=== PATIENT | male | born 1955 | race Caucasian/White ===

== ENCOUNTER → 2018-01-12 12:16 | Outpatient (CLI) | payer BC, SELFPAY ==
[2018-01-12 13:26] LABS: AST(SGOT) 15 U/L (15-37); Alanine Aminotransfer ALT/SGPT 24 U/L (16-61); Albumin, Serum 3.6 g/dL (3.2-5.0); Alkaline Phosphatase 118 U/L (45-117); Bilirubin, Direct 0.13 mg/dL (0.00-0.30); Cholesterol 186 mg/dL (200); Globulin 3.9 g/dL (2.2-4.2); High Density Lipoprotein 39 mg/dL; Protein, Total 7.5 g/dL (6.4-8.2); Triglycerides 126 mg/dL; Very Low Density Lipoprotein 25 mg/dL (5-40)
== END ==
PROVIDERS: Family Provider Preventive Medicine Occupational Medicine; PCP Preventive Medicine Occupational Medicine; Visit Provider Physician Assistant Medical
DX: E78.5 Hyperlipidemia, unspecified (principal); Z79.899 Other long term (current) drug therapy
CPT/HCPCS: 36415; 80061; 80076; 84153

== ENCOUNTER → 2018-07-08 09:53 | Outpatient (CLI) | payer BC, SELFPAY ==
[2018-07-08 11:32] LABS: AST(SGOT) 12 U/L (15-37); Alanine Aminotransfer ALT/SGPT 24 U/L (16-61); Albumin, Serum 3.6 g/dL (3.2-5.0); Alkaline Phosphatase 101 U/L (45-117); Bilirubin, Direct 0.16 mg/dL (0.00-0.30); Cholesterol 152 mg/dL (200); Globulin 3.6 g/dL (2.2-4.2); High Density Lipoprotein 42 mg/dL; PSA,Total- Diagnostic 5.88 ng/mL (0.0-4.0); Protein, Total 7.2 g/dL (6.4-8.2); Triglycerides 93 mg/dL; Very Low Density Lipoprotein 19 mg/dL (5-40)
== END ==
PROVIDERS: Family Provider Preventive Medicine Occupational Medicine; PCP Preventive Medicine Occupational Medicine; Referring Provider Urology; Visit Provider Urology
DX: R97.20 Elevated prostate specific antigen [PSA] (principal); E78.5 Hyperlipidemia, unspecified
CPT/HCPCS: 36415; 80061; 80076; 84153

== ENCOUNTER → 2019-01-11 14:45 | Outpatient (CLI) | payer BC, SELFPAY ==
[2018-08-18 16:29] VITALS: BMI 29.7
[2019-01-11 16:02] LABS: PSA,Total- Diagnostic 5.61 ng/mL (0.0-4.0)
== END ==
PROVIDERS: Family Provider Preventive Medicine Occupational Medicine; PCP Preventive Medicine Occupational Medicine; Referring Provider Urology; Visit Provider Urology
DX: R97.20 Elevated prostate specific antigen [PSA] (principal)
CPT/HCPCS: 36415; 84153

== ENCOUNTER 2019-08-09 12:02 | Emergency (ER) | payer MEDICARE, BC, SELFPAY ==
[2018-08-18 16:29] VITALS: BMI 29.7
[2019-08-09 12:03] VITALS: BP 137/77; PULSE 81; RESP 16; TEMP 37.1; O2SAT 98
--- NOTE | 2019-08-09 12:45 | CT_ITS ---
STUDY: CT ABDOMEN AND PELVIS WITHOUT CONTRAST REASON FOR EXAM: Male, 63 years old. Left lower quadrant pain. History of diverticulitis. RADIATION DOSAGE (If Supplied By Facility): CTDIvol = ( 12.09 ) mGy, DLP = ( 811.29 ) mGycm TECHNIQUE: Transaxial images were obtained from the dome of the diaphragm to the symphysis pubis without oral contrast, and without intravenous contrast. Sagittal and coronal images were reconstructed. Individualized dose optimization techniques were used for this CT. COMPARISON: None. FINDINGS: The visualized lung bases are unremarkable. The visualized portions of the heart are within normal limits. Normal liver. Normal gallbladder and extrahepatic biliary system. Normal spleen. Normal pancreas. Normal bilateral adrenal glands. 1 cm cyst in the lower pole of the right kidney. Normal left kidney. There is a small hiatal hernia. Normal small intestine. There is diverticulosis, with thickening of the colon wall, and pericolonic inflammation changes consistent with acute diverticulitis. The appendix is visualized and appears normal. There is diffuse atherosclerotic calcification of the abdominal aorta, without a demonstrated aneurysm. Normal inferior vena cava. There is borderline retroperitoneal lymphadenopathy with enlarged nodes no greater than 10mm in the short axis diameter. Thickened gallbladder wall. There is enlargement of the prostate gland. The prostate measures 4.5 sinus by 5.2 cm. Prostatic calcifications. Small rounded calcifications are seen in the right and left scrotal sacs. Small bilateral inguinal hernias containing fat. Grade 1 anterolisthesis of L5 on S1 with spondylolysis of the pars interarticularis of the L5 vertebrae. Mild degree of disc space narrowing in the lower lumbar spine. Old compression fracture of the T8 vertebrae. CT/Abdomen/Pelvis W IV Cont ONLY IMPRESSION: No uncomplicated acute sigmoid diverticulitis. Thickened gallbladder wall. Enlargement of the prostate with calcifications. Electronically Signed: Beau العلي, at 14:13 EST , Service support ,
[2019-08-09] MEDS: 0.9% Normal Saline 1,000 ML 1000 ML IV (13:05)
--- NOTE | 2019-08-09 13:10 | ED.VIS.GI ---
History of Present Illness <Johny Membreno - Last Filed: 08/09/19 14:54> Informant: Patient, Family - Abdominal Pain/Flank Pain Onset: Days - 3 days Context: Gradual Onset Timing: Continuous Quality: Dull Location: LLQ Current Severity: Moderate Maximum Severity: Severe Worsened by: Car ride, Movement Relieved by: Remaining Still - Nausea/Vomiting/Emesis GI Symptom: Negative for: Nausea, Vomiting - Diarrhea/Melena/Hematochezia GI Symptom: Diarrhea. Negative for: Melena, Hematochezia Onset: Yesterday Stool Quality: Loose, Watery Severity: Moderate Episodes: 3 Associated Symptoms: Negative for: Dysuria, Frequency, Hematuria, Urgency Narrative: 63-year-old male with a past medical history of hypertension and hypercholesterolemia presents to the emergency department with 3 days of worsening left lower quadrant abdominal pain. Prior similar symptoms: No Recent Illness/Hospitalization: No <Jordin Meza - Last Filed: 08/09/19 15:01> Chief Complaint: Abd Pain Past Medical History <Johny Membreno - Last Filed: 08/09/19 14:54> Prior records reviewed: Yes Past Medical History: - - HTN, hypercholesterolemia Surgical History: herniorrhaphy Lives: With Family Smoking Status: Never smoker <Jordin Meza - Last Filed: 08/09/19 15:01> - Allergies and Home Meds Allergies/Adverse Reactions: Allergies No Known Allergies Allergy (Verified 08/09/19 12:07) Primary Care Physician: Bora Gould DO [Primary Care Provider] - 5-7 Days Review of Systems All systems negative except as indicated General: Denies: Chills, Fever Cardiovascular: Denies: Chest pain Respiratory: Denies: Dyspnea Gastrointestinal: Reports: Abdominal pain, Diarrhea. Denies: Nausea, Vomiting, Constipation, Melena, Hematochezia Genitourinary: Denies: Dysuria, Hematuria, Frequency Musculoskeletal: Denies: Neck pain, Back pain Skin: Denies: Rash Neurological: Denies: Headache, Weakness <Jordin Meza - Last Filed: 08/09/19 15:01> Physical Exam Vital Signs/Narrative: Vital Signs Temp Pulse Resp BP Pulse Ox 08/09/19 12:03 98.8 F 81 16 137/77 H 98 <Johny Membreno - Last Filed: 08/09/19 14:54> Vital Signs/Narrative: Vital Signs Temp Pulse Resp BP Pulse Ox 08/09/19 12:03 98.8 F 81 16 137/77 H 98 Inital Vital Signs reviewed: Yes General: Well nourished, Well developed, No Acute Distress Head: Normocephalic, Atraumatic Eyes: Perrl, EOMI ENT: Moist mucous membranes Neck: Supple, Nontender, No lymphadenopathy Cardiovascular: Regular rate, Regular rhythm, No murmurs Respiratory: No distress, CTA bilaterally, Chest nontender Abdomen: Soft, Nondistended, Normal bowel sounds, No masses, Tender - LLQ TTP Back: Nontender, Normal Inspection. Negative for: CVA tenderness Extremities: Nontender, No edema Skin: Normal color, No rash Neurological: Alert, Oriented x3 <Jordin Meza - Last Filed: 08/09/19 15:01> Diagnostic/Tx/Re-eval - Medical Decision Making Patient evaluated with our physician community program assistant. 3-year-old male with left lower quadrant abdominal pain for several days. No trauma. HEENT exam unremarkable. Neck nontender. Lungs clear to auscultation. Heart regular rhythm no murmur. Abdomen is soft. Nondistended. Normal bowel sounds. No peritoneal signs. No pulsatile mass. He is mildly tender left lower quadrant. Right upper right lower quadrant unremarkable. No signs of obstruction. Patient moving all 4 extremities. Neurologically is awake and alert. CAT scan with IV contrast shows left lower quadrant sigmoid diverticulitis. No abscess no perforation. Unremarkable. CBC shows slightly elevated white count. Otherwise labs are unremarkable. Patient's repeat exam is doing well at 1450 p.m. Discussed all test results and treatment with him. He will be started on both Cipro twice daily and Flagyl 3 times daily for 10 days and follow-up with his doctor. He will use Tylenol and/or Motrin at home for pain. He did not want anything stronger. Impression 1. Acute left lower quadrant abdominal pain secondary to sigmoid diverticulitis <Johny Membreno - Last Filed: 08/09/19 14:54> CT: Abdomen and Pelvis - Acute uncomplicated sigmoid diverticulitis <Jordin Meza - Last Filed: 08/09/19 15:01> ED Disposition <Johny Membreno - Last Filed: 08/09/19 14:54> <Jordin Meza - Last Filed: 08/09/19 15:01> - Plan for ED Patient: Disposition: Home or Assisted Living Instructions: Diverticulitis Prescriptions: Ciprofloxacin [Cipro] 500 mg PO BID #20 tab Prescription Printed metroNIDAZOLE [Flagyl] 500 mg PO Q8H #30 tab Prescription Printed Referrals: Bora Gould DO [Primary Care Provider] - 5-7 Days Additional Instructions: You have diverticulitis or inflammation or infection of your left lower colon. Cipro 1 pill twice a day for 10 days. Flagyl 1 pill 3 times a day for 10 days. Complete both antibiotics. Up with your doctor to ensure your improving return to ER if you are feeling a lot worse.
[2019-08-09 13:12] LABS: Red Blood Cells-Urine 0 SEEN /hpf (0-5)
[2019-08-09 13:14] LABS: Color, Urine Yellow (Yellow); Glucose, Dipstick Normal (Normal); Ketone-Dipstick Negative (Negative); Leukocyte Esterase-Dipstick Negative /ul (Negative); Nitrite-Dipstick Negative (Negative); Occult Blood-Urine Negative /ul (Negative); Protein-Dipstick Negative (Negative); Urine Bilirubin Dipstick Negative (Negative); Urine Clarity Sl. Cloudy (Clear); Urine Urobilinogen Normal (Normal); Urine pH 6.5 (5.0 - 8.0)
[2019-08-09 13:16] LABS: Absolute Lymphocyte Count 1.48 X10^3/uL (0.83-4.51); Absolute Neutrophil Count 11.5 X10^3/uL (2.0-7.7); Basophil# 0.04 X10^3/uL; Basophil% 0.3 % (0-1); Eosinophil# 0.07 X10^3/uL; Eosinophils% 0.5 % (0-5); Hematocrit 41.9 % (40-54); Hemoglobin 13.9 g/dL (13.0-16.5); Lymphocyte # 1.48 X10^3/ul (4.0); Lymphocyte % 10.5 % (19-41); Mean Corp Hgb Conc 33.2 g/dL (32-36); Mean Corpuscular Hgb 31.2 pg (27.0-32.0); Mean Corpuscular Volume 93.9 fL (80-94); Mean Platelet Vol. 9.5 fl (6.2-12.0); Monocyte# 0.98 X10^3/uL; Monocyte% 6.9 % (0-10); NRBC Flagged by Analyzer 0 % (0-5); Neutrophil # 11.47 X10^3/uL (2.7-7.7); Neutrophil % 81.2 % (47-70); Platelet Count 231 K/mm3 (150-450); RBC Distribution Width CV 12.9 % (11.6-14.6); RBC Distribution Width SD 44.3 fl (35.1-43.9); Red Blood Count 4.46 M/mm3 (4.6-6.2); White Blood Count 14.1 K/mm3 (4.4-11.0)
[2019-08-09 13:24] LABS: Bacteria 1+ /hpf (None Seen); Mucous, Urine 1+ /hpf (<or=2+); Squamous Epithelial Cells - UA 0-5 SEEN /hpf (0-5); White Blood Cells 0-5 SEEN /hpf (0-5)
[2019-08-09 13:32] LABS: ALB/GLOB Ratio 0.9 RATIO (0.9-2.4); AST(SGOT) 8 U/L (15-37); Alanine Aminotransfer ALT/SGPT 19 U/L (16-61); Albumin, Serum 3.6 g/dL (3.2-5.0); Alkaline Phosphatase 113 U/L (45-117); Anion Gap 3 (5-15); BUN 10 mg/dL (7-18); BUN/Creat Ratio 11.9 RATIO (10-20); Calcium,Total 9.1 mg/dL (8.5-10.1); Chloride 108 mmol/L (98-107); Creatinine, Serum 0.84 mg/dL (0.70-1.30); EST Glomerular Filtration Rate 97 mL/min (>60); Est Glom Filt Rate - Afr Amer 118 mL/min (>60); Estimated Creatinine Clearance 88.84 ml/min; Globulin 3.8 g/dL (2.2-4.2); Glucose 95 mg/dL (74-106); Potassium 3.9 mmol/L (3.5-5.1); Protein, Total 7.4 g/dL (6.4-8.2); Sodium Level 139 mmol/L (136-145)
[2019-08-09] MEDS: Ketorolac 15 MG/ML Vial IV (13:37)
--- NOTE | 2019-08-09 14:56 | ED.DEP ---
ED Disposition - Plan for ED Patient: Disposition: Home or Assisted Living Instructions: Diverticulitis Prescriptions: Ciprofloxacin [Cipro] 500 mg PO BID #20 tab Prescription Printed metroNIDAZOLE [Flagyl] 500 mg PO Q8H #30 tab Prescription Printed Referrals: Bora Gould DO [Primary Care Provider] - 5-7 Days Additional Instructions: You have diverticulitis or inflammation or infection of your left lower colon. Cipro 1 pill twice a day for 10 days. Flagyl 1 pill 3 times a day for 10 days. Complete both antibiotics. Up with your doctor to ensure your improving return to ER if you are feeling a lot worse.
[2019-08-09 15:01] VITALS: BP 116/70; PULSE 60; RESP 17; O2SAT 98
[2019-08-09] MEDS: metroNIDAZOLE 500 MG Tablet PO (15:06)
[2019-08-09] MEDS: Ciprofloxacin 500 MG Tablet PO (15:06)
== END 2019-08-09 15:09 | disposition home or self-care (01) ==
PROVIDERS: Emergency Provider Physician Assistant Medical; Family Provider Preventive Medicine Occupational Medicine; PCP Preventive Medicine Occupational Medicine
DX: K57.32 Diverticulitis of large intestine without perforation or abscess without bleeding (principal); I10 Essential (primary) hypertension; E78.00 Pure hypercholesterolemia, unspecified
CPT/HCPCS: 74177; 80053; 81001; 85025; 96361; 96374; 99284; J7030; Q9967

== ENCOUNTER → 2019-09-11 09:52 | Outpatient (CLI) | payer MEDICARE, BC, SELFPAY ==
[2019-09-11 12:41] LABS: AST(SGOT) 13 U/L (15-37); Alanine Aminotransfer ALT/SGPT 27 U/L (16-61); Albumin, Serum 3.7 g/dL (3.2-5.0); Alkaline Phosphatase 93 U/L (45-117); Bilirubin, Direct 0.11 mg/dL (0.00-0.30); Cholesterol 161 mg/dL (200); Globulin 3.3 g/dL (2.2-4.2); High Density Lipoprotein 41 mg/dL; Triglycerides 77 mg/dL; Very Low Density Lipoprotein 15 mg/dL (5-40)
== END ==
PROVIDERS: Family Provider Preventive Medicine Occupational Medicine; PCP Preventive Medicine Occupational Medicine; Referring Provider Internal Medicine Cardiovascular Disease; Visit Provider Internal Medicine Cardiovascular Disease
DX: E78.00 Pure hypercholesterolemia, unspecified (principal); E78.5 Hyperlipidemia, unspecified; I25.10 Atherosclerotic heart disease of native coronary artery without angina pectoris
CPT/HCPCS: 36415; 80061; 80076

== ENCOUNTER → 2020-01-27 | Outpatient (CLI) | payer MEDICARE, BC, SELFPAY ==
[2019-09-22 10:47] VITALS: BMI 30.2
== END | disposition home or self-care (01) ==
PROVIDERS: PCP Preventive Medicine Occupational Medicine; Referring Provider Urology; Visit Provider Urology
DX: R97.20 Elevated prostate specific antigen [PSA] (principal)
CPT/HCPCS: 36415; 84153

== ENCOUNTER → 2020-02-02 | Outpatient (CLI) | payer MEDICARE, BC, SELFPAY ==
[2019-09-22 10:47] VITALS: BMI 30.2
--- NOTE | 2020-02-02 14:21 | CT_ITS ---
STUDY: CT ABDOMEN AND PELVIS WITH CONTRAST REASON FOR EXAM: Male, 64 years old. LLQ PAIN W/ DIVERTICULITIS SINCE 08/2019 -- SURG-UMBILICAL and amp; INGUINAL HERNIA REPAIR RADIATION DOSAGE (If Supplied By Facility): CTDIvol = ( 13.48 ) mGy, DLP = ( 997.80 ) mGycm TECHNIQUE: Transaxial images were obtained from the dome of the diaphragm to the symphysis pubis with oral contrast. Oral and amp; IV Readi-CAT and amp; 100mL Isovue-300 was administered. Sagittal and coronal images were reconstructed. Individualized dose optimization techniques were used for this CT. COMPARISON: Comparison is made with prior study August 09, 2019. FINDINGS: The visualized lung bases are unremarkable. The visualized portions of the heart are within normal limits. Normal liver. Normal gallbladder and extrahepatic biliary system. Normal spleen. Normal pancreas. Normal bilateral adrenal glands. Normal right kidney. Normal left kidney. There is a small hiatal hernia. Normal small intestine. Normal colon. The appendix is visualized and appears normal. There is scattered atherosclerotic calcification of the abdominal aorta, without a demonstrated aneurysm. Normal inferior vena cava. There is borderline retroperitoneal lymphadenopathy with enlarged nodes no greater than 10mm in the short axis diameter. Normal urinary bladder. There are prostatic calcifications. Prostatic enlargement. The prostate measures 5.2 cm by 4.6 cm. There is a left-sided inguinal hernia containing adipose tissue. Normal osseous structures. CT/Abdomen/Pelvis WITH Contrast IMPRESSION: Prostatic enlargement with indentation of the bladder base. Small left inguinal hernia containing fat. Electronically Signed: Beau العلي, at 16:05 EDT , Service support ,
[2020-02-02 14:51] LABS: CREATININE FINGERSTICK 0.9 mg/dL (0.70-1.30)
== END | disposition home or self-care (01) ==
LOC: CT 14:17
PROVIDERS: PCP Preventive Medicine Occupational Medicine; Referring Provider Preventive Medicine Occupational Medicine; Visit Provider Preventive Medicine Occupational Medicine
DX: R10.32 Left lower quadrant pain (principal)
CPT/HCPCS: 74177; Q9967

== ENCOUNTER 2020-04-02 18:55 | Emergency (ER) | payer MEDICARE, BC, SELFPAY ==
[2019-09-22 10:47] VITALS: BMI 30.2
[2020-04-02 18:55] VITALS: BP 123/78; PULSE 83; RESP 16; TEMP 37.4; O2SAT 98; BMI 29.6
[2020-04-02] MEDS: Ondansetron 4 MG/2 ML Vial IV (19:24)
[2020-04-02] MEDS: morphine 8 MG/ML Syringe IV (19:24)
--- NOTE | 2020-04-02 19:28 | ED.VISSUMM ---
- ER Visit Summary Date of Service: 04/02/20 Chief Complaint: Left ankle and foot pain after falling from a ladder about 10 to 11 feet. History of Present Illness: The patient is a [address] of hypertension high cholesterol. Patient was working on his camper. Ladder slipped out from under him he fell 10 to 11 feet to the ground. He landed standing up injuring his left ankle and foot. No prior history. Denies any LOC or significant head injury. Denies any back or chest pain. No other complaints. He is on no blood thinners other than baby aspirin. Physical Examination: Older male no acute distress other than pain. Vital signs are stable afebrile. HEENT exam unremarkable atraumatic. Dry reactive light. No signs of trauma to his face or scalp nontender no swelling. C-spine nontender. Trachea midline. Lungs clear to auscultation bilaterally. Heart regular rhythm no murmur. Chest wall nontender. Abdomen soft nontender. Pelvic girdle intact. Both upper extremities are full range of motion are nontender neurovascular intact with 5-5 shop hand strength. Right lower extremity is nontender. Left lower extremity tender and swollen at the ankle and primarily the calcaneus. Foot is neurovascular intact. Normal DP pulse. Able to wiggle his toes. Normal touch sensation. Hip, thigh, knee and proximal tib-fib are nontender no deformity. Test Results: Left ankle x-ray 3 views comminuted calcaneus fracture. Left foot x-ray 3 views again show the comminuted calcaneus fracture. Also what appears to be an old fracture of the base of the fifth metatarsal. Patient has no pain at that site. I discussed all x-rays with him and family. Emergency Department Course and Treatment: Patient treated with morphine Zofran for his ankle injury. X-rays are being obtained. Treatment Plan: Patient be placed in a short leg posterior splint. Walker to ambulate. No weightbearing. Call and follow-up with Dr. Enrike Weber of [facility] tomorrow. Disposition: Discharge Impression: Fall from a ladder from approximately 11 feet. Acute left calcaneus fracture Short leg posterior splint by ER This note was generated with [employer] dictation software. It may contain incorrect words, spelling, and punctuation that were not noted in review of the chart prior to signing ED Disposition - Plan for ED Patient: Referrals: Bora Gould DO [Primary Care Provider] -
--- NOTE | 2020-04-02 20:00 | RAD_ITS ---
STUDY: X-RAY - LEFT SHOULDER REASON FOR EXAM: Male, 64 years old. Fall today. Lt shoulder pain. TECHNIQUE: 3 view(s) of the shoulder. COMPARISON: None. FINDINGS: Narrowed glenohumeral articulation. Narrowed subacromial space consistent with rotator cuff tendon tear. Normal acromioclavicular joint. Normal acromion. Normal humeral head and visualized proximal humerus. The soft tissue structures are unremarkable. Normal visualized pulmonary apex. RAD/Shoulder min 2 Views IMPRESSION: Degenerative changes. No evidence for acute fracture. Electronically Signed: Kevin Ralph MD at 20:35 EDT , Service support ,
--- NOTE | 2020-04-02 20:00 | RAD_ITS ---
STUDY: X-RAY - LEFT FOOT CLINICAL: Male, 64 years old. pt fell off a ladder approx 11 ft onto feet. Generalized left foot pain TECHNIQUE: 3 view(s) of the foot. COMPARISON: None. FINDINGS: Normal talus,, and tarsal bones. Normal visualized subtalar, talonavicular, calcaneocuboid, tarsal and tarsometatarsal articulations. Transverse fracture of the base of the fifth metatarsal with mild separation of fracture fragments Mildly impacted comminuted fracture of the calcaneus with mild separation of fracture fragments. Normal metatarsophalangeal joint of the great toe. Normal tibial and fibular sesamoid bones. Normal interphalangeal joint of the great toe. Normal phalanges of the great toe. Normal second through fifth metatarsophalangeal joints. Normal interphalangeal joints and phalanges of the lesser toes. Diffuse soft tissue swelling of the hindfoot.. RAD/Foot min 3 Views IMPRESSION: Mildly impacted comminuted fracture of the calcaneus and transversely oriented fracture through base of the fifth metatarsal. CT would be useful for further evaluation of calcaneal fracture Electronically Signed: Kevin Ralph MD at 20:35 EDT , Service support ,
--- NOTE | 2020-04-02 20:00 | RAD_ITS ---
STUDY: X-RAY - LEFT ANKLE REASON FOR EXAM: Male, 64 years old. pt fell off a ladder approx 11 ft onto feet. Generalized left ankle pain. TECHNIQUE: 3 view(s) of the ankle. COMPARISON: None. FINDINGS: Normal visualized distal tibia and fibula. Normal medial and lateral malleoli. Normal tibiotalar articulation and ankle mortise. Normal visualized talus. Acute mildly impacted comminuted fracture of the calcaneus with mild separation of fracture fragments. Deformity of the base of fifth metatarsal possibly due to chronic posttraumatic deformity The visualized subtalar, talonavicular, calcaneocuboid and tarsal articulations are normal. Diffuse soft tissue swelling of the hindfoot. RAD/Ankle min 3 Views IMPRESSION: Acute mildly impacted comminuted calcaneal fracture. Deformity of the base of fifth metatarsal possibly due to old trauma Electronically Signed: Kevin Ralph MD at 20:42 EDT , Service support ,
[2020-04-02 20:53] VITALS: BP 115/82; PULSE 78; RESP 15; O2SAT 98
--- NOTE | 2020-04-02 21:19 | DCINST.ED_ITS ---
ED Disposition - Plan for ED Patient: Disposition: Home or Assisted Living Prescriptions: Hydrocodone/Acetaminophen [[place] 5-325 Tablet] 1 ea PO Q4H PRN PRN #30 tab PRN Reason: Pain Or Fever Prescription Printed Hydrocodone/Acetaminophen [[place] 7.5-325 Tablet] 1 ea PO Q4H PRN PRN 5 Days #30 tab PRN Reason: Pain Or Fever Prescription Printed Referrals: Elver Weber MD [STAFF PHYSICIAN] - As soon as possible Additional Instructions: You have a calcaneus fracture or heel bone fracture. No weightbearing. Ice and elevate. [place] which is generic Vicodin for pain. Follow-up with Dr. Enrike Weber's office tomorrow to be seen this week.
[2020-04-02] MEDS: morphine 8 MG/ML Syringe 6 MG IV (21:40)
[2020-04-02 22:10] VITALS: BP 127/64; PULSE 78; RESP 17; O2SAT 99
[2020-04-02 22:30] VITALS: BP 118/73; PULSE 79; RESP 17; O2SAT 99
== END 2020-04-02 22:31 | disposition home or self-care (01) ==
PROVIDERS: Emergency Provider Emergency Medicine; PCP Preventive Medicine Occupational Medicine
DX: S92.002A Unspecified fracture of left calcaneus, initial encounter for closed fracture (principal); W11.XXXA Fall on and from ladder, initial encounter; Y93.89 Activity, other specified; Y92.89 Other specified places as the place of occurrence of the external cause; Y99.8 Other external cause status
CPT/HCPCS: 29515; 73030; 73610; 73630; 96374; 96375; 96376; 99285; A4216; J2405

== ENCOUNTER → 2020-04-03 | Outpatient (CLI) | payer MEDICARE, BC, SELFPAY ==
[2020-04-02 18:55] VITALS: BMI 29.6
--- NOTE | 2020-04-03 16:12 | EKG12_ITS ---
Test Reason : PRE-OP Blood Pressure : / mmHG Vent. Rate : 091 BPM Atrial Rate : 091 BPM P-R Int : 156 ms QRS Dur : 092 ms QT Int : 366 ms P-R-T Axes : 051 028 040 degrees QTc Int : 450 ms Normal sinus rhythm Normal ECG Confirmed by HELEN MA ([id number]), editor producer RADHA MILLARD ([id number]) on 04/08/2020 2:16:03 PM Referred By: Heather Groves Confirmed By:HELEN MA
--- NOTE | 2020-04-03 16:14 | CT_ITS ---
CT of the left foot and ankle INDICATION: Trauma TECHNIQUE: CT of the left foot and ankle was performed in the axial plane without contrast followed by sagittal and coronal reconstructions. Radiographic technique was optimized to limit patient radiation dose. DLP was 476.57 FINDINGS: There is an acute impacted comminuted intra-articular fracture of the calcaneus with very mild separation of fracture fragments. The subtalar joints appear to be well-maintained.. There is also a tiny comminuted chip fracture of the posterior talus with minor separation of fracture fragments. The ankle joint space is well-maintained. No other fractures are identified CT/Extremity Lower without Contra IMPRESSION: Acute impacted comminuted intra-articular fractures of the calcaneus with mild separation of fracture fragments in association with tiny comminuted fracture of the posterior talus. Subtalar joints appear to be well maintained. No other fractures are identified Electronically Signed: Kevin Ralph MD at 16:46 EDT , Service support ,
--- NOTE | 2020-04-03 16:18 | RAD_ITS ---
STUDY: X-RAY CHEST REASON FOR EXAM: Male, 64 years old. pre-op TECHNIQUE: PA and lateral COMPARISON: May 26, 2017 FINDINGS: The lungs are clear and expanded. There is no demonstrated pleural abnormality. Normal size heart. Normal mediastinum. Tiny right perihilar granulomatous calcifications. Normal visualized pulmonary arteries. Normal visualized aortic arch and descending thoracic aorta. Dorsal spine demonstrates degenerative change and multilevel chronic compression deformities Normal visualized ribs, clavicles, and shoulders. There is no demonstrated abnormality of the visualized soft tissue structures of the upper abdomen. No significant change since prior exam RAD/Chest PA and Lateral IMPRESSION: No acute cardiopulmonary pathology Electronically Signed: Kevin Ralph MD at 17:00 EDT , Service support ,
[2020-04-03 17:14] LABS: Absolute Lymphocyte Count 2.15 X10^3/uL (0.83-4.51); Absolute Neutrophil Count 8.3 X10^3/uL (2.0-7.7); Basophil# 0.03 X10^3/uL; Basophil% 0.3 % (0-1); Eosinophil# 0.07 X10^3/uL; Eosinophils% 0.6 % (0-5); Hematocrit 42.6 % (40-54); Hemoglobin 14.1 g/dL (13.0-16.5); Lymphocyte # 2.15 X10^3/ul (4.0); Mean Corp Hgb Conc 33.1 g/dL (32-36); Mean Corpuscular Hgb 31.3 pg (27.0-32.0); Mean Corpuscular Volume 94.7 fL (80-94); Mean Platelet Vol. 9.6 fl (6.2-12.0); Monocyte# 0.74 X10^3/uL; Monocyte% 6.5 % (0-10); NRBC Flagged by Analyzer 0 % (0-5); Neutrophil # 8.28 X10^3/uL (2.7-7.7); Neutrophil % 73.1 % (47-70); Platelet Count 252 K/mm3 (150-450); RBC Distribution Width CV 13.2 % (11.6-14.6); RBC Distribution Width SD 44.7 fl (35.1-43.9); White Blood Count 11.3 K/mm3 (4.4-11.0)
[2020-04-03 17:29] LABS: International Normalized Ratio 1.1; Prothrombin Time (Protime)PT. 13.4 SECONDS (11.7-14.9)
[2020-04-03 17:30] LABS: Partial Thromboplast Time 26.7 Seconds (24.1-36.2)
[2020-04-03 17:39] LABS: Hemoglobin A1c 5.2 % (3.8-5.6)
[2020-04-03 17:56] LABS: Anion Gap 6 (5-15); BUN 13 mg/dL (7-18); BUN/Creat Ratio 12.5 RATIO (10-20); Calcium,Total 8.8 mg/dL (8.5-10.1); Chloride 109 mmol/L (98-107); Creatinine, Serum 1.04 mg/dL (0.70-1.30); EST Glomerular Filtration Rate 76 mL/min (>60); Est Glom Filt Rate - Afr Amer 92 mL/min (>60); Glucose 124 mg/dL (74-106); Potassium 3.5 mmol/L (3.5-5.1); Sodium Level 139 mmol/L (136-145)
== END | disposition home or self-care (01) ==
PROVIDERS: PCP Preventive Medicine Occupational Medicine; Referring Provider Registered Nurse; Visit Provider Registered Nurse
DX: Z01.818 Encounter for other preprocedural examination (principal); I10 Essential (primary) hypertension; S92.012A Displaced fracture of body of left calcaneus, initial encounter for closed fracture; M25.572 Pain in left ankle and joints of left foot
CPT/HCPCS: 36415; 71046; 73700; 80048; 83036; 85025; 85610; 85730; 93005

== ENCOUNTER 2020-04-18 13:45 | Observation (INO) | payer MEDICARE, BC, SELFPAY ==
[2020-04-18] VITALS (11 sets, daily range): BP systolic 99–127; BP diastolic 46–90; PULSE 76–108; RESP 14–18; TEMP 36.2–36.9; O2SAT 93–98; BMI 29.5
[2020-04-18] MEDS: Lactated Ringers 1,000 ML 100 ML IV ×2 (09:01→18:40)
[2020-04-18] MEDS: Cefazolin 2 GM in 0.9% Normal Saline 100 ML IV ×2 (09:40→17:26)
--- NOTE | 2020-04-18 10:00 | RAD_ITS ---
STUDY: X-RAY - LEFT CALCANEUS REASON FOR EXAM: Male, 64 years old. ORIF calcaneous TECHNIQUE: 26 intraoperative view(s) of the calcaneus were obtained. COMPARISON: Previous study of 04/02/2020 FINDINGS: Multiple intraoperative views demonstrate internal fixation with 4 screws of previously reported calcaneal fracture. Fracture fragments appear in good alignment. RAD/Calcaneus min 2 Views IMPRESSION: Internal fixation with 4 screws are previously reported calcaneal fracture. Fracture appears in good alignment. Exposure time and estimated radiation dose were not reported. Electronically Signed: Thierno Wong MD at 16:51 EDT , Service support ,
--- NOTE | 2020-04-18 13:52 | RAD_ITS ---
STUDY: X-RAY - LEFT FOOT CLINICAL: Male, 64 years old. post op left calcaneus orif TECHNIQUE: 4 view(s) of the foot. COMPARISON: None. FINDINGS: Status post internal fixation with 4 screws previously noted calcaneal fracture is noted. Fracture appears in good alignment. Normal visualized subtalar, talonavicular, calcaneocuboid, tarsal and tarsometatarsal articulations. A nondisplaced Youngblood fracture of the fifth metatarsal base is noted. This is of indeterminate age. Normal metatarsophalangeal joint of the great toe. Normal tibial and fibular sesamoid bones. Normal interphalangeal joint of the great toe. Normal phalanges of the great toe. Normal second through fifth metatarsophalangeal joints. Normal interphalangeal joints and phalanges of the lesser toes. The soft tissue structures are unremarkable. RAD/Foot min 3 Views IMPRESSION: Internal fixation with 4 screws of a previously noted calcaneal fracture. Fracture appears in good alignment. Nondisplaced Youngblood fracture of indeterminate age of the fifth metatarsal base is again seen. Electronically Signed: Thierno Wong MD at 16:55 EDT , Service support ,
--- NOTE | 2020-04-18 13:58 | RAD_ITS ---
STUDY: X-RAY - LEFT ANKLE REASON FOR EXAM: Male, 64 years old. post op left calcaneus orif TECHNIQUE: 3 view(s) of the ankle. COMPARISON: Prior study of 04/02/2020 FINDINGS: Normal visualized distal tibia and fibula. Normal medial and lateral malleoli. Normal tibiotalar articulation and ankle mortise. There is internal fixation with 4 screws of previously reported calcaneal fracture. Fracture fragments appear in good alignment. The visualized subtalar, talonavicular, calcaneocuboid and tarsal articulations are normal. There is also demonstrated a nondisplaced Youngblood fracture of the base of the fifth metatarsal. The soft tissue structures are unremarkable. RAD/Ankle min 3 Views IMPRESSION: Internal fixation with 4 screws are previously noted comminuted calcaneal fracture, which appears in good position. Nondisplaced fifth metatarsal Youngblood fracture again noted. Electronically Signed: Thierno Wong MD at 16:53 EDT , Service support ,
--- NOTE | 2020-04-18 13:59 | OP.PCM_ITS ---
Problem List (1) Left calcaneal fracture Status: Acute Qualifiers: Encounter type: initial encounter Calcaneus location: body Fracture type: closed Fracture alignment: displaced Qualified Code(s): S92.012A - Displaced fracture of body of left calcaneus, initial encounter for closed fracture Report of Operation Date of Procedure: 04/18/20 Pre-Operative Diagnosis: 1. Left calcaneus fracture, displaced, closed Post-Operative Diagnosis: Same as preoperative Surgery/Procedure Performed:: 1. Open reduction with internal fixation of left calcaneus fracture Description of Surgical Findings:: Consistent with diagnosis. Reduction of deformity achieved and held with internal fixation. Reduction of posterior facet achieved and held with internal fixation. cushion assembler: Heather Groves Type of Anesthesia:: General/Regional - A popliteal and saphenous block was given to the left lower extremity Anesthesiologist: Fred Rajan Special Medications: 2 g of Ancef given preoperatively Specimen's removed: None Drains: None Estimated Blood Loss (mL): 150 Description of Procedure: Pathology: None Anesthesia: General with a popliteal saphenous block to left lower extremity Hemostasis: Pneumatic thigh tourniquet placed at the level of the left thigh at 300 mmHg for 129 minutes Materials: #1. [place] Hydrocet. 2. [place] 4.0 x 36 mm cannulated screw. 3. [place] 4.0 x 34 mm cannulated screw. 4. Gato 5.0 x 44 mm cannulated screw. 5. Gato 5.0 x 48 mm cannulated screw. 6. Size 2-0 Vicryl. 7. Size 3-0 Vicryl. 8. Size 3-0 nylon Injectables: None Complications: None Condition: Stable Indications: Patient is a 64-year-old male with multiple medical problems who suffered a slip and fall off of the roof of his camper on April 02, 2020. Patient states that he fell directly onto his left heel bone. Patient felt immediate pain after the injury, and was unable to bear weight. Patient presented to the [facility] emergency department for further evaluation. At that time, x-rays were taken, revealing calcaneus fracture. Patient followed up with Heather Groves, nurse practitioner, on April 03, 2020. At that time, she ordered a CT scan of his left ankle to do assess and plan for surgical intervention. Patient initially saw me on April 12. At that time, the x-rays and the CT scan were gone over with the patient. I discussed with the patient that he does have a fracture of his heel bone, and discussed th e disease process and nature of the injury. I did discuss that it was in multiple pieces, and that it was shifted out of alignment. Furthermore, the fracture did go into his subtalar joint. I did discuss with the patient that these fractures are difficult to treat, and likely lead to continued arthritis and revisional subtalar joint fusion in the future. I discussed conservative therapy for this, including nonweightbearing and a below the knee cast for period of up to 3 months. I discussed surgical intervention for the patient, including open reduction with internal fixation of the left calcaneus. Risks and benefits of both treatment options were discussed with the patient. Risks of surgical intervention would include but not limited to delayed or nonhealing wounds, delayed or nonhealing bone, DVT, infection, decreased function of limb, continued pain, early onset arthritis, loss of limb, loss of life. All the patient's questions were answered to satisfaction and all of his concerns were addressed. No guarantees were made as to the outcome of the procedure. Due to the fracture that was present, I recommended surgical intervention. Patient displayed verbal understanding, and was agreeable to surgical intervention. Due to the significant swelling that was present, I recommended a least waiting 1 more week to decrease the chance of wound complications. Operative report: Before the patient brought to the operating room, the risks of the surgical intervention were discussed once again with the patient. Risks of surgical intervention would include but not limited to delayed or nonhealing wounds, delayed or nonhealing bone, DVT, infection, decreased function of limb, continued pain, early onset arthritis, loss of limb, loss of life. All the patient's questions were answered to satisfaction and all of his concerns were addressed. No guarantees were made as to the outcome of the procedure. Patient understood all aspects of the procedure, and consent was then signed by the patient. Before the patient was brought to the operating room, the anesthesiologist administered a popliteal and saphenous block to the left lower extremity. Patient was then brought to the operating room and placed on the operating table in supine position. At that time, general anesthesia was obtained and anesthesia took control the airway. Patient was then placed in a lateral decubitus position with care being taken to make sure that all pressure points were well-padded. The left lower extremity was elevated above the right lower extremity via blankets. Next, a well-padded pneumatic thigh tourniquet was placed on the level of the left thigh. The left foot, ankle, leg were then scrubbed, prepped, draped in the usual sterile manner. At this time, attention was then directed to the lateral aspect of the left foot and ankle. Radiographic evaluation was performed to determine the superior, posterior, and inferior aspect of the tuberosity, tip of the fibula, and fourth metatarsal base. These were then marked on the patient. Next, the left lower extremity was elevated and exsanguinated via Esmarch and inflation of the pneumatic tourniquet was performed to 300 mmHg. Attention was then directed back to the lateral aspect of the left foot and ankle. At this time, a #15 blade was used to perform a linear longitudinal incision starting in the distal tip of the lateral malleolus extending distally to the base of the fourth metatarsal. This incision was deepened utilizing sharp and blunt dissection. Care was taken retract all vital neural and vascular structures. All bleeders were cauterized and ligated as necessary. Next, the peroneal tendons were identified. The peroneal tendon sheath was incised along the longitudinal axis of the tendons. The peroneal tendons were then inspected. No damage to the peroneal tendons was identified. These were then retracted inferiorly. Next, an incision was made through the capsule of the posterior, anterior, middle facets of the subtalar joint. The periosteal and capsular structures were then reflected superiorly and inferiorly, thus exposing the subtalar joint at the operative site. At this time, the posterior facet was inspected. The main fracture line was noted to go through the posterior facet out the posterior inferior aspect of the calcaneus body. At this time, the 5.0 external fixator pin was inserted under live radiographic evaluation for the posterior aspect of the calcaneus tuberosity extending superiorly and anteriorly towards the posterior facet. Care was taken make sure that this external fixator pin did not penetrate the fracture and did not penetrate the posterior facet. Once was inserted, the Angelita-Shola maneuver was performed to reduce the calcaneus fracture. Furrichard chun, this reduced the posterior facet back into anatomical alignment. After reduction, this fracture was held via temporary fixation. Radiograph evaluations then performed. The calcaneus fracture was noted to be out of varus alignment. Furthermore, the height of the calcaneus was noted to be restored and the posterior facet of the calcaneus was noted to articulate with the posterior facet of the talus. Next, 2 K wires for the 4.0 cannulated screws were inserted from lateral to medial in the subchondral portion of the calcaneal posterior facet aimed plantarly. Care was taken to make sure these K wires did not penetrate the posterior facet. Radiograph evaluation was performed. The K wires were noted to be in adequate position and were noted to be aimed towards the sustentaculum ajay. These K wire was then measured and at this time to the [place] 4.0 cannulated screws were inserted over the K wires in standard AO fixation. Of note during insertion of the screws was the adequate compression of the posterior facet of the subtalar joint. Furthermore, no shifting any of the fragments occurred during insertion of the screws. Once the screws were fully inserted, the K wires were then removed. Radiograph evaluation was then performed. The screws were noted to neither be too long or too short and were to hold the posterior facet in the correct the reduced position. Next, attention was then directed the posterior superior lateral aspect of the calcaneus. At this time, a K wire was driven percutaneously from posterior superior to inferior distal as perpendicular to the posterior aspect of the fracture site through the calcaneus body. Once this K wire was fully inserted, radiograph evaluation was performed. The K wire was noted to be well contained within the body and noted to be as perpendicular to the fracture site as possible. Next, a second K wire was driven in a percutaneous fashion through the midportion of the midsection of the Achilles tendon extending anteriorly and inferiorly through the superior portion of the calcaneus body. This was inserted as perpendicular to the fracture site as possible. This was and at the inferior portion of the calcaneus. Once this K wire was inserted, radiograph evaluation was then performed. The K wire was noted to be well contained within the body of the calcaneus. At this time, both of these K wires were measured, and at this time, 2 of the Gato 5.0 cannulated screws were inserted, 1 over each K wire, in standard AO fixation. Of note during insertion of the screws was the adequate compression of the fracture. Furthermore, no shifting any of the fragments occurred during insertion of the screws. Once the screws were fully inserted, all temporary fixation was then removed, including the external fixator pin. Radiograph evaluation was then performed. The screws are noted to hold the calcaneus in the correct the reduced position. Furthermore, the screws noted either be too long or too short. Next, all the surgical sites were irrigated with copious amounts normal sterile saline. At this time, [employer] Hydroset was used to backfill the external fixator pin site and to help fill in the lateral aspect of the calcaneal fracture site. Care was taken make sure that this did not harden or dry into the subcutaneous tissue. Final radiographs were then performed. These include Broden's view, calcaneal axial view, AP of the foot, and lateral view of the ankle. All these revealed that the hardware was well contained within the calcaneus. The screws noted in either be too long or too short. The calcaneus was noted to be reduced from preoperative assessment. It was out of a varus and shortened position. The posterior facet was noted to be realigned back in anatomical position. At this time, the pneumatic thigh tourniquet was then released and a prompt hyperemic response noted to the entirety of the left lower extremity. All bleeders were cauterized and ligated as necessary. Attention was then directed to the posterior aspect of the Achilles tendon near the percutaneous site. The Achilles tendon transection sitea was then reapproximated and coapted utilizing 2-0 Vicryl. Next, the subcutaneous tissues of the external fixator pin site, and both of the 5.0 percutaneous fixation sites were reapproximated and coapted utilizing size 3-0 Vicryl. The skin of each of these surgical sites was reapproximated coapted utilizing 3-0 nylon in a simple interrupted and horizontal mattress fashion. Attention was then directed back to the lateral aspect of the foot and ankle in the area of the main surgical site. The subcutaneous tissue of the surgical site was reapproximated coapted utilizing size 2-0 Vicryl and 3-0 Vicryl. The skin was reapproximated coapted utilizing size 3-0 nylon in a simple interrupted and horizontal mattress fashion. Each surgical site was then dressed with Betadine soaked gauze, and a dry sterile dressing consisting of 4 x 4 gauze, ABD pads, wrapped with Kerlix. The left foot and ankle were then wrapped with an Josep bandage. Next, a stockinette was placed over the left lower extremity. Cast padding was wrapped from the metatarsal heads extending proximally to level just distal to the tibial tuberosity. A posterior splint was fashioned to the left lower extremity and was adhered to the left lower extremity utilizing Josep bandages. Care was taken to make sure that the foot was held in a slightly everted position to decrease the tension on the lateral skin surgical site as the posterior splint dried. The patient tolerated the anesthesia and the procedure well and was transported to the PACU with vital signs stable and neurovascular status intact to the left lower extremity. After period of postoperative monitoring, patient will be admitted for observation to for continued pain control. The ophthalmology surgical technician, the nurse practitioner, was utilized throughout the entire procedure. She helped with patient positioning, holding of limb, holding of retractors. She helped with exposure throughout. She helped with bandage application and splint application. Without the ophthalmology surgical technician, surgical time would have been increased and surgical outcome could have been less optimal. - Complications None - Admit VTE Documentation VTE Present on Admission: No VTE Mechan Device Prophylaxis: SCD's VTE Pharm Prophylaxis ordered?: Yes
--- NOTE | 2020-04-18 14:25 | PCM.HP.STD ---
Problem List (1) Left calcaneal fracture Status: Acute Qualifiers: Encounter type: initial encounter Calcaneus location: body Fracture type: closed Fracture alignment: displaced Qualified Code(s): S92.012A - Displaced fracture of body of left calcaneus, initial encounter for closed fracture History of Present Illness Date of Admission: 04/18/20 Chief Complaint: left heel pain The patient is a 64 year old M with multiple medical problems who suffered a slip and fall off of the roof of his camper on April 02, 2020. Patient states that he fell directly onto his left heel bone. Patient felt immediate pain after the injury, and was unable to bear weight. Patient presented to the [facility] emergency department for further evaluation. At that time, x-rays were taken, revealing calcaneus fracture. Patient followed up with Heather Groves, nurse practitioner, on April 03, 2020. At that time, she ordered a CT scan of his left ankle to do assess and plan for surgical intervention. Patient initially saw me on April 12. At that time, the x-rays and the CT scan were gone over with the patient. I discussed with the patient that he does have a fracture of his heel bone, and discussed the disease process and nature of the injury. I did discuss that it was in multiple pieces, and that it was shifted out of alignment. Furthermore, the fracture did go into his subtalar joint. I did discuss with the patient that these fractures are difficult to treat, and likely lead to continued arthritis and revisional subtalar joint fusion in the future. I discussed conservative therapy for this, including nonweightbearing and a below the knee cast for period of up to 3 months. I discussed surgical intervention for the patient, including open reduction with internal fixation of the left calcaneus. Risks and benefits of both treatment options were discussed with the patient. Risks of surgical intervention would include but not limited to delayed or nonhealing wounds, delayed or nonhealing bone, DVT, infection, decreased function of limb, continued pain, early onset arthritis, loss of limb, loss of life. All the patient's questions were answered to satisfaction and all of his concerns were addressed. No guarantees were made as to the outcome of the procedure. Due to the fracture that was present, I recommended surgical intervention. Patient displayed verbal understanding, and was agreeable to surgical intervention. Surgery was performed today, and patient was admitted for observation and pain control.[] Past Medical History Past Medical History (Chronic Problems): Chronic Problems (Last Reviewed 09/22/19 @ 10:53 by Fiona Dorsey) LINDA on CPAP (Chronic) Pure hypercholesterolemia (Chronic) Nonrheumatic tricuspid valve regurgitation (Chronic) Non-rheumatic mitral regurgitation (Chronic) Nonrheumatic mitral (valve) prolapse (Chronic) Atherosclerotic heart disease of [place] coronary artery without angina pectoris (Chronic) Mild per heart cath 2016 Essential hypertension (Chronic) Mild pulmonary hypertension (Chronic) Medical History: Medical History (Last Reviewed 09/22/19 @ 10:53 by Fiona Dorsey) LINDA on CPAP (Chronic) G47.33, Z99.89 Pure hypercholesterolemia (Chronic) E78.00 Nonrheumatic tricuspid valve regurgitation (Chronic) I36.1 Non-rheumatic mitral regurgitation (Chronic) I34.0 Nonrheumatic mitral (valve) prolapse (Chronic) I34.1 Atherosclerotic heart disease of [place] coronary artery without angina pectoris (Chronic) I25.10 Mild per heart cath 2016 Essential hypertension (Chronic) I10 Mild pulmonary hypertension (Chronic) I27.20 BPH (benign prostatic hyperplasia) N40.0 GERD (gastroesophageal reflux disease) K21.9 CAD (coronary artery disease) (Inactive) I25.10 Mild per heart cath 2016 Mild mitral regurgitation (Inactive) I34.0 Mild tricuspid regurgitation (Inactive) I07.1 Mitral valve prolapse (Inactive) I34.1 Allergies No Known Allergies Allergy (Verified 04/15/20 08:23) Home Medications: Ambulatory Orders Medication Instructions Recorded Aspirin [Aspirin, Baby] 81 mg PO DAILY@0800 05/26/17 fluticasone propionate 50 50 mcg INTRANASAL BID PRN 10/13/17 mcg/actuation nasal spray,suspension lisinopril 5 mg tablet 5 mg PO DAILY #90 tab 11/09/19 pravastatin 20 mg tablet 20 mg PO QHS #90 tab 11/09/19 Hydrocodone/Acetaminophen [[place] 1 ea PO Q4H PRN PRN #30 tab 04/02/20 5-325 Tablet] Surgical History: Surgical History (Last Reviewed 09/22/19 @ 10:53 by Fiona Dorsey) History of right inguinal hernia repair Z98.890, Z87.19 History of umbilical hernia repair Z98.890, Z87.19 Surgical History: herniorrhaphy, - - left calcaneus ORIF 04/18/2020 Lives: With Family Smoking Status: Never smoker Tobacco Use: Non-smoker Alcohol: Occasional Drugs: None Review of Systems Constitutional: Denies: Anorexia, Chills, Fever, Night Sweats Eyes: Denies: Blurred vision, Cataracts, Conjunctivae Inflammation, Double vision HEENT: Denies: Difficulty Hearing, Difficulty Swallowing, Dysphasia Cardiovascular: Denies: Chest Pain, Claudication, Chest Pressure, Chest Tightness Respiratory: Denies: Cough, Hemoptysis, Shortness of Breath Gastrointestinal: Denies: Abdominal Pain, Constipation, Diarrhea Genitourinary: Denies: Frequency, Hematuria Musculoskeletal: Reports: Foot Pain - left heel pain Neurological: Denies: Balance problems, Blurred vision, Double vision Psychiatric: Denies: Anxiety, Depression Endocrine: Denies: Change in Body Habitus, Heat/ Cold Intolerance, Polydipsia, Polyuria VTE Information - Inpt Only VTE Present on Admission: No VTE Mechan Device Prophylaxis: SCD's VTE Pharm Prophylaxis ordered?: Yes Patient Problems: Active and Suspected Problems (Last Reviewed 09/22/19 @ 10:53 by Fiona Dorsey) Left calcaneal fracture (Acute) Subjective: Patient seen at bedside resting comfortably. Denies any acute complaints at this time. Admits to control pain of his left lower extremity. Objective: Lower extremity physical exam: Dressing is clean, dry, intact the left lower extremity with no evidence of strikethrough noted. Capillary fill time is less than 3 seconds all digits of the left foot. Neurovascular status is intact to the left lower extremity. Foot and ankle appear within a rectus position at this time. - Physical Exam Vitals/I&O's: Vital Signs Temp Pulse Resp BP Pulse Ox 97.7 F L 86 16 106/68 94 04/18/20 13:40 04/18/20 14:20 04/18/20 14:20 04/18/20 14:20 04/18/20 14:20 Oxygen Delivery Method Room Air Weight: 87.9 kg Body Mass Index (BMI) 29.5 Intake and Output for Last 24 Hours 04/16/20 04/17/20 04/18/20 23:59 23:59 23:59 Intake Total 110 / 110 Balance 110 / 110 General: Alert, Oriented x3, Cooperative, No apparent distress HEENT: Atraumatic, PERRLA Oral: Moist Mucosa Neck: Supple, No JVD, Negative Carotid Bruits Lungs: Clear to auscultation, Normal air movement, No rhonchi, No wheeze, No rales Cardiovascular: Regular rate, Regular Rhythm, Normal S1, Normal S2 Abdomen: Bowel Sounds Present, Soft, Non Tender Extremities: No clubbing, Capillary Refill Less than 3 Seconds Skin: No rashes, No breakdown Psych/Mental Status: Alert and oriented to time, place, person, mood and affect Current Medications Acetaminophen (Tylenol) 650 mg PO Q4H PRN PRN PRN Reason: Pain or Fever Hydrocodone Bitart/Acetaminophen ([place] 5mg-325mg) 1 tablet PO Q4H PRN PRN PRN Reason: Pain Score 1-5/10 Docusate Sodium (Colace) 100 mg PO BID RADHA Fluticasone Propionate (Flonase Nasal [place]) spray NASAL BID PRN PRN Reason: ALLERGIES Hydromorphone HCl (Dilaudid Inj) 1 mg IV Q2H PRN PRN PRN Reason: Pain Score 6-10/10 Lactated Ringer's () 1,000 mls @ 100 mls/hr IV .Q10H [facility] Last Admin: 04/18/20 09:01 Dose: 100 mls/hr Documented by: Cefazolin Sodium 2 gm/ Sodium (Chloride) 110 mls @ 150 mls/hr IV Q8H [facility] Lisinopril (Zestril) 5 mg PO DAILY [facility] Pravastatin Sodium (Pravachol) 20 mg PO QHS [facility] Assessment/Plan All Active Problems (Last Reviewed 09/22/19 @ 10:53 by Fiona Dorsey) Left calcaneal fracture (Acute) This is a 64-year-old male with multiple medical problems who underwent a left calcaneus open reduction with internal fixation today. Plan: Patient chart reviewed and patient evaluated. Patient will be admitted to observation for further evaluation and pain control. Patient is to continue his home medications as instructed. Dressing is to be kept clean, dry, intact to left lower extremity. Dressings to be reinforced as needed. Patient is to continue elevation of his left foot above the level of heart at all times. Patient is to continue ice around his left knee 30 minutes every hour as needed. Pain medication ordered for patient to help with pain control. Postoperative prescriptions given to patient's and patient's daughter, to be filled for patient's discharge. We will continue antibiotic prophylaxis at this time. DVT prophylaxis ordered to be given to patient tomorrow, April 19. At this time, we will likely discharge patient tomorrow, April 19, 2020 pending his symptoms. OBSV E&M: 17124 Initial observation care L2
[2020-04-18] MEDS: HYDROcodone Bitartrate/Apap 5/325 Tablet PO ×2 (17:16→23:25)
[2020-04-18] MEDS: 0.9% Saline Lock 10 ML Syringe IV (18:30)
[2020-04-18] MEDS: Ondansetron 4 MG/2 ML Vial IV (18:30)
[2020-04-18] MEDS: Pravastatin 20 MG Tablet PO (21:21)
[2020-04-18] MEDS: Docusate Sodium 100 MG Capsule PO (21:21)
[2020-04-19 01:35] VITALS: BP 107/68; PULSE 93; RESP 16; TEMP 37.1; O2SAT 97
[2020-04-19] MEDS: Cefazolin 2 GM in 0.9% Normal Saline 100 ML IV ×2 (01:41→09:26)
[2020-04-19] MEDS: HYDROcodone Bitartrate/Apap 5/325 Tablet PO ×2 (05:02→09:26)
[2020-04-19 05:05] VITALS: BP 120/73; PULSE 80; RESP 18; TEMP 36.9; O2SAT 100
[2020-04-19] MEDS: Lactated Ringers 1,000 ML 100 ML IV (05:16)
--- NOTE | 2020-04-19 07:27 | DCINST_ITS ---
Discharge Diet: Light diet - advance as tolerated Discharge Activity: May Not Drive, May Not Shower, Use Walker, Use Crutches Weight Bearing Status: No weight bearing Keep extremity elevated above heart level: Left Leg Additional Activity Instructions:: 1. Keep dressing to left leg and foot clean, dry, intact. Do not get dressing wet. If get dressing wet, call office for further instruction. 2. Ice around the left knee 30 minutes every hour while awake until follow-up appointment. 3. Elevate left foot above the level of heart at all times except when using restroom. 4. Do not walk or stand on left foot. Use knee scooter or crutches for assistance. 5. Begin taking doxycycline (antibiotic) today, April 19 as instructed. 6. Begin taking aspirin today, April 19 as instructed. 7. Begin taking pain medication as needed. Call your doctor if your incision/area has: Sudden Increased Bleeding, Increased Pain/ Swelling Call your doctor if you observe: Fever of 101 or Higher, Inability to have a bowel movement, Shortness of breath, Chest pain, Increased palpitations (irregular heartbeat), Calf discomfort, Uncontrolled pain Cleanse incision/area with: Keep Dressing Clean & Dry Allergies/Adverse Reactions: Allergies No Known Allergies Allergy (Verified 04/15/20 08:23) Medications to take at Discharge Aspirin [Aspirin, Baby] 81 mg PO DAILY@0800 05/26/17 fluticasone propionate 50 mcg/actuation nasal spray,suspension 50 mcg INTRANASAL BID PRN 10/13/17 lisinopril 5 mg tablet 5 mg PO DAILY #90 tab 11/09/19 pravastatin 20 mg tablet 20 mg PO QHS #90 tab 11/09/19 Hydrocodone/Acetaminophen [[place] 5-325 Tablet] 1 ea PO Q4H PRN PRN #30 tab 04/02/20 Primary Care Physician: Bora Gould DO [Primary Care Provider] - Test Results: Test results from this visit will be discussed in further detail at your follow- up appointment, if applicable. Please Follow Up With: Terrell Lopez DPM When: on 04/26 as previously scheduled Proposed Discharge Date: 04/19/20
--- NOTE | 2020-04-19 07:33 | PCM.DC.SUM ---
Discharge Date and Diagnosis - Problem List Patient Problems: Active and Suspected Problems (Last Reviewed 09/22/19 @ 10:53 by Fiona Dorsey) Left calcaneal fracture (Acute) Date of Admission: 04/18/20 Date of Discharge: 04/19/20 - Primary Discharge Diagnosis Acute Problems: Active Problems (Last Reviewed 09/22/19 @ 10:53 by Fiona Dorsey) Left calcaneal fracture (Acute) - Secondary Discharge Diagnosis Chronic Problems: Chronic Problems (Last Reviewed 09/22/19 @ 10:53 by Fiona Dorsey) LINDA on CPAP (Chronic) Pure hypercholesterolemia (Chronic) Nonrheumatic tricuspid valve regurgitation (Chronic) Non-rheumatic mitral regurgitation (Chronic) Nonrheumatic mitral (valve) prolapse (Chronic) Atherosclerotic heart disease of [place] coronary artery without angina pectoris (Chronic) Mild per heart cath 2016 Essential hypertension (Chronic) Mild pulmonary hypertension (Chronic) Hospital Course and Treatment Imaging Results: STUDY: X-RAY - LEFT ANKLE REASON FOR EXAM: Male, 64 years old. post op left calcaneus orif TECHNIQUE: 3 view(s) of the ankle. COMPARISON: Prior study of 04/02/2020 FINDINGS: Normal visualized distal tibia and fibula. Normal medial and lateral malleoli. Normal tibiotalar articulation and ankle mortise. There is internal fixation with 4 screws of previously reported calcaneal fracture. Fracture fragments appear in good alignment. The visualized subtalar, talonavicular, calcaneocuboid and tarsal articulations are normal. There is also demonstrated a nondisplaced [place] fracture of the base of the fifth metatarsal. The soft tissue structures are unremarkable. RAD/Ankle min 3 Views IMPRESSION: Internal fixation with 4 screws are previously noted comminuted calcaneal fracture, which appears in good position. Nondisplaced fifth metatarsal [place] fracture again noted. Electronically Signed: Thierno Wong MD at 16:53 EDT , Service support , STUDY: X-RAY - LEFT FOOT CLINICAL: Male, 64 years old. post op left calcaneus orif TECHNIQUE: 4 view(s) of the foot. COMPARISON: None. FINDINGS: Status post internal fixation with 4 screws previously noted calcaneal fracture is noted. Fracture appears in good alignment. Normal visualized subtalar, talonavicular, calcaneocuboid, tarsal and tarsometatarsal articulations. A nondisplaced [place] fracture of the fifth metatarsal base is noted. This is of indeterminate age. Normal metatarsophalangeal joint of the great toe. Normal tibial and fibular sesamoid bones. Normal interphalangeal joint of the great toe. Normal phalanges of the great toe. Normal second through fifth metatarsophalangeal joints. Normal interphalangeal joints and phalanges of the lesser toes. The soft tissue structures are unremarkable. RAD/Foot min 3 Views IMPRESSION: Internal fixation with 4 screws of a previously noted calcaneal fracture. Fracture appears in good alignment. Nondisplaced [place] fracture of indeterminate age of the fifth metatarsal base is again seen. Electronically Signed: Thierno Wong MD at 16:55 EDT , Service support , Operations: - - left calcaneus open reduction with internal fixation on 04/18/2020 Summary of Care Provided: The patient is a 64 year old M with multiple medical problems who suffered a slip and fall off of the roof of his camper on April 02, 2020. Patient states that he fell directly onto his left heel bone. Patient felt immediate pain after the injury, and was unable to bear weight. Patient presented to the [facility] emergency department for further evaluation. At that time, x-rays were taken, revealing calcaneus fracture. Patient initially saw me on April 12. At that time, the x-rays and the CT scan were gone over with the patient. I discussed with the patient that he does have a fracture of his heel bone, and discussed the disease process and nature of the injury. I did discuss that it was in multiple pieces, and that it was shifted out of alignment. Furthermore, the fracture did go into his subtalar joint. I discussed surgical intervention for the patient, including open reduction with internal fixation of the left calcaneus. Risks and benefits of both treatment options were discussed with the patient. Due to the fracture that was present, I recommended surgical intervention. Patient displayed verbal understanding, and was agreeable to surgical intervention. Surgery was performed on 04/18/2020, and patient was subsequently admitted for observation for pain control. After seeing patient today, patient admits to control pain. Patient states that overall, he is feeling well. Patient denies any acute complaints at this time, and feels that he is ready to go home. Patient will be discharged today with postoperative instructions for wound care and follow-up. Patient Problems: Active and Suspected Problems (Last Reviewed 09/22/19 @ 10:53 by Fiona Dorsey) Left calcaneal fracture (Acute) Subjective: Patient seen at bedside resting comfortably. Patient does admit to pain in the left lower extremity, but is controlled with medications. At its worst, the pain is a 6 out of 10, but with pain medication can get down to a 2 out of 10. Patient is kept the dressing clean, dry, intact to left lower extremity. Patient has been elevating and icing as instructed. No acute events reported overnight by nursing staff. Patient states that he did experience some nausea after the surgery, but is no longer experiencing. Overall, patient does feel better since operative intervention. Currently, patient denies fever, chills, nausea, vomiting, shortness of breath, chest pain. Patient denies left calf pain. Objective: Lower extremity physical exam: Dressing is clean, dry, intact to left lower extremity with no evidence of strikethrough or dishevelment noted. Capillary fill time is less than 3 seconds to all digits of the left foot. Light touch sensation is intact to the digits of the left foot. No pain upon palpation or compression of the left calf. Foot and ankle appear in a rectus position and underneath the tibia at this time. Overall, no gross malalignment noted of the left lower extremity. - Physical Exam Vitals/I&O's: Vital Signs Temp Pulse Resp BP Pulse Ox 98.5 F 80 18 120/73 100 04/19/20 05:05 04/19/20 05:05 04/19/20 05:05 04/19/20 05:05 04/19/20 05:05 Oxygen Flow Rate (L/min) 2 Oxygen Delivery Method Room Air Weight: 87.9 kg Body Mass Index (BMI) 29.5 Intake and Output for Last 24 Hours 04/17/20 04/18/20 04/19/20 23:59 23:59 23:59 Intake Total 2311.67 / 2311.67 1490.00 / 1490.00 Output Total 1350 / 1350 1150 / 1150 Balance 961.67 / 961.67 340.00 / 340.00 General: Alert, Oriented x3, Cooperative, No apparent distress, Well developed, Well nourished HEENT: Atraumatic, PERRLA Oral: Moist Mucosa Neck: Supple, No JVD Lungs: Clear to auscultation, Normal air movement, No rhonchi, No wheeze, No rales Cardiovascular: Regular rate, Regular Rhythm, Normal S1, Normal S2 Abdomen: Bowel Sounds Present, Soft, Non Tender, Non-Distended Extremities: Capillary Refill Less than 3 Seconds, Tenderness - Minimal pain upon the patient compression of the lateral aspect of the left ankle near the surgical site. No other areas of tenderness noted. Musculoskeletal: Tenderness - Upon palpation compression of the lateral aspect of the left ankle near the surgical site. No other areas of tenderness noted. Neurological: Sensory exam intact to light touch and pain Psych/Mental Status: Alert and oriented to time, place, person, mood and affect Current Medications Acetaminophen (Tylenol) 650 mg PO Q4H PRN PRN PRN Reason: Pain or Fever Hydrocodone Bitart/Acetaminophen ([place] 5mg-325mg) 1 tablet PO Q4H PRN PRN PRN Reason: Pain Score 1-5/10 Last Admin: 04/19/20 05:02 Dose: 1 tablet Documented by: Docusate Sodium (Colace) 100 mg PO BID RADHA Last Admin: 04/18/20 21:21 Dose: 100 mg Documented by: Enoxaparin Sodium (Lovenox) 40 mg SC X1 ONE Stop: 04/19/20 07:32 Fluticasone Propionate (Flonase Nasal [place]) 1 spray NASAL BID PRN PRN PRN Reason: ALLERGIES Hydromorphone HCl (Dilaudid Inj) 1 mg IV Q2H PRN PRN PRN Reason: Pain Score 6-10/10 Lactated Ringer's () 1,000 mls @ 100 mls/hr IV .Q10H [facility] Last Admin: 04/19/20 05:16 Dose: 100 mls/hr Documented by: Cefazolin Sodium 2 gm/ Sodium (Chloride) 110 mls @ 150 mls/hr IV Q8H [facility] Last Infusion: 04/19/20 02:25 Dose: Infused Documented by: Lisinopril (Zestril) 5 mg PO DAILY [facility] Ondansetron HCl (Zofran) 4 mg IV Q6H PRN PRN PRN Reason: NAUSEA Last Admin: 04/18/20 18:30 Dose: 4 mg Documented by: Pravastatin Sodium (Pravachol) 20 mg PO QHS [facility] Last Admin: 04/18/20 21:21 Dose: 20 mg Documented by: Sodium Chloride () 10 - 40 ml IV UD PRN PRN Reason: SALINE FLUSH Last Admin: 04/18/20 18:30 Dose: 10 ml Documented by: Discharge Diet: Light diet - advance as tolerated Discharge Activity: May Not Drive, May Not Shower, Use Walker, Use Crutches Weight Bearing Status: No weight bearing Keep extremity elevated above heart level: Left Leg Additional Activity Instructions:: 1. Keep dressing to left leg and foot clean, dry, intact. Do not get dressing wet. If get dressing wet, call office for further instruction. 2. Ice around the left knee 30 minutes every hour while awake until follow-up appointment. 3. Elevate left foot above the level of heart at all times except when using restroom. 4. Do not walk or stand on left foot. Use knee scooter or crutches for assistance. 5. Begin taking doxycycline (antibiotic) today, April 19 as instructed. 6. Begin taking aspirin today, April 19 as instructed. 7. Begin taking pain medication as needed. Call your doctor if your incision/area has: Sudden Increased Bleeding, Increased Pain/ Swelling Call your doctor if you observe: Fever of 101 or Higher, Inability to have a bowel movement, Shortness of breath, Chest pain, Increased palpitations (irregular heartbeat), Calf discomfort, Uncontrolled pain Cleanse incision/area with: Keep Dressing Clean & Dry Home Medications: Medications to take at Discharge Aspirin [Aspirin, Baby] 81 mg PO DAILY@0800 05/26/17 fluticasone propionate 50 mcg/actuation nasal spray,suspension 50 mcg INTRANASAL BID PRN 10/13/17 lisinopril 5 mg tablet 5 mg PO DAILY #90 tab 11/09/19 pravastatin 20 mg tablet 20 mg PO QHS #90 tab 11/09/19 Hydrocodone/Acetaminophen [[place] 5-325 Tablet] 1 ea PO Q4H PRN PRN #30 tab 04/02/20 Primary Care Physician: Bora Gould DO [Primary Care Provider] - Please Follow Up With: Terrell Lopez DPM When: on 04/26 as previously scheduled Disposition: Home Minutes spent on discharge:: 30 Patient Condition:: Good Medical Necessity - Tobacco Use Smoking Status: Never smoker Tobacco Use: Non-smoker Meaningful Use Info Meaningful Use Diagnoses (Choose all that apply): None applicable Multi Select Codes - Visit Charges Observation E&M Codin Subsequent observation care L2
[2020-04-19 09:21] VITALS: BP 116/66; PULSE 99; RESP 16; TEMP 36.7; O2SAT 99
[2020-04-19] MEDS: Lisinopril 5 MG Tablet PO (09:27)
[2020-04-19] MEDS: Enoxaparin 40 MG/0.4 ML Syringe SC (09:52)
--- NOTE | 2020-04-19 10:43 | PHA.DC.MR ---
Pharmacy Service has performed discharge medication reconciliation for this patient. No new medications issued at the time of discharge. medications reviewed are from previously reported home medications. The patient's discharge medication list was reviewed for discrepancies and discrepancies were resolved. Home Medications Aspirin [Aspirin, Baby] 81 mg PO DAILY@0800 05/26/17 fluticasone propionate 50 mcg/actuation nasal spray,suspension 50 mcg INTRANASAL BID PRN 10/13/17 lisinopril 5 mg tablet 5 mg PO DAILY #90 tab 11/09/19 pravastatin 20 mg tablet 20 mg PO QHS #90 tab 11/09/19 Hydrocodone/Acetaminophen [[place] 5-325 Tablet] 1 ea PO Q4H PRN PRN #30 tab 04/02/20
== END 2020-04-19 11:10 | disposition home or self-care (01) ==
LOC: MS3 14:25 → SDC 14:26 → MS3 14:26
PROVIDERS: Anesthesiology; Admitting Provider Podiatrist Foot & Ankle Surgery; PCP Preventive Medicine Occupational Medicine; Referring Provider Family Medicine; Visit Provider Podiatrist Foot & Ankle Surgery
PROC: (CPT 28415; principal; 2020-04-18 09:45)
DX: S92.012A Displaced fracture of body of left calcaneus, initial encounter for closed fracture (principal); W13.2XXA Fall from, out of or through roof, initial encounter; Y93.9 Activity, unspecified; Y92.89 Other specified places as the place of occurrence of the external cause; Z11.59 Encounter for screening for other viral diseases; G47.33 Obstructive sleep apnea (adult) (pediatric); E78.00 Pure hypercholesterolemia, unspecified; I10 Essential (primary) hypertension; I25.10 Atherosclerotic heart disease of native coronary artery without angina pectoris; I27.20 Pulmonary hypertension, unspecified; N40.0 Benign prostatic hyperplasia without lower urinary tract symptoms; K21.9 Gastro-esophageal reflux disease without esophagitis; Z79.899 Other long term (current) drug therapy; Z79.82 Long term (current) use of aspirin
CPT/HCPCS: 28415; 73610; 73630; 73650; 76000; 87635; 96361; 96365; 96366; 96372; 96375; 97161; 97165; 99218; 99251; C1713; G2023; J7120; A4216; G0378; G0379; G0463; J2405; U0003

== ENCOUNTER → 2020-07-16 | Outpatient (CLI) | payer MEDICARE, BC, SELFPAY ==
[2020-04-18 15:35] VITALS: BMI 29.5
[2020-07-16 10:55] LABS: AST(SGOT) 13 U/L (15-37); Alanine Aminotransfer ALT/SGPT 25 U/L (16-61); Albumin, Serum 3.6 g/dL (3.2-5.0); Alkaline Phosphatase 142 U/L (45-117); Bilirubin, Direct 0.17 mg/dL (0.00-0.30); Cholesterol 200 mg/dL (200); Globulin 3.8 g/dL (2.2-4.2); High Density Lipoprotein 50 mg/dL; Protein, Total 7.4 g/dL (6.4-8.2); Triglycerides 95 mg/dL; Very Low Density Lipoprotein 19 mg/dL (5-40)
== END | disposition home or self-care (01) ==
LOC: LAB 09:21
PROVIDERS: Urology; PCP Preventive Medicine Occupational Medicine; Referring Provider Internal Medicine Cardiovascular Disease; Visit Provider Internal Medicine Cardiovascular Disease
DX: E78.00 Pure hypercholesterolemia, unspecified (principal); R97.20 Elevated prostate specific antigen [PSA]
CPT/HCPCS: 36415; 80061; 80076; 84153

== ENCOUNTER → 2020-11-08 10:53 | Outpatient (CLI) | payer MEDICARE, BC, SELFPAY ==
[2020-09-09 10:25] VITALS: BMI 30.4
[2020-11-08 12:32] LABS: AST(SGOT) 12 U/L (15-37); Alanine Aminotransfer ALT/SGPT 28 U/L (16-61); Albumin, Serum 3.5 g/dL (3.2-5.0); Alkaline Phosphatase 131 U/L (45-117); Cholesterol 179 mg/dL (200); Globulin 3.7 g/dL (2.2-4.2); High Density Lipoprotein 46 mg/dL; Protein, Total 7.2 g/dL (6.4-8.2); Triglycerides 128 mg/dL; Very Low Density Lipoprotein 26 mg/dL (5-40)
== END ==
PROVIDERS: PCP Preventive Medicine Occupational Medicine; Referring Provider Internal Medicine Cardiovascular Disease; Visit Provider Internal Medicine Cardiovascular Disease
DX: E78.00 Pure hypercholesterolemia, unspecified (principal)
CPT/HCPCS: 36415; 80061; 80076

== ENCOUNTER 2021-04-13 13:15 | Observation (INO) | payer MEDICARE, BC, SELFPAY ==
[2020-09-09 10:25] VITALS: BMI 30.4
[2021-04-13 13:15] VITALS: BP 130/85; PULSE 64; RESP 14; TEMP 36.1; O2SAT 98; BMI 29.2
--- NOTE | 2021-04-13 13:26 | CT_ITS ---
EXAM: CT ABDOMEN AND PELVIS WITHOUT INTRAVENOUS CONTRAST : 1955 CLINICAL INDICATION: flank pain TECHNIQUE: Helically acquired images were obtained of the abdomen and pelvis without intravenous contrast. This CT exam was performed using one or more of the following dose reduction techniques: automated exposure control, adjustment of the mA and/or kV according to patient size, and/or use of iterative reconstruction technique. This report was created using [employer] report generation technology. COMPARISON: 02/02/2020 FINDINGS: LOWER THORAX: Unremarkable. Lung bases are clear. No cardiomegaly. No significant pericardial effusion. ABDOMEN: LIVER: Unremarkable. Homogeneous. GALLBLADDER AND BILE DUCTS: Unremarkable. No calcified gallstones. No gallbladder distention or wall edema. No intra- or extrahepatic biliary ductal dilation. PANCREAS: Unremarkable. No focal cystic mass. SPLEEN: Unremarkable. Normal size without focal cystic or solid mass. ADRENALS: Unremarkable. No nodules. KIDNEYS AND URETERS: There is right-sided hydronephrosis and perinephric inflammation. There is a 4 mm stone at the right UVJ. There is a nonobstructing calyceal stone in the right kidney. Normal renal size and position. STOMACH AND BOWEL: There is sigmoid diverticulosis with no evidence of diverticulitis. No stomach or bowel distention. PELVIS: APPENDIX: No evidence of acute appendicitis. BLADDER: Unremarkable. REPRODUCTIVE: Unremarkable as visualized. No mass. ABDOMEN and PELVIS: INTRAPERITONEAL SPACE: Unremarkable. No ascites or other fluid collection. No free air. BONES/JOINTS: Unremarkable. No suspicious lytic or blastic abnormality. SOFT TISSUES: Unremarkable. No discrete abdominal or pelvic wall hernia. VASCULATURE: Unremarkable. Abdominal aorta is non-dilated. LYMPH NODES: Unremarkable. No enlarged lymph nodes. CT/Abdomen/Pelvis without Cont IMPRESSION: Obstruction of the right collecting system due to a 4 mm stone at the UVJ. There is right-sided hydronephrosis with perinephric inflammation. There is a nonobstructing calyceal stone on the right. Individualized dose optimization techniques were used for this CT. at 1420 Reported and signed by: Niko Coreas MD Electronically Signed: Niko Coreas MD at 14:18 EDT Tel , Service support ,
--- NOTE | 2021-04-13 13:27 | ED.VIS.GI ---
HPI HPI - GI History of Present Illness Chief Complaint: Flank Pain Detail of Chief Complaint: Patient with right-sided flank pain that started this morning around 7 AM. Informant: patient Abdominal Pain/Flank Pain Current Severity: 8/10 Nausea/Vomiting/Emesis GI Symptom: Positive for Nausea and Vomiting Narrative Narrative: Patient presents to the emergency department complaint of right-sided flank pain that started around 7 AM. Patient states that he has had kidney stones multiple times in the past. Patient's been having some intermittent right lower quadrant abdominal discomfort off and on for couple weeks. Currently is complaining of severe pain in his right kidney. Patient's had 2 episodes of vomiting today. Currently rates his pain an 8 out of 10. Denies any blood in his urine however he did take an [id number] Pyridium this morning. He denies fevers. Patient denies chills or sweats. Patient denies any blood in stool or black tarry stool. Prior similar symptoms: Yes PFSH PFSH Medical History (Updated 04/13/21 @ 15:[address] Liat Wray, DO) Atherosclerotic heart disease of [place] coronary artery without angina pectoris BPH (benign prostatic hyperplasia) CAD (coronary artery disease) Diverticulitis Essential hypertension GERD (gastroesophageal reflux disease) Mild mitral regurgitation Mild pulmonary hypertension Mild tricuspid regurgitation Mitral valve prolapse Non-rheumatic mitral regurgitation Nonrheumatic mitral (valve) prolapse Nonrheumatic tricuspid valve regurgitation LINDA on CPAP Pure hypercholesterolemia Home Medications aspirin 81 mg PO DAILY@0800 05/26/17 [History Last Taken Unknown] fluticasone propionate 50 mcg/actuation nasal spray,suspension 50 mcg INTRANASAL BID PRN 10/13/17 [History Last Taken Unknown] lisinopril 5 mg tablet 5 mg PO DAILY #90 tab 09/23/20 [Rx Last Taken Unknown] pravastatin 40 mg tablet 40 mg PO QHS #90 tab 02/06/21 [Rx Last Taken Unknown] Allergy/AdvReac Type Severity Reaction Status Date / Time No Known Allergies Allergy Verified 04/13/21 13:18 Family History Father , age 70, multiple [place] Myocardial infarction Cancer CAD (coronary artery disease) Mother CHF (congestive heart failure) Hypertension Brother Myocardial infarction, Onset Age: 44 Heart disease Grandfather CVA (cerebral vascular accident) Sister Cancer Bone CA Uncle Diabetes Surgical History History of bilateral cataract extraction History of right inguinal hernia repair History of umbilical hernia repair Social History (Updated 09/09/20 @ 10:[address] Chuckie Keen MD) Smoking Status: Never smoker alcohol intake: never substance use type: does not use caffeine: Yes Type: carbonated beverages and coffee what type of physical activity do you participate in: other details: tredmill frequency: 1-2 times per week duration: 15-30 minutes/day seatbelt use: sometimes do you feel safe at home: Yes ROS ROS ED Constitutional Constitutional ED: Reports systems reviewed and no addt'l complaints, except as documented; Denies body ache(s), change in weight or chills Eyes Eyes: Denies acute decrease in peripheral vision, change in vision, double vision or loss of vision ENT ENT ED: Reports none; Denies ear pain, lip swelling, loss taste/smell, neck pain, otalgia or sore throat Cardiovascular Cardiovascular: Reports none; Denies abdominal pain, chest pain with activity, leg edema, lightheadedness, palpitations, rapid heart rate or syncope Respiratory/Chest Respiratory/Chest: Reports none; Denies change in mental status, dry cough, dyspnea, hemoptysis, shortness of breath at rest or shortness of breath with exertion Gastrointestinal Gastrointestinal: Reports none, nausea and vomiting; Denies abdominal pain, change in stool character, diarrhea, hematemesis, hematochezia, melena or rectal bleeding Genitourinary Genitourinary ED: Reports none; Denies abdominal discomfort, anuria, dysuria, genital pain or polyuria Musculoskeletal Musculoskeletal: Reports none and back pain; Denies arthralgias, difficulty walking, extremity pain, muscle weakness or myalgias Integumentary Reports none; Denies abscess or rash Neurologic Neurologic: Reports none; Denies abnormal gait, confusion, focal weakness, frequent falls, headache(s), loss of vision, numbness, paresthesias, radicular pain, vertigo or weakness Psychiatric Psychiatric: Reports systems reviewed and no addt'l complaints, except as documented and none; Denies behavioral changes, confusion, difficulty concentrating, hallucinations, suicidal ideation, tactile hallucinations or visual hallucinations Endocrine Endocrinology: Denies none, cold intolerance, excessive sweating, fatigue or heat intolerance Hematologic/Lymphatic Hematologic/Lymphatic: Reports none; Denies anemia, easy bleeding or easy bruising Allergic/Immunologic Allergic/Immunologic ED: Denies as per HPI, none, lip swelling, mouth swelling, throat swelling, tongue swelling or hives EXAM Physical Exam Const Vital Signs: 04/13/21 13:15 04/13/21 14:49 Temperature 97.0 F L Temperature Source Temporal Pulse Rate 64 77 Respiratory Rate 14 18 Blood Pressure 130/85 H 146/78 H Blood Pressure Mean 100 100 Pulse Ox 98 96 Oxygen Delivery Method Room Air Room Air Positive well nourished and well developed General Appearance ED: well developed and NAD HEENT Reports TM's clear and moist mucous membranes normocephalic and atraumatic; Negative for trauma or tenderness Tympanic Membrane ED: Yes TM's clear Eyes PERRL and EOMs intact bilaterally General Eye ED: Negative for pale conjunctiva or scleral icterus Neck no lymphadenopathy, supple and no JVD General: Negative for tenderness Chest Wall inspection of chest normal and palpation of chest normal Chest: Negative for tenderness Resp normal respiratory effort and clear to auscultation bilaterally Effort and Inspection: Negative for respiratory distress or pain with movement Auscultation: Negative for rhonchi, wheezes or diminished lung sounds Cardio regular rate, regular rhythm, S1 normal heart sound, S2 normal heart sound and no murmurs Peripheral Pulses: pulses 2+ throughout GI normal to inspection, nondistended, normoactive bowel sounds, soft to palpation, non-tender, non-distended and no masses Back/Spine no CVA tenderness and no thoracic nor lumbar tenderness Extremity normal to inspection General Extremety ED: Negative for edema General Extremity: Negative for edema Neuro oriented x3, CN's II-XII intact bilaterally, no sensory deficits noted and gait normal Sensorium / Orientation: awake, alert, oriented to person, oriented to place and oriented to time Motor Exam: strength 5/5 throughout and strength abnormal Psych mental status grossly normal Skin no rashes or lesions noted and no wounds MDM MDM MDM Narrative Medical decision making narrative: Initially patient had good pain relief with morphine, Zofran, and Toradol. His pain returned and had to be remedicated. Patient has a 4 mm stone at the right UVJ with hydronephrosis and hydroureter. Case discussed with patient's urologist and also with the hospitalist will evaluate patient for admission. Lab Data Attestation: I reviewed the patient's lab results. Labs: Laboratory Results - last 24 hr 04/13/21 04/13/21 04/13/21 13:25 13:25 14:00 WBC 14.4 H RBC 4.53 L Hgb 14.0 Hct 42.2 MCV 93.2 MCH 30.9 MCHC 33.2 RDW Std Deviation 45.0 H RDW Coeff of Linnea 13.2 Plt Count 260 MPV 9.4 Immature Gran % (Auto) 0.600 Neut % (Auto) 84.5 H Lymph % (Auto) 9.9 L [place] % (Auto) 4.6 Eos % (Auto) 0.1 Baso % (Auto) 0.3 Absolute Neuts (auto) 12.2 H Absolute Lymphs (auto) 1.42 Nucleated RBC % 0 Sodium 138 Potassium 4.3 Chloride 105 Carbon Dioxide 25.0 Anion Gap 8 BUN 11 Creatinine 1.26 Estim Creat Clear Calc 57.67 Est GFR (MDRD) Af Amer 74 Est GFR (MDRD) Non-Af 61 BUN/Creatinine Ratio 8.7 L Glucose 117 H Calcium 9.1 Urine Color SEE COMMENT BELOW Urine Clarity Sl. Cloudy Urine pH 7.0 Ur Specific [place] 1.010 Urine Protein 15 H Urine Glucose (UA) Normal Urine Ketones 5 H Urine Occult Blood Negative Urine Nitrite Positive H Urine Bilirubin 3 H Urine Urobilinogen 4 H Ur Leukocyte Esterase 25 H Urine RBC 0 SEEN Urine WBC 0 SEEN Ur Squamous Epith Cells 0 SEEN Amorphous Sediment 2+ Urine Bacteria 2+ Urine Mucus 0 SEEN Radiography Diagnostic Testing: Radiology Impression Abdomen/Pelvis CT 04/13/21 13:26 IMPRESSION: Obstruction of the right collecting system due to a 4 mm stone at the UVJ. There is right-sided hydronephrosis with perinephric inflammation. There is a nonobstructing calyceal stone on the right. Individualized dose optimization techniques were used for this CT. at 1420 Reported and signed by: Niko Coreas MD Electronically Signed: Niko Coreas MD at 14:18 EDT Tel , Service support , Discharge Plan Triage Chief Complaint: Flank Pain ED Provider: Liat Wray Dx/Rx/DC Orders Clinical Impression: Kidney stone, Intractable pain Prescriptions: No Action fluticasone propionate [Flonase Allergy Relief] 50 mcg/actuation spray,suspension 50 mcg INTRANASAL BID PRN (Reason: Allergies) RF: 0 aspirin 81 MG tablet,chewable 81 mg PO DAILY@0800 RF: 0 lisinopril 5 mg tablet 5 mg PO DAILY Qty: 90 RF: 3 pravastatin 40 mg tablet 40 mg PO QHS Qty: 90 RF: 3 Primary Care Provider: Althea Flores NP Referrals: Althea Flores NP, DIRECTOR OF MANUFA[employer]URING-[employer] [Primary Care Provider] - Disposition Disposition: Acute Care Hospital [facility]
[2021-04-13] MEDS: Ketorolac 15 MG/ML Vial IV (13:30)
[2021-04-13] MEDS: Morphine 4 MG/ML Syringe IV ×2 (13:30→14:48)
[2021-04-13] MEDS: Ondansetron 4 MG/2 ML Vial IV ×2 (13:30→23:39)
[2021-04-13 13:32] LABS: Absolute Lymphocyte Count 1.42 X10^3/uL (0.83-4.51); Absolute Neutrophil Count 12.2 X10^3/uL (2.0-7.7); Basophil# 0.04 X10^3/uL; Basophil% 0.3 % (0-1); Eosinophil# 0.01 X10^3/uL; Eosinophils% 0.1 % (0-5); Hematocrit 42.2 % (40-54); Lymphocyte # 1.42 X10^3/ul (0.83-4.51); Lymphocyte % 9.9 % (19-41); Mean Corp Hgb Conc 33.2 g/dL (32-36); Mean Corpuscular Hgb 30.9 pg (27.0-32.0); Mean Corpuscular Volume 93.2 fL (80-94); Mean Platelet Vol. 9.4 fl (6.2-12.0); Monocyte# 0.66 X10^3/uL; Monocyte% 4.6 % (0-10); NRBC Flagged by Analyzer 0 % (0-5); Neutrophil % 84.5 % (47-70); Platelet Count 260 K/mm3 (150-450); RBC Distribution Width CV 13.2 % (11.6-14.6); Red Blood Count 4.53 M/mm3 (4.6-6.2); White Blood Count 14.4 K/mm3 (4.4-11.0)
[2021-04-13 13:44] LABS: Anion Gap 8 (5-15); BUN 11 mg/dL (7-18); BUN/Creat Ratio 8.7 RATIO (10-20); Calcium,Total 9.1 mg/dL (8.5-10.1); Chloride 105 mmol/L (98-107); Creatinine, Serum 1.26 mg/dL (0.70-1.30); EST Glomerular Filtration Rate 61 mL/min (>60); Est Glom Filt Rate - Afr Amer 74 mL/min (>60); Estimated Creatinine Clearance 57.67 ml/min; Glucose 117 mg/dL (74-106); Potassium 4.3 mmol/L (3.5-5.1); Sodium Level 138 mmol/L (136-145)
[2021-04-13] MEDS: 0.9% Normal Saline 1,000 ML 125 ML IV (13:49)
[2021-04-13 14:04] LABS: Mucous, Urine 0 SEEN /hpf (<or=2+); Red Blood Cells-Urine 0 SEEN /hpf (0-5); Squamous Epithelial Cells - UA 0 SEEN /hpf (0-5); White Blood Cells 0 SEEN /hpf (0-5)
[2021-04-13 14:05] LABS: Glucose, Dipstick Normal (Normal); Ketone-Dipstick 5 mg/dl (Negative); Leukocyte Esterase-Dipstick 25 /ul (Negative); Nitrite-Dipstick Positive (Negative); Occult Blood-Urine Negative /ul (Negative); Protein-Dipstick 15 mg/dl (Negative); Urine Clarity Sl. Cloudy (Clear); Urine Urobilinogen 4 mg/dl (Normal)
[2021-04-13 14:17] LABS: Color, Urine SEE COMMENT BELOW (Yellow); Urine Bilirubin Dipstick 3 mg/dL (Negative)
[2021-04-13 14:18] LABS: Amorphous Sediment 2+; Bacteria 2+ /hpf (None Seen)
[2021-04-13 14:49] VITALS: BP 146/78; PULSE 77; RESP 18; O2SAT 96
--- NOTE | 2021-04-13 15:20 | PCM.HP.STD ---
HPI - General General Date of Admission: 04/13/21 Date of Service: 04/13/21 Chief Complaint: abdominal pain HPI Narrative DORY DALTON, is a 65 M who presents right-sided abdominal pain. Started at around 730. Was very intense and sharp. Presented to the emergency room and had imaging. CT of the abdomen pelvis showed obstruction of the right collecting system due to 4 mm stone at UVJ. Right-sided hydronephrosis with perinephric inflammation. Also showed a nonobstructing calcaneal stone on the right. 6 years ago, patient did have a kidney stone but that was left-sided. The emergency room physician spoke to Dr. Vu who said he was see the patient in consultation on the . I too spoke with Dr. Vu and he said that he would see the patient in the hospital. And that he would be available in the hospital least for this patient for the next 2 days. [facility] Medical History (Updated 04/13/21 @ 15:[address] Ferd Iyer DO) Atherosclerotic heart disease of [place] coronary artery without angina pectoris BPH (benign prostatic hyperplasia) CAD (coronary artery disease) Diverticulitis Essential hypertension GERD (gastroesophageal reflux disease) Mild mitral regurgitation Mild pulmonary hypertension Mild tricuspid regurgitation Mitral valve prolapse Non-rheumatic mitral regurgitation Nonrheumatic mitral (valve) prolapse Nonrheumatic tricuspid valve regurgitation LINDA on CPAP Pure hypercholesterolemia Home Medications aspirin 81 mg PO DAILY@0800 05/26/17 [History Last Taken Unknown] fluticasone propionate 50 mcg/actuation nasal spray,suspension 50 mcg INTRANASAL BID PRN 10/13/17 [History Last Taken Unknown] lisinopril 5 mg tablet 5 mg PO DAILY #90 tab 09/23/20 [Rx Last Taken Unknown] pravastatin 40 mg tablet 40 mg PO QHS #90 tab 02/06/21 [Rx Last Taken Unknown] Allergy/AdvReac Type Severity Reaction Status Date / Time No Known Allergies Allergy Verified 04/13/21 13:18 Family History Father , age 70, multiple [place] Myocardial infarction Cancer CAD (coronary artery disease) Mother CHF (congestive heart failure) Hypertension Brother Myocardial infarction, Onset Age: 44 Heart disease Grandfather CVA (cerebral vascular accident) Sister Cancer Bone CA Uncle Diabetes Surgical History History of bilateral cataract extraction History of right inguinal hernia repair History of umbilical hernia repair Social History Smoking Status: Never smoker alcohol intake: never substance use type: does not use caffeine: Yes Type: carbonated beverages and coffee what type of physical activity do you participate in: other details: tredmill frequency: 1-2 times per week duration: 15-30 minutes/day seatbelt use: sometimes do you feel safe at home: Yes ROS ROS Narrative All review of systems were negative except as mentioned above in the history of present illness and the other review of systems. Constitutional Constitutional: Reports chills Respiratory/Chest Respiratory/Chest: Denies cough or dyspnea Gastrointestinal Gastrointestinal: Reports abdominal pain Genitourinary Genitourinary: Reports other Details: No hematuria ; Denies burning urination Musculoskeletal Musculoskeletal: Reports other Details: Chronic pain in both shoulders Vital Signs Vital Signs Vital Signs: 04/13/21 13:15 04/13/21 14:49 Temperature 36.1 C L Temperature Source Temporal Pulse Rate 64 77 Respiratory Rate 14 18 Blood Pressure 130/85 H 146/78 H Blood Pressure Mean 100 100 Pulse Ox 98 96 Oxygen Delivery Method Room Air Room Air Weight Weight: 90 kg Body Mass Index (BMI) 29.2 Physical Exam Const alert and oriented x3 Constitutional Narrative: Uncomfortable General Appearance: cooperative HEENT normocephalic and head/scalp atraumatic Eyes PERRL Resp normal respiratory effort, no retractions, no use of accessory muscles and clear to auscultation bilaterally Cardio regular rate, regular rhythm, S1 normal heart sound and S2 normal heart sound GI normal to inspection, nondistended, normoactive bowel sounds, soft to palpation, non-tender and non-distended Extremity normal to inspection Skin no rashes or lesions noted Neuro Sensorium / Orientation: awake and alert Psych affect normal Results Lab / Micro Data Attestation: I reviewed the patient's lab results. Result Diagrams: 04/13/21 13:25 04/13/21 13:25 Labs: Laboratory Results - last 24 hr 04/13/21 04/13/21 04/13/21 13:25 13:25 14:00 WBC 14.4 H RBC 4.53 L Hgb 14.0 Hct 42.2 MCV 93.2 MCH 30.9 MCHC 33.2 RDW Std Deviation 45.0 H RDW Coeff of Linnea 13.2 Plt Count 260 MPV 9.4 Immature Gran % (Auto) 0.600 Neut % (Auto) 84.5 H Lymph % (Auto) 9.9 L [place] % (Auto) 4.6 Eos % (Auto) 0.1 Baso % (Auto) 0.3 Absolute Neuts (auto) 12.2 H Absolute Lymphs (auto) 1.42 Nucleated RBC % 0 Sodium 138 Potassium 4.3 Chloride 105 Carbon Dioxide 25.0 Anion Gap 8 BUN 11 Creatinine 1.26 Estim Creat Clear Calc 57.67 Est GFR (MDRD) Af Amer 74 Est GFR (MDRD) Non-Af 61 BUN/Creatinine Ratio 8.7 L Glucose 117 H Calcium 9.1 Urine Color SEE COMMENT BELOW Urine Clarity Sl. Cloudy Urine pH 7.0 Ur Specific [place] 1.010 Urine Protein 15 H Urine Glucose (UA) Normal Urine Ketones 5 H Urine Occult Blood Negative Urine Nitrite Positive H Urine Bilirubin 3 H Urine Urobilinogen 4 H Ur Leukocyte Esterase 25 H Urine RBC 0 SEEN Urine WBC 0 SEEN Ur Squamous Epith Cells 0 SEEN Amorphous Sediment 2+ Urine Bacteria 2+ Urine Mucus 0 SEEN Radiology Impression Abdomen/Pelvis CT 04/13/21 13:26 IMPRESSION: Obstruction of the right collecting system due to a 4 mm stone at the UVJ. There is right-sided hydronephrosis with perinephric inflammation. There is a nonobstructing calyceal stone on the right. Individualized dose optimization techniques were used for this CT. at 1420 Reported and signed by: Niko Coreas MD Electronically Signed: Niko Coreas MD at 14:18 EDT Tel , Service support , Assessment & Plan Assessment/Plan (1) Hydronephrosis: QUALIFIERS: Hydronephrosis type: with renal calculous obstruction Qualified Code(s): N13.2 - Hydronephrosis with renal and ureteral calculous obstruction (2) Calculus of ureterovesical junction (UVJ): (3) Leukocytosis: QUALIFIERS: Leukocytosis type: other Qualified Code(s): D72.828 - Other elevated white blood cell count PLAN: 1. ureterovesicular junction stone causing obstruction and hydronephrosis 4 mm on CAT scan Plan: Continue with IV fluids, pain control, start tamsulosin. Consult urology in case intervention is required. I did discuss the case with Dr. Vu, who said he would see the patient in the hospital the . He agreed with the current method of treatment. Clinically I do not feel the patient has pyelonephritis and will not treat him as such at least at this time. 2. Right-sided hydronephrosis Secondary to above Anticipate resolution after the stone has been removed 3. Leukocytosis Likely reactive given above Monitor 4. VTE prophylaxis: Low risk given current observation anticipated short-term stay. Discussed with family at bedside Charges/Coding Visit Charges OBSV E&M: 27729 Initial observation care L3
[2021-04-13 15:29] VITALS: BP 141/83; PULSE 77; RESP 16; TEMP 36.7; O2SAT 98
[2021-04-13 15:51] VITALS: PULSE 74; O2SAT 100; BMI 29.7
[2021-04-13 15:55] VITALS: BP 153/83; PULSE 74; RESP 20; TEMP 36.5; O2SAT 100
[2021-04-13] MEDS: oxyCODONE 5 MG Tablet PO ×2 (17:28→23:36)
[2021-04-13] MEDS: 0.9% Normal Saline 1,000 ML 150 ML IV (18:34)
[2021-04-13 20:14] VITALS: BP 126/69; PULSE 69; RESP 18; TEMP 36.4; O2SAT 97
[2021-04-13] MEDS: Pravastatin 40 MG Tablet PO (21:39)
[2021-04-14] VITALS (9 sets, daily range): BP systolic 118–136; BP diastolic 62–73; PULSE 63–84; RESP 16–18; TEMP 36.4–37.1; O2SAT 92–99; BMI 29.7
[2021-04-14] MEDS: 0.9% Normal Saline 1,000 ML 150 ML IV ×3 (01:16→14:58)
[2021-04-14] MEDS: Morphine 4 MG/ML Syringe IV ×2 (01:25→08:17)
[2021-04-14] MEDS: oxyCODONE 5 MG Tablet PO (03:59)
[2021-04-14 05:43] LABS: Absolute Lymphocyte Count 1.69 X10^3/uL (0.83-4.51); Absolute Neutrophil Count 7.7 X10^3/uL (2.0-7.7); Basophil# 0.03 X10^3/uL; Basophil% 0.3 % (0-1); Hematocrit 40.3 % (40-54); Hemoglobin 13.3 g/dL (13.0-16.5); Lymphocyte # 1.69 X10^3/ul (0.83-4.51); Lymphocyte % 16.5 % (19-41); Mean Corpuscular Hgb 31.2 pg (27.0-32.0); Mean Corpuscular Volume 94.6 fL (80-94); Mean Platelet Vol. 9.3 fl (6.2-12.0); Monocyte# 0.71 X10^3/uL; Monocyte% 6.9 % (0-10); NRBC Flagged by Analyzer 0 % (0-5); Neutrophil # 7.66 X10^3/uL (2.7-7.7); Neutrophil % 74.8 % (47-70); Platelet Count 226 K/mm3 (150-450); RBC Distribution Width CV 13.4 % (11.6-14.6); RBC Distribution Width SD 46.9 fl (35.1-43.9); Red Blood Count 4.26 M/mm3 (4.6-6.2); White Blood Count 10.2 K/mm3 (4.4-11.0)
--- NOTE | 2021-04-14 06:00 | EKG12_ITS ---
Test Reason : PREOP Blood Pressure : / mmHG Vent. Rate : 071 BPM Atrial Rate : 071 BPM P-R Int : 180 ms QRS Dur : 098 ms QT Int : 410 ms P-R-T Axes : 044 028 025 degrees QTc Int : 445 ms Normal sinus rhythm Normal ECG When compared with ECG of 03-APR-2020 16:45, No significant change was found Confirmed by PORTIA VALDIVIA, JOSÉ MIGUEL ([id number]), graphics editor EDD AVILA ([id number]) on 04/15/2021 8:53:36 AM Referred By: IMELDA Confirmed By:JOSÉ MIGUEL PEARCE MD
[2021-04-14 06:09] LABS: Anion Gap 5 (5-15); BUN 12 mg/dL (7-18); BUN/Creat Ratio 7.9 RATIO (10-20); Calcium,Total 8.4 mg/dL (8.5-10.1); Chloride 111 mmol/L (98-107); Creatinine, Serum 1.52 mg/dL (0.70-1.30); EST Glomerular Filtration Rate 49 mL/min (>60); Est Glom Filt Rate - Afr Amer 59 mL/min (>60); Estimated Creatinine Clearance 47.81 ml/min; Glucose 104 mg/dL (74-106); Potassium 4.3 mmol/L (3.5-5.1); Sodium Level 141 mmol/L (136-145)
--- NOTE | 2021-04-14 07:23 | CON.PCM.UR_ITS ---
Assessment & Plan Assessment/Plan (1) Calculus of ureterovesical junction (UVJ): PLAN: once pain controoled and tolerating diet can be didcharged, tiny dustal stone will very likly pass, not planning any intervention surgically HPI Consult Data Date of Consult: 04/14/21 HPI Narrative HPI Narrative: DORY DALTON, is a 65 M who presents admitted to hospitalist with tiny stone very likely to pass PFSH Medical History Atherosclerotic heart disease of [place] coronary artery without angina pectoris BPH (benign prostatic hyperplasia) CAD (coronary artery disease) Cancer Diverticulitis Essential hypertension Flank hernia GERD (gastroesophageal reflux disease) History of stress test Injury of head and neck Kidney stones Mild mitral regurgitation Mild pulmonary hypertension Mild tricuspid regurgitation Mitral valve prolapse Non-rheumatic mitral regurgitation Nonrheumatic mitral (valve) prolapse Nonrheumatic tricuspid valve regurgitation LINDA on CPAP Pure hypercholesterolemia Home Medications aspirin 81 mg PO DAILY@0800 05/26/17 [History Last Taken 04/12/21] fluticasone propionate 50 mcg/actuation nasal spray,suspension 50 mcg INTRANASAL BID PRN 10/13/17 [History Last Taken Unknown] lisinopril 5 mg tablet 5 mg PO DAILY #90 tab 09/23/20 [Rx Last Taken 04/12/21] pravastatin 40 mg tablet 40 mg PO QHS #90 tab 02/06/21 [Rx Last Taken 04/12/21] omega-3 fatty acids [Fish Oil] 1,000 mg PO DAILY 04/13/21 [History Last Taken Unknown] Allergy/AdvReac Type Severity Reaction Status Date / Time No Known Allergies Allergy Verified 04/13/21 13:18 Family History Father , age 70, multiple [place] Myocardial infarction Cancer CAD (coronary artery disease) Mother CHF (congestive heart failure) Hypertension Brother Myocardial infarction, Onset Age: 44 Heart disease Grandfather CVA (cerebral vascular accident) Sister Cancer Bone CA Uncle Diabetes Surgical History History of bilateral cataract extraction History of right inguinal hernia repair History of umbilical hernia repair Social History Smoking Status: Never smoker alcohol intake: never substance use type: does not use caffeine: Yes Type: carbonated beverages and coffee what type of physical activity do you participate in: other details: tredmill frequency: 1-2 times per week duration: 15-30 minutes/day seatbelt use: sometimes do you feel safe at home: Yes ROS Constitutional Constitutional: Denies chills, fever(s) or malaise Eyes Eyes: Denies blurry vision or change in vision ENT HEENT: Reports none Cardiovascular Cardiovascular: Denies chest pain or palpitations Respiratory/Chest Respiratory/Chest: Denies cough or shortness of breath with exertion Gastrointestinal Gastrointestinal: Denies abdominal pain, constipation or diarrhea Musculoskeletal Musculoskeletal: Denies back pain, joint stiffness or joint swelling Integumentary Integumentary: Denies dry skin, jaundice, lesions or rash Neurologic Neurologic: Denies confusion, syncope or weakness Psychiatric Psychiatric: Reports none; Denies anxiety or depression Endocrine Endocrinology: Denies excessive sweating, fatigue or flushing Hematologic/Lymphatic Hematologic/Lymphatic: Denies anemia, easy bleeding or easy bruising Lab / Micro Data Result Diagrams: 04/14/21 05:26 04/14/21 05:26 Labs: Laboratory Results - last 24 hr 04/13/21 13:25: WBC 14.4 H, RBC 4.53 L, Hgb 14.0, Hct 42.2, MCV 93.2, MCH 30.9, MCHC 33.2, RDW Std Deviation 45.0 H, RDW Coeff of Linnea 13.2, Plt Count 260, MPV 9.4, Immature Gran % (Auto) 0.600, Neut % (Auto) 84.5 H, Lymph % (Auto) 9.9 L, [place] % (Auto) 4.6, Eos % (Auto) 0.1, Baso % (Auto) 0.3, Absolute Neuts (auto) 12.2 H, Absolute Lymphs (auto) 1.42, Nucleated RBC % 0 04/13/21 13:25: Sodium 138, Potassium 4.3, Chloride 105, Carbon Dioxide 25.0, Anion Gap 8, BUN 11, Creatinine 1.26, Estim Creat Clear Calc 57.67, Est GFR (MDRD) Af Amer 74, Est GFR (MDRD) Non-Af 61, BUN/Creatinine Ratio 8.7 L, Glucose 117 H, Calcium 9.1 04/13/21 14:00: Urine Color SEE COMMENT BELOW, Urine Clarity Sl. Cloudy, Urine pH 7.0, Ur Specific [place] 1.010, Urine Protein 15 H, Urine Glucose (UA) No rmal, Urine Ketones 5 H, Urine Occult Blood Negative, Urine Nitrite Positive H, Urine Bilirubin 3 H, Urine Urobilinogen 4 H, Ur Leukocyte Esterase 25 H, Urine RBC 0 SEEN, Urine WBC 0 SEEN, Ur Squamous Epith Cells 0 SEEN, Amorphous Sediment 2+, Urine Bacteria 2+, Urine Mucus 0 SEEN 04/14/21 05:26: WBC 10.2, RBC 4.26 L, Hgb 13.3, Hct 40.3, MCV 94.6 H, MCH 31.2, MCHC 33.0, RDW Std Deviation 46.9 H, RDW Coeff of Linnea 13.4, Plt Count 226, MPV 9.3, Immature Gran % (Auto) 0.500, Neut % (Auto) 74.8 H, Lymph % (Auto) 16.5 L, [place] % (Auto) 6.9, Eos % (Auto) 1.0, Baso % (Auto) 0.3, Absolute Neuts (auto) 7.7, Absolute Lymphs (auto) 1.69, Nucleated RBC % 0 04/14/21 05:26: Sodium 141, Potassium 4.3, Chloride 111 H, Carbon Dioxide 25.0, Anion Gap 5, BUN 12, Creatinine 1.52 H, Estim Creat Clear Calc 47.81, Est GFR (MDRD) Af Amer 59 L, Est GFR (MDRD) Non-Af 49 L, BUN/Creatinine Ratio 7.9 L, Glucose 104, Calcium 8.4 L Radiology Impression Abdomen/Pelvis CT 04/13/21 13:26 IMPRESSION: Obstruction of the right collecting system due to a 4 mm stone at the UVJ. There is right-sided hydronephrosis with perinephric inflammation. There is a nonobstructing calyceal stone on the right. Individualized dose optimization techniques were used for this CT. at 1420 Reported and signed by: Niko Coreas MD Electronically Signed: Niko Coreas MD at 14:18 EDT Tel , Service support ,
--- NOTE | 2021-04-14 09:24 | PCM.PN.HOSP ---
Subjective Subjective Patient is a 65-year-old gentleman who presented with right flank pain imaging studies demonstrated uterovesical junction stone causing obstruction and hydronephrosis Objective Data Objective Data Vital Signs: Vital Signs Temp Pulse Resp BP Pulse Ox 97.9 F 67 16 134/66 H 97 04/14/21 08:02 04/14/21 08:02 04/14/21 08:02 04/14/21 08:02 04/14/21 08:02 Oxygen Delivery Method Room Air Weight: 91.4 kg Body Mass Index (BMI) 29.7 Intake & Output: Intake and Output for Last 24 Hours 04/12/21 04/13/21 04/14/21 23:59 23:59 23:59 Intake Total 1073.75 / 1073.75 2600 / 2600 Output Total 600 / 600 Balance 1073.75 / 1073.75 1999 / 1999 Lab / Micro Data Result Diagrams: 04/14/21 05:26 04/14/21 05:26 Labs: Laboratory Results - last 24 hr 04/13/21 13:25: WBC 14.4 H, RBC 4.53 L, Hgb 14.0, Hct 42.2, MCV 93.2, MCH 30.9, MCHC 33.2, RDW Std Deviation 45.0 H, RDW Coeff of Linnea 13.2, Plt Count 260, MPV 9.4, Immature Gran % (Auto) 0.600, Neut % (Auto) 84.5 H, Lymph % (Auto) 9.9 L, [place] % (Auto) 4.6, Eos % (Auto) 0.1, Baso % (Auto) 0.3, Absolute Neuts (auto) 12.2 H, Absolute Lymphs (auto) 1.42, Nucleated RBC % 0 04/13/21 13:25: Sodium 138, Potassium 4.3, Chloride 105, Carbon Dioxide 25.0, Anion Gap 8, BUN 11, Creatinine 1.26, Estim Creat Clear Calc 57.67, Est GFR (MDRD) Af Amer 74, Est GFR (MDRD) Non-Af 61, BUN/Creatinine Ratio 8.7 L, Glucose 117 H, Calcium 9.1 04/13/21 14:00: Urine Color SEE COMMENT BELOW, Urine Clarity Sl. Cloudy, Urine pH 7.0, Ur Specific [place] 1.010, Urine Protein 15 H, Urine Glucose (UA) Normal, Urine Ketones 5 H, Urine Occult Blood Negative, Urine Nitrite Positive H, Urine Bilirubin 3 H, Urine Urobilinogen 4 H, Ur Leukocyte Esterase 25 H, Urine RBC 0 SEEN, Urine WBC 0 SEEN, Ur Squamous Epith Cells 0 SEEN, Amorphous Sediment 2+, Urine Bacteria 2+, Urine Mucus 0 SEEN 04/14/21 05:26: WBC 10.2, RBC 4.26 L, Hgb 13.3, Hct 40.3, MCV 94.6 H, MCH 31.2, MCHC 33.0, RDW Std Deviation 46.9 H, RDW Coeff of Linnea 13.4, Plt Count 226, MPV 9.3, Immature Gran % (Auto) 0.500, Neut % (Auto) 74.8 H, Lymph % (Auto) 16.5 L, [place] % (Auto) 6.9, Eos % (Auto) 1.0, Baso % (Auto) 0.3, Absolute Neuts (auto) 7.7, Absolute Lymphs (auto) 1.69, Nucleated RBC % 0 04/14/21 05:26: Sodium 141, Potassium 4.3, Chloride 111 H, Carbon Dioxide 25.0, Anion Gap 5, BUN 12, Creatinine 1.52 H, Estim Creat Clear Calc 47.81, Est GFR (MDRD) Af Amer 59 L, Est GFR (MDRD) Non-Af 49 L, BUN/Creatinine Ratio 7.9 L, Glucose 104, Calcium 8.4 L Radiography Diagnostic Testing: Radiology Impression Abdomen/Pelvis CT 04/13/21 13:26 IMPRESSION: Obstruction of the right collecting system due to a 4 mm stone at the UVJ. There is right-sided hydronephrosis with perinephric inflammation. There is a nonobstructing calyceal stone on the right. Individualized dose optimization techniques were used for this CT. at 1420 Reported and signed by: Niko Coreas MD Electronically Signed: Niko Coreas MD at 14:18 EDT Tel , Service support , Physical Exam Narrative GENERAL: Appears to be in some discomfort HEENT: Atraumatic; EYES; Anicteric, Normal Conjunctiva NECK; supple, normal thyroid, RESPIRATORY: Diminished to auscultation CARDIOVASCULAR: Regular S1 S2, GI: soft, normoactive bowel sounds, : No Renal angle tenderness; EXTREMITIES: No edema, no clubbing, MUSCULOSKELETAL: no muscle waisting NEURO: Awake; no lateralizing signs. SKIN: No Rash PSYCH; Flat affect Assessment & Plan Assessment/Plan (1) Hydronephrosis: QUALIFIERS: Hydronephrosis type: with renal calculous obstruction Qualified Code(s): N13.2 - Hydronephrosis with renal and ureteral calculous obstruction (2) Calculus of ureterovesical junction (UVJ): (3) Leukocytosis: QUALIFIERS: Leukocytosis type: other Qualified Code(s): D72.828 - Other elevated white blood cell count PLAN: Patient is a 65-year-old gentleman who presented with right flank pain imaging studies demonstrated uterovesical junction stone causing obstruction and hydronephrosis 1. Renal colic ?Secondary to . ureterovesicular junction stone causing obstruction and hydronephrosis 4 mm on CAT scan. Admitted to regular nursing floor being managed symptomatically with pain meds IV fluids and antinausea medications. Consult placed to Dr. Phelps with urology 2. Leukocytosis Likely reactive trending down 3. DVT prophylaxis ?Deemed to be low risk; early ambulation encouraged Charges/Coding Visit Charges OBSV E&M: 44853 Subsequent observation care L2
[2021-04-14] MEDS: Ketorolac 15 MG/ML Vial IV (10:18)
[2021-04-14] MEDS: Lactated Ringers 1,000 ML 100 ML IV (10:55)
[2021-04-14 11:17] LABS: Troponin-I HS 4.2 pg/mL (3.0-78.5)
[2021-04-14] MEDS: Cefazolin 1 GM/50 ML BAG IV (11:28)
--- NOTE | 2021-04-14 11:29 | PCM.DC ---
Discharge Instructions Diet Discharge Diet: No restrictions Activity Discharge Activity: Return to Normal Activity and May Not Drive (while taking narcotic pain medications.) Dressing / Incision Call your doctor if you observe: Fever of 101 or Higher Follow Up Care Please Follow Up With: Tj Vu MD When: Call [phone] for an appointment Test Results: Test results from this visit will be discussed in further detail at your follow-up appointment, if applicable. Discharge Plan Admission Admit Date/Time: 04/13/21 15:19 Primary Reason for Your Visit: Ureteral stone Attending Provider: Sumeet Manuel Primary Care Provider: Althea Flores NP Discharge Orders/Prescriptions Prescriptions: Continued fluticasone propionate [Flonase Allergy Relief] 50 mcg/actuation spray,suspension 50 mcg INTRANASAL BID PRN (Reason: Allergies) RF: 0 aspirin 81 MG tablet,chewable 81 mg PO DAILY@0800 RF: 0 lisinopril 5 mg tablet 5 mg PO DAILY Qty: 90 RF: 3 pravastatin 40 mg tablet 40 mg PO QHS Qty: 90 RF: 3 No Action Fish Oil Capsule 1,000 mg PO DAILY RF: 0 Referrals / Follow Up: Tj Vu MD [STAFF PHYSICIAN] - Within 2 Weeks Althea Flores NP, WELDING MACHINE OPERATOR [employer] [Primary Care Provider] -
--- NOTE | 2021-04-14 11:29 | PCM.OPRPT ---
Report of Operation Date of Procedure: 04/14/21 Pre-Operative Diagnosis: Right distal ureteral calculi Post-Operative Diagnosis: Same Surgery/Procedure Performed:: Cystoscopy, balloon dilation of the ureter, ureteroscopy basket extraction of stone and right stent placement Description of Surgical Findings:: 65-year-old male presented to hospital with a small distal right stone and severe pain has not been able to pass the stone spontaneously after 24 hours and he requested surgical intervention. Took the patient back to surgery he underwent general anesthesia patient was placed in dorsolithotomy position. The penis and testicles were prepped and draped in usual sterile fashion, I went into the bladder with a 21 Cambodian rigid cystourethroscope, cannulated the right ureteral orifice could feel this wire going past the stone and then advanced a balloon dilator passed a wire and then balloon dilated the distal right ureter, after balloon dilating the distal right ureter which was quite small and inflamed I then was able to get into the ureter with a semirigid ureteroscope I then used a nitinol tipless basket and basketed the stone the distal ureter this was pulled out. I then over the wire advanced a stent the stent was advanced up into the right kidney left the string and the stent, drained the bladder remove the cystoscope and the stent coiled properly in the bladder the string was tapered. Patient will follow up next week for cystoscopy stent removal. Surgeon: sophie Type of Anesthesia: General Admit VTE Documentation VTE Present on Admission: No
--- NOTE | 2021-04-14 15:30 | CASEMGMT ---
Addendum entered by Sulema Monson 04/14/21 23:52: 1530: Discussed discharge plan w/pt and son @ bedside. Pt states has no concerns w/going home. He lives w/his , Layla, in-one story home w/2 steps to enter. He states he is independent. His is blind and he manages most home tasks. is able to help some as well. He drives and denies having transportation concerns. He denies need for HHC or OP therapy. The following info was obtained at this time. Pharmacy: [facility] PCP: Althea Flores NP Specialists: Dr Keen-cardiology, Dr Vu- urology [facility] [employer]. Prescription Benefits: Yes DME: Pt uses CPAP. Uses no DME to ambulate. Denies DME needs. d/c Plan: Home w/family support and discharge plans in place. Jose GANT RN CM Original Note: RN ENRIQUE NOTE: Intro role of CM to patient and [place] form explained re: Observation status for treatment of right ureteral stone. Explained hospitalization will be paid per his insurance policy for Outpatient billing and condition will continue to be evaluated for Inpt necessity. Also let pt know that [facility] sends paper in the billing packet with their phone number if questions arise. Discussed Pharmacy section of [place] form and self administered medication guideline. Pt verbalizes understanding and does not have further questions. Form signed, copy made and placed in chart, and original given to pt. Discussed discharge
--- NOTE | 2021-04-14 15:32 | DS.PCM_ITS ---
Providers Date of Admission: 04/13/21 Primary Care Physician: AMI Cottrell Reason For Visit: RIGHT URETERAL STONE Diagnosis Discharge Diagnosis (1) Hydronephrosis: Status: Acute Code(s): N13.30 - Unspecified hydronephrosis Qualifiers: Hydronephrosis type: with renal calculous obstruction Qualified Code(s): N13.2 - Hydronephrosis with renal and ureteral calculous obstruction (2) Calculus of ureterovesical junction (UVJ): Status: Acute Code(s): N20.1 - Calculus of ureter (3) Leukocytosis: Status: Acute Code(s): D72.829 - Elevated white blood cell count, unspecified Qualifiers: Leukocytosis type: other Qualified Code(s): D72.828 - Other elevated white blood cell count Medications at Discharge Home Medications aspirin 81 mg PO DAILY@0800 05/26/17 fluticasone propionate 50 mcg/actuation nasal spray,suspension 50 mcg INTRANASAL BID PRN 10/13/17 lisinopril 5 mg tablet 5 mg PO DAILY #90 tab 09/23/20 pravastatin 40 mg tablet 40 mg PO QHS #90 tab 02/06/21 omega-3 fatty acids 1,000 mg PO DAILY 04/13/21 acetaminophen 650 mg IA Q4H PRN PRN #0 ea 04/14/21 ibuprofen 400 mg PO Q4H PRN PRN #0 tab 04/14/21 tamsulosin 0.4 mg PO DAILY@1730 #30 cap 04/14/21 Hospital Course Summary of Care Provided Hospital Course: 1. Renal colic ?Secondary to . ureterovesicular junction stone causing obstruction and hydronephrosis 4 mm on CAT scan. Admitted to regular nursing floor being managed symptomatically with pain meds IV fluids and antinausea medications. Consult placed to Dr. Vu with urology. Patient underwent Cystoscopy, balloon dilation of the ureter, ureteroscopy basket extraction of stone and right stent placement 2. Leukocytosis Likely reactive trending down 3. DVT prophylaxis ?Deemed to be low risk; early ambulation encouraged Physical Exam Narrative GENERAL: cooperative HEENT: Atraumatic; EYES; Anicteric, Normal Conjunctiva NECK; supple, normal thyroid, RESPIRATORY: Diminished to auscultation CARDIOVASCULAR: Regular S1 S2, GI: soft, normoactive bowel sounds, : No Renal angle tenderness; EXTREMITIES: No edema, no clubbing, MUSCULOSKELETAL: no muscle waisting NEURO: Awake; no lateralizing signs. SKIN: No Rash PSYCH; Flat affect Weight / BMI Weight Weight: 91.4 kg Body Mass Index (BMI) 29.7 ABG / Lab / Microbiology Data Result Diagrams: 04/14/21 05:26 04/14/21 05:26 Laboratory: Laboratory Results - last 24 hr 04/14/21 05:26: WBC 10.2, RBC 4.26 L, Hgb 13.3, Hct 40.3, MCV 94.6 H, MCH 31.2, MCHC 33.0, RDW Std Deviation 46.9 H, RDW Coeff of Linnea 13.4, Plt Count 226, MPV 9.3, Immature Gran % (Auto) 0.500, Neut % (Auto) 74.8 H, Lymph % (Auto) 16.5 L, [place] % (Auto) 6.9, Eos % (Auto) 1.0, Baso % (Auto) 0.3, Absolute Neuts (auto) 7.7, Absolute Lymphs (auto) 1.69, Nucleated RBC % 0 04/14/21 05:26: Sodium 141, Potassium 4.3, Chloride 111 H, Carbon Dioxide 25.0, Anion Gap 5, BUN 12, Creatinine 1.52 H, Estim Creat Clear Calc 47.81, Est GFR (MDRD) Af Amer 59 L, Est GFR (MDRD) Non-Af 49 L, BUN/Creatinine Ratio 7.9 L, Glucose 104, Calcium 8.4 L 04/14/21 10:55: Troponin I High Sens 4.2 D/C Instructions Discharge Diet: No restrictions Discharge Activity: Return to Normal Activity Call your doctor if you observe: Fever of 101 or Higher Please Follow Up With: Tj Vu MD When: Call [phone] for an appointment Meaningful Use Info Meaningful Use Diagnoses (Choose all that apply): None applicable Discharge Plan Admission Admit Date/Time: 04/13/21 15:19 Primary Reason for Your Visit: Ureteral stone Attending Provider: Sumeet Manuel Primary Care Provider: Althea Flores NP Discharge Orders/Prescriptions Prescriptions: New acetaminophen 650 mg Suppository 650 mg IA Q4H PRN PRN (Reason: Pain Score 1-10/Temp > 100.7 F) Qty: 0 RF: 0 tamsulosin 0.4 mg Capsule 0.4 mg PO DAILY@1730 Qty: 30 RF: 0 ibuprofen 400 mg Tablet 400 mg PO Q4H PRN PRN (Reason: Pain Score 1-10/Temp > 100.7 F) Qty: 0 RF: 0 Continued fluticasone propionate [Flonase Allergy Relief] 50 mcg/actuation spray,suspension 50 mcg INTRANASAL BID PRN (Reason: Allergies) RF: 0 aspirin 81 MG tablet,chewable 81 mg PO DAILY@0800 RF: 0 omega-3 fatty acids Capsule 1,000 mg PO DAILY RF: 0 lisinopril 5 mg tablet 5 mg PO DAILY Qty: 90 RF: 3 pravastatin 40 mg tablet 40 mg PO QHS Qty: 90 RF: 3 Referrals / Follow Up: Tj Vu MD [STAFF PHYSICIAN] - Within 2 Weeks Althea Flores NP, [employer] GARNISHER-[employer] [Primary Care Provider] - In 1 Week Disposition Disposition (needs filled in before D/C Order can be placed): Home, Self Care Charges/Coding Visit Charges OBSV E&M: 03242 Observation care discharge
--- NOTE | 2021-04-14 15:48 | PCM.DC ---
Discharge Instructions Diet Discharge Diet: No restrictions Dressing / Incision Call your doctor if you observe: Fever of 101 or Higher Follow Up Care Please Follow Up With: Tj Vu MD Test Results: Test results from this visit will be discussed in further detail at your follow-up appointment, if applicable. Discharge Plan Admission Admit Date/Time: 04/13/21 15:19 Primary Reason for Your Visit: Ureteral stone Attending Provider: Sumeet Manuel Primary Care Provider: Althea Flores NP Discharge Orders/Prescriptions Prescriptions: New acetaminophen 650 mg Suppository 650 mg AR Q4H PRN PRN (Reason: Pain Score 1-10/Temp > 100.7 F) Qty: 0 RF: 0 tamsulosin 0.4 mg Capsule 0.4 mg PO DAILY@1730 Qty: 30 RF: 0 ibuprofen 400 mg Tablet 400 mg PO Q4H PRN PRN (Reason: Pain Score 1-10/Temp > 100.7 F) Qty: 0 RF: 0 Continued fluticasone propionate [Flonase Allergy Relief] 50 mcg/actuation spray,suspension 50 mcg INTRANASAL BID PRN (Reason: Allergies) RF: 0 aspirin 81 MG tablet,chewable 81 mg PO DAILY@0800 RF: 0 omega-3 fatty acids Capsule 1,000 mg PO DAILY RF: 0 lisinopril 5 mg tablet 5 mg PO DAILY Qty: 90 RF: 3 pravastatin 40 mg tablet 40 mg PO QHS Qty: 90 RF: 3 Referrals / Follow Up: Tj Vu MD [STAFF PHYSICIAN] - Within 2 Weeks Althea Flores NP, REGIONAL SALES CONSULTANT-C [Primary Care Provider] - In 1 Week Disposition Disposition (needs filled in before D/C Order can be placed): Home, Self Care
== END 2021-04-14 16:40 | disposition home or self-care (01) ==
LOC: ED 15:08 → MS3 15:30
PROVIDERS: Anesthesiology; Urology; Emergency Provider Emergency Medicine; PCP Nurse Practitioner Family; Visit Provider Internal Medicine
PROC: (CPT 52332; principal; 2021-04-14 10:30)
DX: N13.2 Hydronephrosis with renal and ureteral calculous obstruction (principal); D72.829 Elevated white blood cell count, unspecified; I25.10 Atherosclerotic heart disease of native coronary artery without angina pectoris; K21.9 Gastro-esophageal reflux disease without esophagitis; I10 Essential (primary) hypertension; I27.20 Pulmonary hypertension, unspecified; G47.33 Obstructive sleep apnea (adult) (pediatric); E78.00 Pure hypercholesterolemia, unspecified; N40.0 Benign prostatic hyperplasia without lower urinary tract symptoms; Z79.899 Other long term (current) drug therapy; Z79.82 Long term (current) use of aspirin
CPT/HCPCS: 52332; 52352; 36415; 74176; 80048; 81001; 84484; 85025; 93005; 96361; 96374; 96375; 96376; 99218; 99284; J7030; J7120; A4216; C1726; C1769; C2617; G0378; J2405

== ENCOUNTER → 2021-06-02 10:33 | Outpatient (CLI) | payer MEDICARE, BC, SELFPAY | PROVIDERS: PCP Nurse Practitioner Family; Visit Provider Urology | DX: R97.20 Elevated prostate specific antigen [PSA] (principal) | CPT/HCPCS: 36415; 84153 ==

== ENCOUNTER → 2021-06-25 09:48 | Outpatient (CLI) | payer MEDICARE, BC, SELFPAY ==
[2021-06-25 10:52] LABS: AST(SGOT) 18 U/L (15-37); Alanine Aminotransfer ALT/SGPT 30 U/L (16-61); Albumin, Serum 3.3 g/dL (3.2-5.0); Alkaline Phosphatase 113 U/L (45-117); Bilirubin, Direct 0.12 mg/dL (0.00-0.30); Cholesterol 154 mg/dL (200); Globulin 3.6 g/dL (2.2-4.2); High Density Lipoprotein 47 mg/dL; Protein, Total 6.9 g/dL (6.4-8.2); Triglycerides 103 mg/dL; Very Low Density Lipoprotein 21 mg/dL (5-40)
== END ==
PROVIDERS: PCP Nurse Practitioner Family; Referring Provider Internal Medicine Cardiovascular Disease; Visit Provider Internal Medicine Cardiovascular Disease
DX: E78.00 Pure hypercholesterolemia, unspecified (principal)
CPT/HCPCS: 36415; 80061; 80076

== ENCOUNTER → 2021-07-28 12:35 | Outpatient (CLI) | payer MEDICARE, BC, SELFPAY ==
[2021-07-28 13:51] LABS: Erythrocyte Sedimentation Rate 2 mm/hr (0-20)
[2021-07-28 13:54] LABS: Hematocrit 43.9 % (40-54); Hemoglobin 14.8 g/dL (13.0-16.5); Mean Corp Hgb Conc 33.7 g/dL (32-36); Mean Corpuscular Hgb 31.1 pg (27.0-32.0); Mean Corpuscular Volume 92.2 fL (80-94); Mean Platelet Vol. 10.1 fl (6.2-12.0); Platelet Count 275 K/mm3 (150-450); RBC Distribution Width CV 12.6 % (11.6-14.6); RBC Distribution Width SD 42.8 fl (35.1-43.9); Red Blood Count 4.76 M/mm3 (4.6-6.2); White Blood Count 8.2 K/mm3 (4.4-11.0)
[2021-07-28 14:07] LABS: CRP < 2.90 mg/L (0.0-3.0)
[2021-07-31 14:38] LABS: Acetylcholine Receptor Binding < 0.03 nmol/L (0.00-0.24)
== END ==
PROVIDERS: PCP Nurse Practitioner Family; Visit Provider Ophthalmology
DX: H53.2 Diplopia (principal); R51.9 Headache, unspecified
CPT/HCPCS: 36415; 84238; 85027; 85652; 86140

== ENCOUNTER → 2022-08-05 | Outpatient (CLI) | payer MEDICARE, BC, SELFPAY ==
[2022-08-05 14:00] LABS: AST(SGOT) 14 U/L (15-37); Alanine Aminotransfer ALT/SGPT 27 U/L (16-61); Albumin, Serum 3.6 g/dL (3.2-5.0); Alkaline Phosphatase 103 U/L (45-117); Bilirubin, Direct 0.16 mg/dL (0.00-0.30); Cholesterol 159 mg/dL (200); Globulin 3.7 g/dL (2.2-4.2); High Density Lipoprotein 50 mg/dL; Protein, Total 7.3 g/dL (6.4-8.2); Triglycerides 77 mg/dL; Very Low Density Lipoprotein 15 mg/dL (5-40)
== END | disposition home or self-care (01) ==
LOC: LAB 12:24
PROVIDERS: PCP Nurse Practitioner Family; Referring Provider Internal Medicine Cardiovascular Disease; Visit Provider Internal Medicine Cardiovascular Disease
DX: E78.00 Pure hypercholesterolemia, unspecified (principal); I25.10 Atherosclerotic heart disease of native coronary artery without angina pectoris
CPT/HCPCS: 36415; 80061; 80076

== ENCOUNTER → 2022-10-14 | Outpatient (CLI) | payer MEDICARE, BC, SELFPAY ==
[2022-10-14 16:36] LABS: Absolute Lymphocyte Count 2.27 X10^3/uL (0.83-4.51); Absolute Neutrophil Count 4.9 X10^3/uL (2.0-7.7); Basophil# 0.04 X10^3/uL; Basophil% 0.5 % (0-1); Eosinophil# 0.08 X10^3/uL; Hematocrit 43.8 % (40-54); Hemoglobin 15.2 g/dL (13.0-16.5); Lymphocyte # 2.27 X10^3/ul (0.83-4.51); Lymphocyte % 29.1 % (19-41); Mean Corp Hgb Conc 34.7 g/dL (32-36); Mean Corpuscular Hgb 31.9 pg (27.0-32.0); Mean Corpuscular Volume 91.8 fL (80-94); Mean Platelet Vol. 9.7 fl (6.2-12.0); Monocyte# 0.47 X10^3/uL; NRBC Flagged by Analyzer 0 % (0-5); Neutrophil # 4.93 X10^3/uL (2.7-7.7); Neutrophil % 63.1 % (47-70); Platelet Count 264 K/mm3 (150-450); RBC Distribution Width CV 12.8 % (11.6-14.6); RBC Distribution Width SD 42.8 fl (35.1-43.9); Red Blood Count 4.77 M/mm3 (4.6-6.2); White Blood Count 7.8 K/mm3 (4.4-11.0)
[2022-10-14 20:43] LABS: ALB/GLOB Ratio 1.1 RATIO (0.9-2.4); AST(SGOT) 13 U/L (15-37); Alanine Aminotransfer ALT/SGPT 36 U/L (16-61); Albumin, Serum 3.9 g/dL (3.2-5.0); Alkaline Phosphatase 95 U/L (45-117); Anion Gap 6 (5-15); BUN 16 mg/dL (7-18); BUN/Creat Ratio 16.6 RATIO (10-20); Calcium,Total 9.8 mg/dL (8.5-10.1); Chloride 108 mmol/L (98-107); Creatinine, Serum 0.96 mg/dL (0.70-1.30); EST Glomerular Filtration Rate 82 mL/min (>60); Est Glom Filt Rate - Afr Amer 100 mL/min (>60); Globulin 3.4 g/dL (2.2-4.2); Glucose 94 mg/dL (74-106); Potassium 4.1 mmol/L (3.5-5.1); Protein, Total 7.3 g/dL (6.4-8.2); Sodium Level 140 mmol/L (136-145)
== END | disposition home or self-care (01) ==
LOC: BIMLAB 15:34
PROVIDERS: PCP Internal Medicine; Referring Provider Internal Medicine; Visit Provider Internal Medicine
DX: I25.10 Atherosclerotic heart disease of native coronary artery without angina pectoris (principal); I10 Essential (primary) hypertension
CPT/HCPCS: 36415; 80053; 85025

== ENCOUNTER → 2022-12-04 | Outpatient (CLI) | payer MEDICARE, BC, SELFPAY | END | disposition home or self-care (01) | LOC: LAB 12:27 | PROVIDERS: PCP Internal Medicine; Referring Provider Urology; Visit Provider Urology | DX: R97.20 Elevated prostate specific antigen [PSA] (principal) | CPT/HCPCS: 36415; 84153 ==

== ENCOUNTER 2022-12-21 14:56 | Emergency (ER) | payer MEDICARE, BC, SELFPAY ==
[2022-12-21 14:59] VITALS: BP 134/92; PULSE 115; RESP 18; TEMP 36.6; O2SAT 96; BMI 30.5
--- NOTE | 2022-12-21 15:38 | VDUE_ITS ---
Reason For Study: Swelling Right Proximal Left Proximal Right subclavian vein is spontaneous, widely Left jugular vein is widely patent, patent, phasic, with no intraluminal compressible, with no intraluminal echogenicity noted. echogenicity noted. Left subclavian vein is spontaneous, widely patent, phasic, with no intraluminal echogenicity noted. Left Arm Left axillary vein is spontaneous, patent, phasic, competent, compressible and demonstrates augmentation. Acute deep vein thrombosis is noted in the left Brachial vein at basilic origin. Left cephalic vein is compressible. Acute superficial vein thrombosis is noted in the left basilic vein. Left Lower Arm Left radial vein is compressible. Left ulnar vein is compressible. Patient Safety Preliminary report given to Dr. Pennington. VL/Venous Duplex US, Unilateral Interpretation Summary Left Brachial vein acute deep venous thrombosis Superficial thrombophlebitis left basilic vein Normal flow patterns right subclavian vein Ordering Physician: Tripp Pennington Referring Physician: Geena Burroughs Performed By: Earnest Vazquez RVT ???
--- NOTE | 2022-12-21 15:39 | EDS_ITS ---
HPI History of Present Illness Chief Complaint: Cellulitis Informant: patient and spouse/S.O. Narrative Narrative: Patient had a left total shoulder done 1 week ago at [facility]. He states he started to get erythema and rash of his arm while he was still in the hospital. He followed up on Wednesday and saw the nurse practitioner. They stated they never seen anything like this. They recommend hydrocortisone. He states the rash seems to be where his sling is located. It has not spread away from the left shoulder or arm. He denies fevers chills sweats. He states the area is very pruritic. He feels fine. He states that his shoulder is not hurting a nd it seems like his shoulder is healing quite well. He states that the rash has had a little weeping near his elbow but he has never had any involvement of the incision itself. He saw physical therapist today who stated he has to be seen in the emergency department right away. Nothing specifically makes this a lot better or worse. [facility] Medical History Atherosclerotic heart disease of [place] coronary artery without angina pectoris BPH (benign prostatic hyperplasia) CAD (coronary artery disease) Cancer Diverticulitis Essential hypertension Flank hernia Fracture GERD (gastroesophageal reflux disease) History of stress test Injury of head and neck Intractable pain Kidney stone Kidney stones Left calcaneal fracture Mild mitral regurgitation Mild pulmonary hypertension Mild tricuspid regurgitation Mitral valve prolapse Non-rheumatic mitral regurgitation Nonrheumatic mitral (valve) prolapse Nonrheumatic tricuspid valve regurgitation LINDA on CPAP Pure hypercholesterolemia Home Medications aspirin 81 mg chewable tablet 81 mg PO DAILY@0800 05/26/17 [History Last Taken 04/12/21] fluticasone propionate 50 mcg/actuation nasal spray,suspension (Flonase Allergy Relief) 50 mcg intranasal BID PRN Allergies 10/13/17 [History Last Taken Unknown] ibuprofen 400 mg tablet 400 mg PO Q4H PRN PRN Pain Score 1-10/Temp > 100.7 F #0 tabs 04/14/21 [Rx Last Taken Unknown] pravastatin 40 mg tablet 40 mg PO QHS #90 tabs 01/19/22 [Rx Last Taken Unknown] lisinopril 5 mg tablet 5 mg PO DAILY #90 tabs 05/06/22 [Rx Last Taken Unknown] meloxicam 15 mg tablet 15 mg PO DAILY PRN 08/05/22 [History Last Taken Unknown] tamsulosin 0.4 mg capsule 0.4 mg PO Q OTHER DAY 08/05/22 [History Last Taken Unknown] alprazolam 0.25 mg tablet (Xanax) 0.25 mg PO DAILY PRN anxiety 10/14/22 [History Last Taken Unknown] escitalopram oxalate 10 mg tablet (Lexapro) 10 mg PO DAILY #30 tabs 12/03/22 [Rx Last Taken Unknown] apixaban 5 mg tablet (Eliquis) 5 mg PO BID #74 tabs 12/21/22 [Rx Last Taken Unknown] methylprednisolone 4 mg tablets in a dose pack (Medrol (Isidro)) 4 mg PO DAILY #21 tabs 12/21/22 [Rx Last Taken Unknown] nystatin 100,000 unit/gram topical ointment 1 applic topical BID #30 grams 12/21/22 [Rx Last Taken Unknown] Allergy/AdvReac Type Severity Reaction Status Date / Time No Known Allergies Allergy Verified 12/21/22 15:04 Family History Father , age 70, multiple [place] Myocardial infarction Cancer skin CAD (coronary artery disease) Mother CHF (congestive heart failure) Hypertension Brother Myocardial infarction, Onset Age: 44 Heart disease Grandfather CVA (cerebral vascular accident) Sister Cancer Bone CA Uncle Diabetes Surgical History H/O eye surgery History of bilateral cataract extraction History of mandibular surgery History of right inguinal hernia repair History of umbilical hernia repair Radial nerve laceration S/P ORIF (open reduction internal fixation) fracture Social History household members: spouse current occupational status: retired 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 Smoking Status: Never smoker Electronic Cigarette Use: not used alcohol intake: never substance use type: does not use caffeine: Yes Type: carbonated beverages and coffee what type of physical activity do you participate in: other details: tredmill frequency: 1-2 times per week duration: 15-30 minutes/day seatbelt use: sometimes do you feel safe at home: Yes ROS ROS ED Constitutional Constitutional ED: Denies chills, fever(s), subjective or sweats ENT ENT ED: Denies rhinorrhea or sore throat Cardiovascular Cardiovascular: Denies chest pain, palpitations or racing heartbeat Respiratory/Chest Respiratory/Chest: Denies cough or dyspnea Gastrointestinal Gastrointestinal: Denies nausea or vomiting Musculoskeletal Musculoskeletal: Reports other Details: He states that his shoulder is not really hurting him. He can move it reasonably well. The therapist was happy with his range of motion. ; Denies neck pain Integumentary Reports rash Neurologic Neurologic: Denies paresthesias or weakness Hematologic/Lymphatic Hematologic/Lymphatic: Denies easy bleeding or easy bruising Allergic/Immunologic Allergic/Immunologic ED: Denies mouth swelling or tongue swelling EXAM Physical Exam Narrative Exam Narrative: Patient awake alert no acute distress. He is sitting on chair. We have a moved to the bed for better exam. He is nontoxic. HEENT shows no rash or intraoral petechiae or lesions. Mucous membranes are moist. Eyes show no injection Neck shows no involvement or JVD Lungs are clear bilaterally Heart is regular. Rate about 90. Abdomen soft nontender shows no CVA or suprapubic tenderness Extremity: He has a very well-healing incision in the anterior left shoulder. There is no erythema weeping or drainage of this incision. Its not tender or swollen. This looks like it is healing quite well. Skin there is diffuse erythema and a blotchy pattern around his left shoulder mostly posteriorly on the arm and in the axillary area. This is in the area where his sling crosses. The line on his back seems pretty well demarcated and matches the sling support. The area is red. Its not tender. This looks more allergic than cellulitic to me. Const Vital Signs: 12/21/22 14:59 Temperature 97.9 F Temperature Source Temporal Pulse Rate 115 H Respiratory Rate 18 Blood Pressure 134/92 H Blood Pressure Mean 106 Pulse Ox 96 Oxygen Delivery Method Room Air MDM MDM MDM Narrative Medical decision making narrative: Blood work shows minimal nonspecific elevation of the white count. Hemoglobin platelets are normal. Electrolytes are normal including glucose is just minimally up at 113. Patient's ultrasound does show both superficial and deep clot. I think we clot is likely the cause of some of his swelling. But I do not think this represents the cause of his rash because his rash extends much more proximally. I discussed the case directly with orthopedic surgeon on-call for Dr. Fabien Reji. He felt that this could be reaction to the skin prep. It may also be reaction to the sling. He does match the area of sling. With the significant involvement in the axilla, he states that its not uncommon for them to get some yeast involvement in that area so we will start nystatin topically. We will start Medrol dose pack because this rash really looks to be consistent with a topical/contact dermatitis. I will also start Eliquis and I discussed risk b enefits and options with the patient. He will follow-up with his orthopedic surgeon later this week. He will contact his private physician and follow-up as he will likely need repeat ultrasound to gauge progress and improvement. Lab Data Labs: Laboratory Results - last 24 hr 12/21/22 12/21/22 13:50 13:50 WBC 11.3 H RBC 4.39 L Hgb 14.1 Hct 42.0 MCV 95.7 H MCH 32.1 H MCHC 33.6 RDW Std Deviation 43.5 RDW Coeff of Linnea 12.2 Plt Count 367 MPV 9.3 Immature Gran % (Auto) 1.000 H Neut % (Auto) 70.8 H Lymph % (Auto) 17.0 L [place] % (Auto) 7.4 Eos % (Auto) 3.4 Baso % (Auto) 0.4 Absolute Neuts (auto) 8.0 H Absolute Lymphs (auto) 1.92 Nucleated RBC % 0 Sodium 141 Potassium 4.2 Chloride 107 Carbon Dioxide 27.0 Anion Gap 7 BUN 17 Creatinine 0.98 Estim Creat Clear Calc 69.80 Est GFR (MDRD) Af Amer 97 Est GFR (MDRD) Non-Af 80 BUN/Creatinine Ratio 17.3 Glucose 113 H Calcium 10.8 H Radiography Diagnostic Testing: Clinical Impression(s) from Imaging Studies Venous Doppler Study 12/21/22 15:38 Interpretation Summary Left Brachial vein acute deep venous thrombosis Superficial thrombophlebitis left basilic vein Normal flow patterns right subclavian vein Ordering Physician: Tripp Pennington Referring Physician: Geena Burroughs Performed By: Earnest Vazquez T ??? Discharge Plan Triage Chief Complaint: Cellulitis ED Provider: Tripp Pennington Dx/Rx/DC Orders Clinical Impression: Contact dermatitis, Acute deep vein thrombosis (DVT) of left upper extremity Instructions: ED Contact Dermatitis, ED Deep Vein Thrombosis (DVT) Prescriptions: New Eliquis 5 mg tablet 5 mg PO BID Qty: 74 0RF Rx Instructions: 10 mg twice a day for the first week. Then 5 mg twice a day. nystatin 100,000 unit/gram ointment 1 applic topical BID Qty: 30 0RF methylprednisolone [Medrol (Isidro)] 4 mg tablets,dose pack 4 mg PO DAILY Qty: 21 0RF No Action fluticasone propionate [Flonase Allergy Relief] 50 mcg/actuation spray,suspension 50 mcg INTRANASAL BID PRN (Reason: Allergies) tamsulosin 0.4 mg capsule 0.4 mg PO Q OTHER DAY meloxicam 15 mg tablet 15 mg PO DAILY PRN alprazolam [Xanax] 0.25 mg tablet 0.25 mg PO DAILY PRN (Reason: anxiety) aspirin 81 MG tablet,chewable 81 mg PO DAILY@0800 ibuprofen 400 mg Tablet 400 mg PO Q4H PRN PRN (Reason: Pain Score 1-10/Temp > 100.7 F) Qty: 0 0RF pravastatin 40 mg tablet 40 mg PO QHS Qty: 90 3RF lisinopril 5 mg tablet 5 mg PO DAILY Qty: 90 3RF escitalopram oxalate [Lexapro] 10 mg tablet 10 mg PO DAILY Qty: 30 5RF Primary Care Provider: Geena Burroughs Referrals: Geena Burroughs MD [Primary Care Provider] - As soon as possible Activity Restrictions/Additional Instructions: Follow-up with your orthopedic surgeon later this week. Call them tomorrow for an appointment. Disposition Disposition: Home, Self Care
[2022-12-21 16:13] LABS: Anion Gap 7 (5-15); BUN 17 mg/dL (7-18); BUN/Creat Ratio 17.3 RATIO (10-20); Calcium,Total 10.8 mg/dL (8.5-10.1); Chloride 107 mmol/L (98-107); Creatinine, Serum 0.98 mg/dL (0.70-1.30); EST Glomerular Filtration Rate 80 mL/min (>60); Est Glom Filt Rate - Afr Amer 97 mL/min (>60); Glucose 113 mg/dL (74-106); Potassium 4.2 mmol/L (3.5-5.1); Sodium Level 141 mmol/L (136-145)
[2022-12-21 16:14] LABS: Absolute Lymphocyte Count 1.92 X10^3/uL (0.83-4.51); Basophil# 0.04 X10^3/uL; Basophil% 0.4 % (0-1); Eosinophil# 0.38 X10^3/uL; Eosinophils% 3.4 % (0-5); Hemoglobin 14.1 g/dL (13.0-16.5); Lymphocyte # 1.92 X10^3/ul (0.83-4.51); Mean Corp Hgb Conc 33.6 g/dL (32-36); Mean Corpuscular Hgb 32.1 pg (27.0-32.0); Mean Corpuscular Volume 95.7 fL (80-94); Mean Platelet Vol. 9.3 fl (6.2-12.0); Monocyte# 0.84 X10^3/uL; Monocyte% 7.4 % (0-10); NRBC Flagged by Analyzer 0 % (0-5); Neutrophil # 8.01 X10^3/uL (2.7-7.7); Neutrophil % 70.8 % (47-70); Platelet Count 367 K/mm3 (150-450); RBC Distribution Width CV 12.2 % (11.6-14.6); RBC Distribution Width SD 43.5 fl (35.1-43.9); Red Blood Count 4.39 M/mm3 (4.6-6.2); White Blood Count 11.3 K/mm3 (4.4-11.0)
[2022-12-21 17:00] VITALS: BP 132/78; PULSE 67; RESP 14; O2SAT 97
[2022-12-21 18:00] VITALS: BP 134/78; PULSE 78; RESP 16; TEMP 36.6; O2SAT 100
[2022-12-21] MEDS: APIXABAN 5 MG TABLET 10 MG PO (18:08)
[2022-12-21 18:12] VITALS: RESP 18
== END 2022-12-21 18:18 | disposition home or self-care (01) ==
PROVIDERS: Emergency Provider Emergency Medicine; PCP Internal Medicine; Visit Provider Emergency Medicine
DX: L25.9 Unspecified contact dermatitis, unspecified cause (principal); I82.622 Acute embolism and thrombosis of deep veins of left upper extremity; I25.10 Atherosclerotic heart disease of native coronary artery without angina pectoris; I10 Essential (primary) hypertension; E78.00 Pure hypercholesterolemia, unspecified
CPT/HCPCS: 80048; 85025; 93971; 99284; A4216

== ENCOUNTER 2023-01-30 13:02 | Emergency (ER) | payer MEDICARE, BC, SELFPAY ==
[2023-01-30 13:04] VITALS: BP 134/65; PULSE 84; RESP 16; TEMP 37.5; O2SAT 97; BMI 29.5
[2023-01-30 13:09] VITALS: BP 134/65; PULSE 84; RESP 16; TEMP 37.5; O2SAT 97
--- NOTE | 2023-01-30 13:18 | RAD_ITS ---
STUDY: X-RAY CHEST REASON FOR EXAM: Male, 67 years old. Cough TECHNIQUE: PA and lateral views of the chest. COMPARISON: April 03, 2020. FINDINGS: There is hyperinflation of the lungs consistent with chronic obstructive lung disease (COPD). There is no demonstrated pleural abnormality. Normal size heart. Normal mediastinum and blanca. Normal visualized pulmonary arteries. Normal visualized aortic arch and descending thoracic aorta. There are diffuse degenerative changes of the visualized thoracic spine. There is left shoulder replacement. There is no demonstrated abnormality of the visualized soft tissue structures of the upper abdomen. RAD/Chest PA and Lateral IMPRESSION: Degenerative changes, as described above. No demonstrated acute cardiopulmonary process. Electronically Signed: Antoni Call MD at 14:39 EDT ,
[2023-01-30] MEDS: Ipratropium/Albuterol Sulfate 3 ML AMPUL.NEB INHALATION (13:24)
[2023-01-30 13:27] VITALS: PULSE 80; RESP 18
--- NOTE | 2023-01-30 13:29 | EX.ED.DYSGE1 ---
HPI History of Present Illness Chief Complaint: Cough Informant: patient and spouse/S.O. Narrative Narrative: Patient started with some cough and generalized malaise on . He is bringing up some yellow sputum. No fever although he has a mild elevation of the temperature here. No wheezing that he is heard. He has had slightly hoarse voice and mild nasal congestion and rhinorrhea. But his biggest complaint is the cough and sputum. The cough is keeping him up at night. He also feels generally tired. Its not so much dyspnea on exertion as it is just fatigue. They did check COVID test at home on but that was negative. He does not have any known sick contacts. Of note, the patient was diagnosed with a DVT recently and is on Eliquis and is taking it twice a day as prescribed and has not missed dosages. Although he is on lisinopril that can cause a cough he has been on it for years unchanged and never had this cough. He is also on a statin that can cause some myalgias achiness and tiredness but that is also been taken for many years without those symptoms. [facility] Medical History Atherosclerotic heart disease of [place] coronary artery without angina pectoris BPH (benign prostatic hyperplasia) CAD (coronary artery disease) Cancer Diverticulitis Essential hypertension Flank hernia Fracture GERD (gastroesophageal reflux disease) History of stress test Injury of head and neck Intractable pain Kidney stone Kidney stones Left calcaneal fracture Mild mitral regurgitation Mild pulmonary hypertension Mild tricuspid regurgitation Mitral valve prolapse Non-rheumatic mitral regurgitation Nonrheumatic mitral (valve) prolapse Nonrheumatic tricuspid valve regurgitation LINDA on CPAP Pure hypercholesterolemia Home Medications fluticasone propionate 50 mcg/actuation nasal spray,suspension (Flonase Allergy Relief) 50 mcg intranasal BID PRN Allergies 10/13/17 [History Last Taken Unknown] lisinopril 5 mg tablet 5 mg PO DAILY #90 tabs 05/06/22 [Rx Last Taken Unknown] tamsulosin 0.4 mg capsule 0.4 mg PO Q OTHER DAY 08/05/22 [History Last Taken Unknown] escitalopram oxalate 10 mg tablet (Lexapro) 10 mg PO DAILY #30 tabs 12/03/22 [Rx Last Taken Unknown] apixaban 5 mg tablet (Eliquis) 5 mg PO BID #74 tabs 12/21/22 [Rx Last Taken Unknown] nystatin 100,000 unit/gram topical ointment 1 applic topical BID #30 grams 12/21/22 [Rx Last Taken Unknown] pravastatin 40 mg tablet 40 mg PO QHS #90 tabs 01/18/23 [Rx Last Taken Unknown] Allergy/AdvReac Type Severity Reaction Status Date / Time No Known Allergies Allergy Verified 01/30/23 13:06 Family History Father , age 70, multiple [place] Myocardial infarction Cancer skin CAD (coronary artery disease) Mother CHF (congestive heart failure) Hypertension Brother Myocardial infarction, Onset Age: 44 Heart disease Grandfather CVA (cerebral vascular accident) Sister Cancer Bone CA Uncle Diabetes Surgical History H/O eye surgery History of bilateral cataract extraction History of mandibular surgery History of right inguinal hernia repair History of umbilical hernia repair Radial nerve laceration S/P ORIF (open reduction internal fixation) fracture S/p reverse total shoulder arthroplasty Social History household members: spouse current occupational status: retired 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 Some specific details below. Constitutional: No recent fevers or chills. He does have some myalgias and overall feeling of decreased energy. EYE: No discharge, visual complaints, or pain. ENT: No difficulty swallowing but he does have a slightly sore throat. He also gets some nasal congestion alternating with rhinorrhea. No swelling. No pain. No reflux symptoms. CV: See history of present illness. He denies chest pain but he is getting sore mostly in the upper abdomen with coughing. Respiratory: See history of present illness. GI: No abdominal pain. No nausea vomiting diarrhea. No blood in stool. : No frequency dysuria or hematuria. Musculoskeletal: No recent trauma. No pains. No swelling. Skin: No rash. Nondiaphoretic. Neuro: No weakness or numbness. He does have generalized tiredness though. Endocrine: No polyuria or polydipsia. EXAM Physical Exam Narrative Exam Narrative: CONSTITUTIONAL: Patient is nontoxic in appearance. The patient looks comfortable. Work of breathing looks normal. HEENT: No notable trauma. Mucous membranes moist. His throat is actually not red and there is no exudate. No sinus tenderness. No indication of pain with swallowing. There is some mild nasal congestion. EYES: No conjunctival injection. No proptosis. NECK:No JVD. No stridor. His voice is just a little bit scratchy. CARDIOVASCULAR: Regular rate. Regular rhythm. No notable murmur. No JVD. RESPIRATORY: No respiratory distress. Breathing is unlabored. No wheezes. No rhonchi. No rales. No pain with a deep breath. No chest wall tenderness. His saturations here are 97 to 98% on room air showing no hypoxia. And this is after he just walked back from the front. GASTROINTESTINAL: Not distended. Bowel sounds are normal. No tenderness. No guarding. No rebound. No palpable mass. No bruit is heard. GENITOURINARY: No tenderness over the bladder. No CVA tenderness. MUSCULOSKELETAL: Atraumatic. No peripheral edema. No cord. No tenderness along the deep venous system. No asymmetry. No distended veins. Patient had his DVT in his left upper extremity after his recent shoulder replacement but there is no notable swelling. NEUROLOGICAL: Patient is alert and appropriate. No focal deficit noted. SKIN: No noted rashes. No diaphoresis. PSYCHIATRIC: Patient is calm. Mood is appropriate. Const Vital Signs: 01/30/23 13:04 01/30/23 13:09 Temperature 99.5 F H 99.5 F H Temperature Source Temporal Temporal Pulse Rate 84 84 Respiratory Rate 16 16 Blood Pressure 134/65 H 134/65 H Blood Pressure Mean 88 88 Pulse Ox 97 97 Oxygen Delivery Method Room Air Room Air [facility] EKG Initial EKG: Comments: My independent interpretation the patient's EKG done for dyspnea shows sinus rhythm with overall rate of 95. No ectopy. Mildly irregular baseline but no ST elevation or depression. HI interval, QRS duration and QTc are normal. Discharge Plan Triage Chief Complaint: Cough ED Provider: Tripp Pennington Dx/Rx/DC Orders Prescriptions: No Action fluticasone propionate [Flonase Allergy Relief] 50 mcg/actuation spray,suspension 50 mcg INTRANASAL BID PRN (Reason: Allergies) tamsulosin 0.4 mg capsule 0.4 mg PO Q OTHER DAY Eliquis 5 mg tablet 5 mg PO BID Qty: 74 0RF Rx Instructions: 10 mg twice a day for the first week. Then 5 mg twice a day. nystatin 100,000 unit/gram ointment 1 applic topical BID Qty: 30 0RF lisinopril 5 mg tablet 5 mg PO DAILY Qty: 90 3RF escitalopram oxalate [Lexapro] 10 mg tablet 10 mg PO DAILY Qty: 30 5RF pravastatin 40 mg tablet 40 mg PO QHS Qty: 90 3RF Primary Care Provider: Geena Burroughs Referrals: Geena Burroughs MD [Primary Care Provider] -
[2023-01-30 13:41] LABS: Absolute Lymphocyte Count 1.24 X10^3/uL (0.83-4.51); Absolute Neutrophil Count 5.1 X10^3/uL (2.0-7.7); Basophil# 0.04 X10^3/uL; Basophil% 0.6 % (0-1); Eosinophil# 0.02 X10^3/uL; Eosinophils% 0.3 % (0-5); Hematocrit 39.2 % (40-54); Hemoglobin 12.6 g/dL (13.0-16.5); Lymphocyte # 1.24 X10^3/ul (0.83-4.51); Lymphocyte % 17.6 % (19-41); Mean Corp Hgb Conc 32.1 g/dL (32-36); Mean Corpuscular Volume 96.6 fL (80-94); Mean Platelet Vol. 9.5 fl (6.2-12.0); Monocyte# 0.64 X10^3/uL; Monocyte% 9.1 % (0-10); NRBC Flagged by Analyzer 0 % (0-5); Neutrophil # 5.08 X10^3/uL (2.7-7.7); Neutrophil % 71.8 % (47-70); Platelet Count 191 K/mm3 (150-450); RBC Distribution Width SD 46.5 fl (35.1-43.9); Red Blood Count 4.06 M/mm3 (4.6-6.2); White Blood Count 7.1 K/mm3 (4.4-11.0)
[2023-01-30 13:58] LABS: Anion Gap 6 (5-15); BUN 13 mg/dL (7-18); BUN/Creat Ratio 13.6 RATIO (10-20); Calcium,Total 9.5 mg/dL (8.5-10.1); Chloride 105 mmol/L (98-107); Creatinine, Serum 0.96 mg/dL (0.70-1.30); EST Glomerular Filtration Rate 83 mL/min (>60); Est Glom Filt Rate - Afr Amer 101 mL/min (>60); Estimated Creatinine Clearance 71.25 ml/min; Glucose 94 mg/dL (74-106); Potassium 4.2 mmol/L (3.5-5.1); Sodium Level 137 mmol/L (136-145)
== END 2023-01-30 15:21 | disposition home or self-care (01) ==
PROVIDERS: Emergency Provider Emergency Medicine; PCP Internal Medicine; Visit Provider Emergency Medicine
DX: R05.9 Cough, unspecified (principal); I25.10 Atherosclerotic heart disease of native coronary artery without angina pectoris; E78.00 Pure hypercholesterolemia, unspecified; R09.3 Abnormal sputum; I10 Essential (primary) hypertension
CPT/HCPCS: 71046; 80048; 85025; 87428; 93005; 94640; 99283; A4216

== ENCOUNTER → 2023-03-10 | Outpatient (CLI) | payer MEDICARE, BC, SELFPAY | END | disposition home or self-care (01) | LOC: BIMLAB 14:14 | PROVIDERS: PCP Internal Medicine; Visit Provider Registered Nurse | DX: R97.20 Elevated prostate specific antigen [PSA] (principal) | CPT/HCPCS: 36415; 84153; G0103 ==

== ENCOUNTER → 2023-03-16 | Outpatient (CLI) | payer MEDICARE, BC, SELFPAY ==
[2023-03-16 13:01] LABS: AST(SGOT) 17 U/L (15-37); Alanine Aminotransfer ALT/SGPT 25 U/L (16-61); Albumin, Serum 3.4 g/dL (3.2-5.0); Alkaline Phosphatase 112 U/L (45-117); Bilirubin, Direct 0.16 mg/dL (0.00-0.30); Cholesterol 166 mg/dL (200); Globulin 3.7 g/dL (2.2-4.2); High Density Lipoprotein 47 mg/dL; Protein, Total 7.1 g/dL (6.4-8.2); Triglycerides 101 mg/dL; Very Low Density Lipoprotein 20 mg/dL (5-40)
== END | disposition home or self-care (01) ==
LOC: LAB 11:39
PROVIDERS: PCP Internal Medicine; Referring Provider Internal Medicine Cardiovascular Disease; Visit Provider Physician Assistant Medical
DX: E78.00 Pure hypercholesterolemia, unspecified (principal)
CPT/HCPCS: 36415; 80061; 80076

== ENCOUNTER → 2023-03-18 | Outpatient (CLI) | payer MEDICARE, BC, SELFPAY ==
--- NOTE | 2023-03-18 09:10 | MRI_ITS ---
STUDY: MR PELVIS WITH AND WITHOUT CONTRAST (PROSTATE) REASON FOR EXAM: Male, 67 years old. Elevated PSA, prostatic hyperplasia TECHNIQUE: Standardized multiparametric prostate MRI with T1, T2, DWI/ADC sequences were obtained in 3 orthogonal planes, and dynamic contrast enhancement sequences. 18 ml of clariscan contrast material was administered intravenously for the contrast portion of the examination. COMPARISON: Report 04/16/2014, images not available. FINDINGS: The prostate volume measures 97.6 mm3. The contours of the prostate gland are smooth. There is mass effect on the bladder base. The transition zone is heterogenous. PI-RADS DWI score 2 - Hypointense within a BPH nodule on ADC. PI-RADS T2W score 2 - A mostly encapsulated nodule OR a homogeneous circumscribed nodule without encapsulation (atypical nodule) or a homogeneous mildly hypointense area between nodules.. Contrast enhancement no early or contemporaneous enhancement; or diffuse multifocal enhancement NOT corresponding to a focal finding on T2W and/or DWI or focal ehancement responding to a lesion demonstrating features of BPH onT2WI (including features of extruded BPH in the PZ). The peripheral zone is homogenous. PI-RADS DWI score 2 - Linear/wedge shaped hypointense on ADC and/or linear/wedge shaped hyperintense on high b-value DWI. PI-RADS T2W score 2 - Linear, wedge-shaped, or diffuse mild hypointensity, usually with indistinct margin. Contrast enhancement no early or contemporaneous enhancement; or diffuse multifocal enhancement NOT corresponding to a focal finding on T2W and/or DWI or focal enhancement responding to a lesion demonstrating features of BPH onT2WI (including features of extruded BPH in the PZ). The seminal vesicles demonstrate normal margins and T2 signal pattern. No mass lesion or invasion depicted. The rectoprostatic angles are normal. Urinary bladder is nondistended with mild trabeculation. The vascular structures of the are normal. Small fat-containing left inguinal hernia. The visualized hollow viscus structures are normal. No bone marrow edema or mass lesion depicted. MRI/Pelvis W/WO Contrast IMPRESSION: 1. PIRADS v2.1 2018 -- 2 - Low (clinically significant cancer is unlikely). Electronically Signed: Xander Hester (Brooks), at 11:09 EDT ,
[2023-03-18 09:41] LABS: CREATININE FINGERSTICK < 0.9 mg/dL (0.70-1.30); EGFR FINGERSTICK > 60.0000 mL/min (>60)
== END | disposition home or self-care (01) ==
LOC: MRI 09:07
PROVIDERS: PCP Internal Medicine; Referring Provider Urology; Visit Provider Urology
DX: N40.1 Benign prostatic hyperplasia with lower urinary tract symptoms (principal); R97.20 Elevated prostate specific antigen [PSA]
CPT/HCPCS: 72197; A9575

== ENCOUNTER → 2023-11-23 | Outpatient (CLI) | payer MEDICARE, BC, SELFPAY ==
[2023-11-23 12:17] LABS: Absolute Lymphocyte Count 1.86 X10^3/uL (0.83-4.51); Absolute Neutrophil Count 3.5 X10^3/uL (2.0-7.7); Basophil# 0.03 X10^3/uL; Basophil% 0.5 % (0-1); Eosinophil# 0.24 X10^3/uL; Eosinophils% 3.9 % (0-5); Hematocrit 43.7 % (40-54); Hemoglobin 14.3 g/dL (13.0-16.5); Lymphocyte # 1.86 X10^3/ul (0.83-4.51); Lymphocyte % 30.5 % (19-41); Mean Corp Hgb Conc 32.7 g/dL (32-36); Mean Corpuscular Volume 94.6 fL (80-94); Monocyte# 0.45 X10^3/uL; Monocyte% 7.4 % (0-10); NRBC Flagged by Analyzer 0 % (0-5); Neutrophil # 3.48 X10^3/uL (2.7-7.7); Neutrophil % 57.2 % (47-70); Platelet Count 250 K/mm3 (150-450); RBC Distribution Width CV 13.2 % (11.6-14.6); RBC Distribution Width SD 45.6 fl (35.1-43.9); Red Blood Count 4.62 M/mm3 (4.6-6.2); White Blood Count 6.1 K/mm3 (4.4-11.0)
[2023-11-23 12:33] LABS: AST(SGOT) 14 U/L (15-37); Alanine Aminotransfer ALT/SGPT 23 U/L (16-61); Albumin, Serum 3.5 g/dL (3.2-5.0); Alkaline Phosphatase 119 U/L (45-117); Anion Gap 5 (5-15); BUN 14 mg/dL (7-18); BUN/Creat Ratio 14.4 RATIO (10-20); Bilirubin, Direct 0.12 mg/dL (0.00-0.30); Chloride 110 mmol/L (98-107); Cholesterol 200 mg/dL (200); Creatinine, Serum 0.97 mg/dL (0.70-1.30); EST Glomerular Filtration Rate 81 mL/min (>60); Est Glom Filt Rate - Afr Amer 99 mL/min (>60); Globulin 3.4 g/dL (2.2-4.2); Glucose 101 mg/dL (74-106); High Density Lipoprotein 45 mg/dL; PSA,Total- Diagnostic 7.24 ng/mL (0.0-4.0); Potassium 4.9 mmol/L (3.5-5.1); Protein, Total 6.9 g/dL (6.4-8.2); Sodium Level 142 mmol/L (136-145); Triglycerides 129 mg/dL; Very Low Density Lipoprotein 26 mg/dL (5-40)
[2023-11-23 12:52] LABS: Vitamin B12 318 pg/mL (211-911); Vitamin D,25 Hydroxy 28.5 ng/mL
== END | disposition home or self-care (01) ==
LOC: BIMLAB 09:51
PROVIDERS: PCP Internal Medicine; Visit Provider Internal Medicine
DX: R97.20 Elevated prostate specific antigen [PSA] (principal); F32.1 Major depressive disorder, single episode, moderate; E55.9 Vitamin D deficiency, unspecified; I25.10 Atherosclerotic heart disease of native coronary artery without angina pectoris; F41.9 Anxiety disorder, unspecified
CPT/HCPCS: 36415; 80053; 80061; 82248; 82306; 82607; 84153; 85025

== ENCOUNTER → 2024-03-20 | Outpatient (CLI) | payer MEDICARE, BC, SELFPAY ==
[2024-03-20 13:10] LABS: PSA,Total- Diagnostic 6.62 ng/mL (0.0-4.0)
== END | disposition home or self-care (01) ==
LOC: BIMLAB 11:06
PROVIDERS: PCP Internal Medicine; Referring Provider Urology; Visit Provider Urology
DX: N40.1 Benign prostatic hyperplasia with lower urinary tract symptoms (principal)
CPT/HCPCS: 36415; 84153

== ENCOUNTER → 2024-07-20 | Outpatient (CLI) | payer MEDICARE, BC, SELFPAY ==
[2024-07-20 13:20] LABS: AST(SGOT) 13 U/L (15-37); Alanine Aminotransfer ALT/SGPT 22 U/L (16-61); Albumin, Serum 3.5 g/dL (3.2-5.0); Alkaline Phosphatase 133 U/L (45-117); Bilirubin, Direct 0.12 mg/dL (0.00-0.30); Cholesterol 178 mg/dL (200); Globulin 3.5 g/dL (2.2-4.2); High Density Lipoprotein 44 mg/dL; Triglycerides 126 mg/dL; Very Low Density Lipoprotein 25 mg/dL (5-40)
== END | disposition home or self-care (01) ==
LOC: BIMLAB 09:10
PROVIDERS: PCP Internal Medicine; Referring Provider Nurse Practitioner Family; Visit Provider Nurse Practitioner Family
DX: E78.00 Pure hypercholesterolemia, unspecified (principal)
CPT/HCPCS: 36415; 80061; 80076

== ENCOUNTER → 2024-07-27 | Outpatient (CLI) | payer MEDICARE, BC, SELFPAY ==
--- NOTE | 2024-07-27 08:00 | ECHOD_ITS ---
Reason For Study: MURMUR Procedure This was a 2D Doppler, Color Flow transthoracic echocardiogram. Exam performed in department. Left Ventricle Normal LV size. Mild concentric left ventricular hypertrophy. Left ventricular systolic function is normal. The left ventricular ejection fraction is 55 %. No regional wall motion abnormalities noted. Right Ventricle Normal RV size. Normal systolic function. Atria Normal left atrium. Normal right atrium. Mitral Valve Normal mitral valve. Tricuspid Valve Normal tricuspid valve. Aortic Valve Trisinus/trileaflet aortic valve. Pulmonic Valve Normal pulmonic valve. Great Vessels Normal aortic root. The pulmonary artery is normal size. Inferior vena cava collapse with respiration. Pericardium/Pleural No pericardial effusion. MMode/2D Measurements & Calculations LVIDd: 5.1 cm IVSd: 1.2 cm LVOT diam: 2.0 cm LVIDs: 3.2 cm LVPWd: 1.2 cm LVOT area: 3.0 cm2 FS: 37.9 % Ao root diam: 3.5 cm asc Aorta Diam: 3.6 cm LAV(MOD-bp): 52.1 ml LAV(MOD-bp) Indexed: 26.1 ml/m2 LAV(MOD-sp2): 59.0 ml LAV(MOD-sp4): 44.2 ml SV(MOD-sp4): 31.6 ml SV(sp4-el): 37.6 ml LVAd ap4: 30.7 cm2 LVLd ap4: 8.9 cm EDV(MOD-sp4): 87.1 ml EDV(sp4-el): 89.8 ml LVAs ap4: 22.2 cm2 LVLs ap4: 8.0 cm ESV(MOD-sp4): 55.5 ml ESV(sp4-el): 52.2 ml EF(MOD-sp4): 36.3 % EF(sp4-el): 41.9 % LA A4 area: 17.3 cm2 LA dimension(2D): 4.2 cm RA A4 area: 17.3 cm2 TAPSE: 2.6 cm Time Measurements MV dec time: 0.19 sec Doppler Measurements & Calculations MV E max ricco: 51.5 cm/sec Lat Peak E' Ricco: 8.5 cm/sec Med Peak E' Ricco: 8.5 cm/sec MV A max ricco: 55.8 cm/sec E/E' lat: 6.1 E/E' med: 6.1 MV E/A: 0.92 MV V2 max: 75.6 cm/sec Ao V2 max: 111.2 cm/sec MV max P.3 mmHg MV dec slope: 277.2 cm/sec2 Ao max P.0 mmHg MV V2 mean: 47.1 cm/sec Ao V2 mean: 79.2 cm/sec MV mean P.0 mmHg Ao mean P.8 mmHg MV V2 VTI: 20.5 cm Ao V2 VTI: 25.8 cm AV (velocity ratio): 0.81 MVA(VTI): 3.1 cm2 JUWAN(I,D): 2.4 cm2 JUWAN(V,D): 2.4 cm2 LV V1 max: 88.8 cm/sec SV(LVOT): 63.1 ml PA V2 max: 78.0 cm/sec LV V1 max P.2 mmHg PA V2 mean: 56.8 cm/sec LV V1 mean P.5 mmHg LV V1 mean: 56.9 cm/sec LV V1 VTI: 20.8 cm PI end-d ricco: 90.0 cm/sec ECHO/Echo Complete Interpretation Summary Normal LV size. Left ventricular systolic function is normal. The left ventricular ejection fraction is 55 %. Mild concentric left ventricular hypertrophy. Structurally normal valves. Ordering Physician: Fiona Cruz Referring Physician: Fiona Cruz Performed By: Katy Hennessy and Student
== END | disposition home or self-care (01) ==
LOC: CVS 07:59
PROVIDERS: PCP Internal Medicine; Referring Provider Physician Assistant Medical; Visit Provider Physician Assistant Medical
DX: I34.0 Nonrheumatic mitral (valve) insufficiency (principal)
CPT/HCPCS: 93306

== ENCOUNTER → 2025-02-09 | Outpatient (CLI) | payer MEDICARE, BC, SELFPAY ==
[2025-02-09 16:36] LABS: PSA,Total- Diagnostic 6.71 ng/mL (0.00-4.00)
== END | disposition home or self-care (01) ==
LOC: LAB 13:19
PROVIDERS: PCP Internal Medicine; Referring Provider Nurse Practitioner; Visit Provider Nurse Practitioner
DX: R97.20 Elevated prostate specific antigen [PSA] (principal)
CPT/HCPCS: 36415; 84153

== ENCOUNTER → 2025-06-07 | Outpatient (CLI) | payer MEDICARE, BC, SELFPAY ==
--- OUTSIDE RECORDS SUMMARY | 2025-06-07 07:05 | XMS RPT_ITS | CCD ---
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 Name Role Phone Kaleigh Gould Primary Care Provider [phone] STEPHANIE ASTORGA Referring Unavailable KALEIGH GOULD Primary Care Unavailable STEPHANIE ASTORGA Attending Unavailable KALEIGH GOULD Primary Care Unavailable MARK VICE PRESIDENT OF BUSINESS DEVELOPMENT-MOLDED GOODS SPOT PICKER, ALTHEA Primary Care Physician MARK VICE PRESIDENT OF BUSINESS DEVELOPMENT-MOLDED GOODS SPOT PICKER, ALTHEA Attending Unavaila starla TOUSSAINT VICE PRESIDENT OF BUSINESS DEVELOPMENT-MOLDED GOODS SPOT PICKER, ALTHEA Primary Care Unavaila starla Toussaint SENIOR POLICY ASSOCIATE, SENIOR POLICY ASSOCIATE-C Althea Primary Care Provider [phone] Mark SENIOR POLICY ASSOCIATE, SENIOR POLICY ASSOCIATE-C Althea Referring Provider Dr. Chuckie Keen Attending Provider [phone] Dr. Geena Burroughs Attending Provider [phone] Mark SENIOR POLICY ASSOCIATE, SENIOR POLICY ASSOCIATE-C Althea Primary Care Provider [phone] Mark SENIOR POLICY ASSOCIATE, SENIOR POLICY ASSOCIATE-C Althea Referring Provider Dr. Geena Burroughs Primary Care Provider Dr. Geena Burroughs Referring Provider [phone] Mark SENIOR POLICY ASSOCIATE, SENIOR POLICY ASSOCIATE-C Althea Primary Care Provider [phone] Mark SENIOR POLICY ASSOCIATE, SENIOR POLICY ASSOCIATE-C Althea Referring Provider Dr. Geena Burroughs Attending Provider [phone] Dr. Geena Burroughs Primary Care Provider Dr. Geena Burroughs Referring Provider [phone] Dr. Kaleigh Sánchez Attending Provider Dr. Geena Burroughs Primary Care Provider Dr. Tripp Pennington Referring Provider [phone] Dr. Geena Burroughs Attending Provider [phone] Dr. Geena Burroughs Referring Provider [phone] Dr. Geena Burroughs Primary Care Provider Dr. Geena Burroughs Referring Provider [phone] TAYLOR Mccoy Attending Provider Dr. Geena Burroughs Attending Provider [phone] Dr. Geena Burroughs MD Primary Care Provider [phone] Mandie lOguin Attending Provider Mandie Olguin Referring Provider Dr. Geena Burroughs MD Attending Provider Dr. Geena Burroughs MD Referring Provider Fiona Aparicio Attending Unavail able Fiona Aparicio Referring Unavail able Heike, Geena Primary Care Unavailable Heike, Geena Primary Care Unavailable Roof SENIOR POLICY ASSOCIATE, Francisco H Attending Unavailable Roof SENIOR POLICY ASSOCIATE, Francisco H Referring Unavailable ExiraMandie Attending Unavailable ExiraMandie Referring Unavailable Heike, Geena Primary Care Unavailable Heike, Geena Primary Care Unavailable Heike, Geena Attending Unavailable Upton, Geena Referring Unavailable Fiona Aparicio Attending Unavail able Upton, Geena Referring Unavailable Heike, Geena Primary Care Unavailable Joanne Wesley Attending Unavailable Heike, Geena Primary Care Unavailable Heike, Geena Primary Care Unavailable Upton, Geena Attending Unavailable Upton, Geena Referring Unavailable Medications Current Medications Medication Drug Class(es) Dates Sig (Normalized) Sig (Original) finasteride 5 mg oral tablet (11 sources) 5-alpha Reductase Inhibitor Start: 07-19-2023 take 1 tablet by mouth once daily Finasteride (Proscar) 5 mg tablet Active 5 mg PO DAILY July 19, 2023 12:00am Start: 08-18-2018 End: 09-22-2019 take 1 tablet by mouth once daily Finasteride (Proscar) 5 mg tablet Discontinued 5 mg PO DAILY August 18, 2018 1:00am September 22, 2019 11:52am ibuprofen 200 mg oral tablet (9 sources) Nonsteroidal Anti-inflammatory Drug Start: 05-22-2025 take 1 tablet by mouth every six hours as needed Ibuprofen (Pain Relief (Ibuprofen)) 200 mg tablet Active 200 mg PO EVERY 6 HOURS as needed May 22, 2025 12:00am Start: 04-14-2021 End: 12-31-2022 Ibuprofen 400 mg Tablet Disc ontinued 400 mg PO EVERY 4 HOURS NEEDED as needed for Pain Score 1-10/Temp > 100.7 F 0 0 April 14, 2021 12:00am December 31, 2022 4:26pm Start: 04-14-2021 End: 12-31-2022 take 400 mg by mouth every four hours as needed Ibuprofen Discontinued 400 MG PO EVERY 4 HOURS NEEDED 0 April 13, 2021 11:00pm December 31, 2022 3:26pm pravastatin sodium 40 mg oral tablet (20 sources) HMG-CoA Reductase Inhibitor Start: 02-06-2021 End: 02-19-2025 take 1 tablet by mouth at bedtime Pravastatin 40 mg tablet Active 40 mg PO AT BEDTIME 90 3 February 19, 2025 11:13am Start: 07-18-2020 End: 02-06-2021 take 2 tablets by mouth at bedtime Pravastatin 20 mg tablet Discontinued 40 mg PO AT BEDTIME 90 3 September 23, 2020 2:59pm February 06, 2021 11:59am Start: 07-18-2020 End: 02-06-2021 take 40 mg by mouth at bedtime Pravastatin Discontinue d 40 MG PO AT BEDTIME 90 September 23, 2020 1:59pm February 06, 2021 10:59am Start: 10-12-2017 End: 10-13-2017 Pravastatin 20 mg tablet Discontinued PO 90 90 0 October 12, 2017 1:00am October 13, 2017 1:07pm Start: 05-26-2017 End: 10-12-2017 take 1 tablet by mouth at bedtime Pravastatin 40 MG tablet Discontinued 40 mg PO AT BEDTIME 90 3 September 17, 2017 2:15pm October 12, 2017 6:12pm Start: 03-29-2017 End: 07-18-2020 take 1 tablet by mouth at bedtime Pravastatin 20 mg tablet Discontinued 20 mg PO AT BEDTIME 90 3 November 09, 2019 11:09am July 18, 2020 12:03pm Comment on above: Take 20 mg by mouth once daily. [place] Low Dose Aspirin (1 source) Start: 04-12-2020 take 1 mg by mouth once daily [facility] Low Dose Aspirin mg =, Oral, qDay, 0 Refill(s) Start Date: 04/12/20 Status: Ordered tamsulosin hydrochloride 0.4 mg oral capsule (20 sources) alpha-Adrenergic Mary Jane Start: 08-05-2022 take 1 capsule by mouth every other day Tamsulosin 0.4 mg capsule Active 0.4 mg PO every other day August 05, 2022 12:00am Start: 04-06-2022 tamsulosin (FL OMAX) 0.4 mg once daily. 0 04/06/2022 Active Start: 01-28-2022 tamsulosin 0.4 mg oral capsule 0 Refill(s) Start Date: 01/28/22 Status: Ordered Start: 04-14-2021 End: 09-01-2021 take 1 capsule by mouth once daily Tamsulosin 0.4 mg Capsule Discontinued 0.4 mg PO DAILY@1730 30 0 April 14, 2021 12:00am September 01, 2021 3:43pm Start: 08-18-2018 End: 09-22-2019 take 1 capsule by mouth once daily as needed Tamsulosin 0.4 mg capsule Discontinued 0.4 mg PO DAILY as needed 90 90 0 August 18, 2018 5:29pm September 22, 2019 11:52am Start: 10-12-2017 End: 08-18-2018 take 1 capsule by mouth every twenty-four hours Tamsulosin 0.4 mg capsule,extended release 24hr Discontinued PO 90 90 0 October 12, 2017 1:00am August 18, 2018 5:30pm Start: 10-12-2017 End: 08-18-2018 Tamsulosin Discontinued PO 9 0 90 October 12, 2017 12:00am August 18, 2018 4:30pm Comment on above: once daily. Completed/Discontinued Medications Medication Drug Class(es) Dates Sig (Normalized) Sig (Original) acetaminophen 650 mg rectal suppository (8 sources) Start: 04-14-2021 End: 09-01-2021 Acetaminophen 650 mg Suppository Discontinued 650 mg RC EVERY 4 HOURS NEEDED as needed for Pain Score 1-10/Temp > 100.7 F 0 0 April 14, 2021 12:00am September 01, 2021 3:42pm Start: 04-14-2021 End: 09-01-2021 Acetaminophen Discontinued 6 50 MG RC EVERY 4 HOURS NEEDED 0 April 13, 2021 11:00pm September 01, 2021 2:42pm acetaminophen 325 mg / HYDROcodone bitartrate 7.5 mg oral tablet (20 sources) Opioid Agonist Start: 04-02-2020 End: 09-09-2020 Hydrocodone-Acetaminophen 1 EACH tablet Discontinued 1 NMA PO EVERY 4 HOURS NEEDED as needed for Pain Or Fever 30 0 April 02, 2020 September 09, 2020 11:26am Fracture of left calcaneus Unspecified fracture of left calcaneus, initial encounter for closed fracture Start: 04-02-2020 End: 04-07-2020 Hydrocodone-Acetaminophen 1 EACH tablet Discontinued 1 NMA PO EVERY 4 HOURS NEEDED as needed for Pain Or Fever 30 5 0 April 02, 2020 April 06, 2020 12:00am April 07, 2020 12:02am Fracture of right calcaneus Unspecified fracture of right calcaneus, initial encounter for closed fracture Start: 04-02-2020 End: 09-09-2020 Hydrocodone-Acetaminophen Di scontinued 1 EACH PO EVERY 4 HOURS NEEDED April 02, 2020 September 09, 2020 10:26am Start: 04-02-2020 End: 04-07-2020 Hydrocodone-Acetaminophen Di scontinued 1 EACH PO EVERY 4 HOURS NEEDED 30 5 April 02, 2020 April 06, 2020 11:02pm Start: 05-26-2017 End: 10-12-2017 Hydrocodone-Acetaminophen 1 TABLET tablet Discontinued 1 - 2 {tbl} PO EVERY 4 HOURS NEEDED as needed for Pain May 26, 2017 12:00am October 12, 2017 6:12pm Start: 05-26-2017 End: 10-12-2017 take 1 tablet by mouth every four hours as needed Hydrocodone-Acetaminophen Discontinued 1 - 2 TABLET PO EVERY 4 HOURS NEEDED May 25, 2017 11:00pm October 12, 2017 5:12pm ALPRAZolam 0.25 mg oral tablet (7 sources) Benzodiazepine Start: 10-14-2022 End: 12-31-2022 take 1 tablet by mouth once daily as needed for anxiety Alprazolam (Xanax) 0.25 mg tablet Discontinued 0.25 mg PO DAILY as needed for anxiety October 14, 2022 1:00am December 31, 2022 4:26pm amoxicillin 875 mg / clavulanate 125 mg oral tablet (3 sources) Penicillin-class Antibacterial Start: 09-23-2023 End: 10-03-2023 Amoxicillin-Pot Clavulanate 875-125 mg tablet Discontinued 1 {tbl} PO Q12H 20 10 September 23, 2023 1:00am October 02, 2023 1:00am October 03, 2023 1:05am Acute sinusitis, unspecified Start: 09-23-2023 End: 10-03-2023 take 1 tablet by mouth every twelve hours Amoxicillin-Pot Clavulanate Discontinued 1 TABLET PO Q12H 20 September 23, 2023 12:00am October 03, 2023 12:05am apixaban 5 mg oral tablet (5 sources) Factor Xa Inhibitor Start: 12-21-2022 End: 05-19-2023 take 2 tablets by mouth twice daily, then take 1 tablet by mouth twice daily Apixaban (Eliquis) 5 mg tablet Discontinued 5 mg PO TWICE A DAY December 21, 2022 12:00am May 19, 2023 10:54am 10 mg twice a day for the first week. Then 5 mg twice a day. aspirin 81 mg chewable tablet (15 sources) Platelet Aggregation Inhibitor, Nonsteroidal Anti-inflammatory Drug Start: 07-19-2023 End: 07-21-2024 take 1 tablet by mouth once daily Aspirin 81 mg tablet,chewable Discontinued 81 mg PO DAILY July 19, 2023 12:00am July 21, 2024 11:32am Start: 05-26-2017 End: 12-31-2022 take 1 tablet by mouth once daily Aspirin 81 MG tablet,chewable Discontinued 81 mg PO DAILY@0800 May 26, 2017 12:00am December 31, 2022 4:26pm Comment on above: Take 81 mg by mouth once daily. ciprofloxacin 500 mg oral tablet (8 sources) Quinolone Antimicrobial Start: 08-09-20 End: 09-22-20 take 1 tablet by mouth twice daily Ciprofloxacin Hcl 500 MG tablet Discontinued 500 mg PO TWICE A DAY 20 0 August 09, 2019 1:00am September 22, 2019 11:52am escitalopram 5 mg oral tablet (20 sources) Serotonin Reuptake Inhibitor Start: 05-19-20 End: 01-03-20 take 1 tablet by mouth once daily Escitalopram Oxalate 5 mg tablet Discontinued 5 mg PO DAILY 90 0 June 20, 2024 12:31pm January 02, 2025 4:53pm Start: 10-14-2022 End: 05-19-2023 take 1 tablet by mouth once daily Escitalopram Oxalate (Lexapro) 10 mg tablet Discontinued 10 mg PO DAILY 30 5 December 03, 2022 2:08pm May 19, 2023 11:28am fluticasone propionate 0.05 mg/actuat metered dose nasal spray (8 sources) Corticosteroid Start: 10-13-2017 End: 05-22-2025 Fluticasone Propionate (Flonase Allergy Relief) 50 mcg/actuation spray,suspension Discontinued 50 ug INTRANASAL TWICE A DAY as needed for Allergies October 13, 2017 1:00am May 22, 2025 1:23pm lisinopril 5 mg oral tablet (20 sources) Angiotensin Converting Enzyme Inhibitor Start: 03-29-2017 End: 08-11-2024 Lisinopril 5 mg tablet Discontinued 0 .ROUTE .COMPLEX 90 3 July 23, 2023 8:32am August 11, 2024 5:11pm TAKE 1 TABLET DAILY Comment on above: Take 5 mg by mouth o nce daily. meloxicam 15 mg oral tablet (9 sources) Nonsteroidal Anti-inflammatory Drug Start: 08-05-2022 End: 12-31-2022 take 1 tablet by mouth once daily as needed Meloxicam 15 mg tablet Discontinued 15 mg PO DAILY as needed August 05, 2022 12:00am December 31, 2022 4:27pm Start: 07-04-2022 End: 08-03-2022 take 1 tablet by mouth once daily meloxicam (MOBIC) 15 mg tablet Take 1 tablet by mouth once daily. 30 tablet 1 07/04/2022 08/03/2022 Active Comment on above: Take 1 tablet by escobar once daily. methylPREDNISolone 4 mg oral tablet (8 sources) Corticosteroid Start: 2022 End: 2022 take 1 tablet by mouth once Methylprednisolone (Medrol (Isidro)) 4 mg tablets,dose pack Discontinued 4 mg PO per package directions 21 6 September 23, 2023 1:00am September 28, 2023 1:00am September 29, 2023 1:05am Start: 12-21-2022 End: 12-31-2022 take 1 tablet by mouth once daily Methylprednisolone (Medrol (Isidro)) 4 mg tablets,dose pack Discontinued 4 mg PO DAILY December 21, 2022 12:00am December 31, 2022 4:27pm metroNIDAZOLE 500 mg oral tablet (8 sources) Nitroimidazole Antimicrobial Start: 08-09-2019 End: 09-22-2019 take 1 tablet by mouth every eight hours Metronidazole 500 MG tablet Discontinued 500 mg PO Q8H August 09, 2019 1:00am September 22, 2019 11:52am montelukast 10 mg oral tablet (3 sources) Leukotriene Receptor Antagonist Start: 09-23-2023 End: 11-22-2023 take 1 tablet by mouth once daily in the evening Montelukast 10 mg tablet Discontinued 10 mg PO EVERY EVENING September 23, 2023 1:00am November 22, 2023 12:13pm nystatin 100 unt/mg topical ointment (5 sources) Polyene Antifungal Start: 12-21-2022 End: 07-19-2023 Nystatin 100,000 unit/gram ointment Discontinued 1 NMA TOPICAL TWICE A DAY December 21, 2022 12:00am July 19, 2023 1:44pm Start: 12-21-2022 End: 07-19-2023 Nystatin Discontinued 1 APPL IC TOPICAL TWICE A DAY December 20, 2022 11:00pm July 19, 2023 12:44pm [place]-3 Fatty Acids (6 sources) Start: 04-13-2021 End: 09-01-2021 take 1000 mg by mouth once daily [place]-3 Fatty Acids Discontinued 1000 MG PO DAILY April 13, 2021 12:00am September 01, 2021 3:43pm Start: 04-13-2021 End: 09-01-2021 take 1000 mg by mouth once daily [place]-3 Fatty Acids Discontinued 1000 MG PO DAILY April 12, 2021 11:00pm September 01, 2021 2:43pm [place]-3 Fatty Acids Capsule (2 sources) Start: 04-13-2021 End: 09-01-2021 take 1 capsule by mouth once daily [place]-3 Fatty Acids Capsule Discontinued 1000 mg PO DAILY April 13, 2021 12:00am September 01, 2021 3:43pm ondansetron 4 mg disintegrating oral tablet (8 sources) Serotonin-3 Receptor Antagonist Start: 05-26-2017 End: 10-12-2017 take 1 tablet by mouth every eight hours as needed for nausea Ondansetron 4 MG tablet Discontinued 4 mg PO EVERY 8 HOURS NEEDED as needed for Nausea May 26, 2017 12:00am October 12, 2017 6:12pm 24 hr oxybutynin chloride 5 mg extended release oral tablet (16 sources) Cholinergic Muscarinic Antagonist Start: 10-12-2017 End: 08-18-2018 take 1 tablet by mouth every twenty-four hours Oxybutynin Chloride 5 mg tablet extended release 24 hr Discontinued PO 90 90 0 October 12, 2017 1:00am August 18, 2018 5:30pm Start: 10-12-2017 End: 09-22-2019 take 1 tablet by mouth once daily as needed Oxybutynin Chloride 5 mg tablet extended release 24hr Discontinued 5 mg PO DAILY as needed 90 90 0 August 18, 2018 5:29pm September 22, 2019 11:52am Problems Active Problems Problem Classification Problem Date Documented Da te Episodic/Chronic Administrative/social admission (5 sources) Persons encountering health services in other specified circumstances; Translations: [Other reasons for seeking consultation] 10-14-2022 Episodic Allergic reactions (5 sources) Contact dermatitis; Translations: [Unspecified contact dermatitis, unspecified cause] 12-21-2022 Episodic Anxiety disorders (7 sources) Anxiety state; Translations: [Anxiety disorder, unspecified] 04-12-2020 Chronic Calculus of urinary tract (17 sources) Kidney stone; Translations: [Vesicoureteric junction calculus] 04-23-2021 Episodic Coronary atherosclerosis and other heart disease (20 sources) Coronary arteriosclerosis; Translations: [Atherosclerotic heart disease of [place] coronary artery without angina pectoris] Onset: 07-21-2024 Chronic Comment on above: Mild per heart cath 2016 Diseases of white blood cells (8 sources) Leukocytosis; Translations: [Elevated white blood cell count, unspecified] 04-22-2021 Chronic Disorders of lipid metabolism (12 sources) Hyperlipidemia; Translations: [Pure hypercholesterolemi a] Onset: 08-11-2024 10-14-2020 Chronic Essential hypertension (18 sources) Hypertensive disorder; Translations: [Essential hypertension] Onset: 07-21-2024 03-29-2017 Chronic Fracture of lower limb (8 sources) Fracture of calcaneus; Translations: [Unspecified fracture of left calcaneus, initial encounter for closed fracture] 10-14-2022 Episodic Heart valve disorders (20 sources) Mitral valve prolapse; Translations: [Nonrheumatic mitral (valve) prolapse] Onset: 08-18-2024 Chronic Hyperplasia of prostate (17 sources) Benign prostatic hyperplasia; Translations: [Benign prostatic hyperplasia without lower urinary tract symptoms] Onset: 07-24-2014 07-24-2014 Chronic Immunizations and screening for infectious disease (3 sources) Encounter for immunization; Translations: [Need for prophylactic vaccination and inoculation against unspecified single disease] 10-14-2022 Episodic Malaise and fatigue (4 sources) Fatigue; Translations: [Other fatigue] 02-07-2023 Episodic Mood disorders (6 sources) Major depressive disorder, single episode, moderate; Translations: [Major depressive affective disorder, single episode, moderate] 10-14-2022 Chronic Osteoarthritis (1 source) Arthritis of right subtalar joint; Translations: [Primary osteoarthritis, right ankle and foot] Chronic Other connective tissue disease (1 source) Presence of left artificial shoulder joint; Translations: [Shoulder joint replacement] 12-31-2022 Chronic Other connective tissue disease (1 source) Pain in left foot; Translations: [Pain in left foot] Episodic Other connective tissue disease (1 source) Pain in left foot; Translations: [Pain in left foot] Onset: 06-18-2022 Episodic Other connective tissue disease (4 sources) Muscle pain; Translations: [Myalgia, unspecified site] 02-07-2023 Episodic Other diseases of kidney and ureters (8 sources) Hydronephrosis; Translations: [Unspecified hydronephrosis] 10-14-2022 Episodic Other lower respiratory disease (4 sources) Cough; Translations: [Cough] 02-07-2023 Episodic Other non-traumatic joint disorders (5 sources) Pain in right shoulder; Translations: [Pain in joint, shoulder region] 10-14-2022 Episodic Other non-traumatic joint disorders (3 sources) Pain in left knee; Translations: [Left knee pain] Onset: 05-22-2025 05-22-2025 Episodic Other skin disorders (1 source) Rash and other nonspecific skin eruption; Translations: [Rash and other nonspecific skin eruption] 12-31-2022 Episodic Other upper respiratory infections (4 sources) Acute sinusitis; Translations: [Acute sinusitis, unspecified] 09-23-2023 Episodic Phlebitis; thrombophlebitis and thromboembolism (6 sources) Acute deep venous thrombosis of upper extremity; Translations: [Acute embolism and thrombosis of deep veins of left upper extremity] 12-21-2022 Episodic Pulmonary heart disease (8 sources) Pulmonary hypertension, unspecified; Translations: [Mild pulmonary hypertension] 10-12-2017 Chronic Residual codes; unclassified (9 sources) Obstructive sleep apnea syndrome; Translations: [Obstructive sleep apnea (adult) (pediatric)] 10-14-2020 Chronic Residual codes; unclassified (6 sources) Obstructive sleep apnea (adult) (pediatric); Translations: [Obstructive sleep apnea (adult)(pediatric)] 10-14-2022 Chronic Unclassified (2 sources) Patient encounter status 04-12-2020 Varicose veins of lower extremity (1 source) Varicose veins of lower extremity 04-30-2021 Episodic Viral infection (4 sources) Disease caused by 2019-nCoV; Translations: [COVID-19] 01-30-2023 Episodic Past or Other Problems Problem Classification Problem Date Documented Date Episodic/Chronic Genitourinary symptoms and ill-defined conditions (4 sources) Lower urinary tract symptoms; Translations: [Unspecified symptoms and signs involving the genitourinary system] Onset: 07-24-2014 07-24-2014 Episodic Inflammatory conditions of male genital organs (4 sources) Prostatitis; Translations: [Inflammatory disease of prostate, unspecified] Onset: 09-20-2014 09-20-2014 Episodic Other screening for suspected conditions (not mental disorders or infectious disease) (8 sources) Raised prostate specific antigen; Translations: [Elevated prostate specific antigen [PSA]] Onset: 07-24-2014 07-24-2014 Episodic Results Test Name Value Interpretation Reference Range Facility Internal Medicine Office Vis luis carlos 05-21-2025 Internal Medicine Office Visit [facility] [address] [place] [address] [place] [address] OFFICE VISIT Date of Service: 05/22/25 MR#: [id number] Acct: [id number] Name: DORY DARLING Rep #: [id number] : [id number] Provider: Dr. Geena sheehan MD Age/Sex: 69/M Location: [facility] [place] Status: Signed Intake Vital Signs 07/21/24 11:06 05/22/25 13:22 Height 5 ft 9 in 5 ft 9 in Weight: 203 lb BMI 29.9 BP 124/80 H Blood Pressure Location Lt brachial Position Sitting Respiration 18 Pulse 90 Pulse Source Monitor Temp 98.4 F Temp Source Temporal Pulse Oximetry (%) 97 Oxygen Delivery Method room air Intake Visit Reasons: Left knee Chief Complaint: Left knee Is patient in pain?: Yes (8 left knee ) Allergies No Known Allergies Allergy (Verified 05/22/25 13:22) Medications ???Medication ???Instructions ???Recorded ???Confirmed ???Type tamsulosin 0.4 mg capsule 0.4 mg PO Q OTHER DAY 08/05/22 History finasteride 5 mg tablet (Proscar) 5 mg PO DAILY 07/19/23 05/22/25 H istory lisinopril 5 mg tablet See Rx Instructions .Route 4 05/22/25 Rx .COMPLEX #90 tabs escitalopram oxalate 5 mg tablet 5 mg PO DAILY #90 tabs 01/02/25 Rx pravastatin 40 mg tablet 40 mg PO QHS #90 TABLETS 02/19/25 05/22/25 Rx ibuprofen 200 mg tablet (Pain 200 mg PO Q6H PRN 05/22/25 5 History Relief (ibuprofen)) Have you fallen in the past year?: Yes (x2) Nurse's Note: pt reports that he has been having sharp pain and cracking/popping sounds in his left knee for the past 3 weeks that stated to occur during a jose project the patient has been working on. [facility] Medical History DVT (deep venous thrombosis) COVID-19 Fracture Flank hernia Injury of head and neck History of stress test Cancer Kidney stones Intractable pain Diverticulitis Left calcaneal fracture Pure hypercholesterolemia LINDA on CPAP BPH (benign prostatic hyperplasia) GERD (gastroesophageal reflux disease) Nonrheumatic tricuspid valve regurgitation Non-rheumatic mitral regurgitation Nonrheumatic mitral (valve) prolapse Atherosclerotic heart disease of twenty[place]nine [place] coronary artery without angina pectoris CAD (coronary artery disease) Essential hypertension Mild pulmonary hypertension Mild tricuspid regurgitation Mild mitral regurgitation Mitral valve prolapse Surgical History S/p reverse total shoulder arthroplasty History of mandibular surgery H/O eye surgery S/P ORIF (open reduction internal fixation) fracture Radial nerve laceration History of bilateral cataract extraction History of umbilical hernia repair History of right inguinal hernia repair Family History Father , age 70, multiple MD Myocardial infarction Cancer skin CAD (coronary artery disease) Mother CHF (congestive heart failure) Hypertension Brother Myocardial infarction, Onset Age: 44 Heart disease Grandfather CVA (cerebral vascular accident) Sister Cancer Bone CA Uncle Diabetes Social History household members: spouse current occupational status: retired 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 He has concerns about left knee pain. He reports that it feels like it wants to give out on him. He reports he was working on a roof when he felt something pop. He states it was sore before that, and actually felt better briefly after the pop, but soon after started to feel worse. He reports the pain is primarily in his medial knee which is sharp. He states, however, he feels pain throughout the knee. He reports he feels a tightness under his knee as well. He reports the pop was about 2 weeks ago, but he has had mild problems for a couple of years. He reports it feels like his knee is unstable. He will wear a brace/hayley bandage as well as knee pad which helps. He has tried some PRN ibuprofen and ice which does help. He rates his pain 8-9/10 currently. He states it feels like it is bone on bone. He has been having some associated swelling. He denies any redness or bruising. He has had recurrent falls, but states it isn't always related (more content not included)... Normal [facility] PSA,Total- Diagnosticon 05-0 PSA, DIAGNOSTIC 6.71 ng/mL High 0.00-4.00 [facility] Comment on above: Result Comment: This test was performed using the [facility] [employer] tPSA method. Measured values of a patient??sample can vary depending on the testing procedure used. PSA values determined on patient samples by different testing procedures cannot be used interchangeably. If there is a change in PSA assays while monitoring therapy, sequential testing should be performed to confirm baseline values. Performed By: #### L [id number] #### [facility] [address] [place], [address] Echo Completeon 07-27-2024 Echo [facility] [address] [place] [address] Echo Complete 07/27/24 0812 MR#: [id number] Acct: [id number] Name: DORY DARLING Rep #: [id number] : 1955 68 From: Félix Rubio MD Attending Dr: TAYLOR Coleman Status: REG CLI Ordering Dr: Fiona Cruz Date: 07/05 01/25 Location: [facility] Sex: M C Admitted: Reason For Study: MURMUR Procedure This was a 2D Doppler, Color Flow transthoracic echocardiogram. Exam performed in department. Left Ventricle Normal LV size. Mild concentric left ventricular hypertrophy. Left ventricular systolic function is normal. The left ventricular ejection fraction is 55 %. No regional wall motion abnormalities noted. Right Ventricle Normal RV size. Normal systolic function. Atria Normal left atrium. Normal right atrium. Mitral Valve Normal mitral valve. Tricuspid Valve Normal tricuspid valve. Aortic Valve Trisinus/trileaflet aortic valve. Pulmonic Valve Normal pulmonic valve. Great Vessels Normal aortic root. The pulmonary artery is normal size. Inferior vena cava collapse with respiration. Pericardium/Pleural No pericardial effusion. MMode/2D Measurements Calculations LVIDd: 5.1 cm IVSd: 1.2 cm LVOT diam: 2.0 cm LVIDs: 3.2 cm LVPWd: 1.2 cm LVOT area: 3.0 cm2 FS: 37.9 % Ao root diam: 3.5 cm asc Aorta Diam: 3.6 cm LAV(MOD-bp): 52.1 ml LAV(MOD-bp) Indexed: 26.1 ml/m2 LAV(MOD-sp2): 59.0 ml LAV(MOD-sp4): 44.2 ml SV(MOD-sp4): 31.6 ml SV(sp4-el): 37.6 ml LVAd ap4: 30.7 cm2 LVLd ap4: 8.9 cm EDV(MOD-sp4): 87.1 ml EDV(sp4-el): 89.8 ml LVAs ap4: 22.2 cm2 LVLs ap4: 8.0 cm ESV(MOD-sp4): 55.5 ml ESV(sp4-el): 52.2 ml EF(MOD-sp4): 36.3 % EF(sp4-el): 41.9 % LA A4 area: 17.3 cm2 LA dimension(2D): 4.2 cm RA A4 area: 17.3 cm2 TAPSE: 2.6 cm Time Measurements MV dec time: 0.19 sec Doppler Measurements Calculations MV E max param: 51.5 cm/sec Lat Peak E' Param: 8.5 cm/sec Med Peak E' Param: 8.5 cm/sec MV A max param: 55.8 cm/sec E/E' lat: 6.1 E/E' med: 6.1 MV E/A: 0.92 MV V2 max: 75.6 cm/sec Ao V2 max: 111.2 cm/sec MV max P.3 mmHg MV dec slope: 277.2 cm/sec2 Ao max P.0 mmHg MV V2 mean: 47.1 cm/sec Ao V2 mean: 79.2 cm/sec MV mean P.0 mmHg Ao mean P.8 mmHg MV V2 VTI: 20.5 cm Ao V2 VTI: 25.8 cm AV (velocity ratio): 0.81 MVA(VTI): 3.1 cm2 JUWAN(I,D): 2.4 cm2 JUWAN(V,D): 2.4 cm2 LV V1 max: 88.8 cm/sec SV(LVOT): 63.1 ml PA V2 max: 78.0 cm/sec LV V1 max P.2 mmHg PA V2 mean: 56.8 cm/sec LV V1 mean P.5 mmHg LV V1 mean: 56.9 cm/sec LV V1 VTI: 20.8 cm PI end-d param: 90.0 cm/sec ECHO/Echo Complete Interpretation Summary Normal LV size. Left ventricular systolic function is normal. The left ventricular ejection fraction is 55 %. Mild concentric left ventricular hypertrophy. Structurally normal valves. Ordering Physician: Fiona Cruz Referring Physician: Fiona Cruz Performed By: Katy Hennessy and Student 07/27/24951 Date Féilx Rubio MD CC: Dr. Geena Burroughs MD; TAYLOR Coleman Date Dictated: 10/24/24 0812 Date Transcribed: 07/27/24951 [employer] Agent: Signed Normal [facility] Cardiology Visit Reporton Cardiology Visit Report [facility] [address] [place] [address] OFFICE VISIT Date of Service: 07/21/24 MR#: [id number] Acct: [id number] Name: DORY DARLING Rep #: [id number] : 1955 Provider: TAYLOR Lanza Age/Sex: 68/M Location: [facility] Status: Signed HPI HPI History of Present Illness Details: Dory Darling is a 68 year old white male who presents today for outpatient cardiovascular follow-up of his history of CAD (nonobstructive), mitral valve prolapse/insufficiency, hypertension and hyperlipidemia. From a cardiac standpoint, patient is doing well. He does not have any chest discomfort/heaviness/ti ghtness. His exercise tolerance is stable for his age. He does not have any worsening symptoms of shortness of breath. He denies any PND. He does not have any orthopnea. He does not have any symptoms of congestive heart failure. He does not have any palpitations that he is aware of. He does not have any lightheadedness or dizziness. He does not have any near-syncope or syncope. He does not have any lower extremity edema. He does not have any symptoms of claudication. 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 Required: No Is patient in pain?: No Allergies No Known Allergies Allergy (Verified 07/21/24 11:05) Medications ???Medication ???Instructions ???Recorded ???Confirmed ???Type fluticasone propionate 50 50 mcg intranasal BID PRN Allergies 10/13/17 07/21/24 History mcg/actuation nasal spray,suspension (Flonase Allergy Relief) tamsulosin 0.4 mg capsule 0.4 mg PO Q OTHER DAY 08/05/22 07/21/24 History finasteride 5 mg tablet (Proscar) 5 mg PO DAILY 07/19/23 07/21/24 History lisinopril 5 mg tablet See Rx Instructions .Route 07/23/23 07/21/24 Rx .COMPLEX #90 tabs pravastatin 40 mg tablet 40 mg PO QHS #90 TABLETS 03/06/24 07/21/24 Rx escitalopram oxalate 5 mg tablet 5 mg PO DAILY #90 tabs 06/20/24 07/21/24 Rx Have you fallen in the past year?: No PFSH Medical History DVT (deep venous thrombosis) COVID-19 Fracture Flank hernia Injury of head and neck History of stress test Cancer Kidney stones Intractable pain Diverticulitis Left calcaneal fracture Pure hypercholesterolemia LINDA on CPAP BPH (benign prostatic hyperplasia) GERD (gastroesophageal reflux disease) Nonrheumatic tricuspid valve regurgitation Non-rheumatic mitral regurgitation Nonrheumatic mitral (valve) prolapse Atherosclerotic heart disease of [place] coronary artery without angina pectoris CAD (coronary artery disease) Essential hypertension Mild pulmonary hypertension Mild tricuspid regurgitation Mild mitral regurgitation Mitral valve prolapse Surgical History S/p reverse total shoulder arthroplasty History of mandibular surgery H/O eye surgery S/P ORIF (open reduction internal fixation) fracture Radial nerve laceration History of bilateral cataract extraction History of umbilical hernia repair History of right inguinal hernia repair Family History Father , age 70, multiple MD Myocardial infarction Cancer skin CAD (coronary artery disease) Mother CHF (congestive heart failure) Hypertension Brother Myocardial infarction, Onset Age: 44 Heart disease Grandfather CVA (cerebral vascular accident) Sister Cancer Bone CA Uncle Diabetes Social History household members: spouse current occupational status: retired 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 Smoking Status: Never smoker Electronic Cigarette Use: not used alcohol intake: never substance use type: does not use caffeine: Yes Type: carbonated beverages and coffee what type of physical activity do you participate in: other details: tredmill frequency: 1-2 times per week duration: 15-30 minutes/day seatbelt use: sometimes do you feel safe at home: Yes ROS Const Const: Negative for fatigue, weakness, fever(s) or headache(s) Eyes Eyes: Negative for blind spots, loss of peripheral vision or transient loss of vision ENT ENT: Negative for headache(s), dizziness, tinnitus, Nosebleed/epistaxis or balance problems Cardio Chest Pain: No Palpitations: No Edema: None Muscle aches with walking: None Resp Respirat (more content not included)... Normal [facility] Lipid Profileon 07-20-2024 Cholesterol [Mass/Vol] 178 mg/dL Normal 200 [facility] Comment on above: Result Comment: <200 mg/dL Desirable 200-240 mg/dL Borderline >240 mg/dL High Risk Performed By: #### L 500.3400, L500.4100 #### [facility] [address] [place], [address] Cholesterol in HDL [Mass/Vol] 44 mg/dL Normal [facility] Comment on above: Result Comment: The drugs N-Acetylcysteine and Metamizole may falsely depress this assay. Reference Range HDL <40 mg/dL Low HDL Cholesterol HDL >or= 60 mg/dL High HDL Cholesterol Performed By: #### L 500.3400, L500.4100 #### [facility] [address] [place], [address] Cholesterol in LDL [Mass/Vol] 109 mg/dL Normal 0-130 [facility] Comment on above: Performed By: #### L 500.3400, L500.4100 #### [facility] [address] [place], [address] Cholesterol in VLDL [Mass/Vol] 25 mg/dL Normal 5-40 [facility] Comment on above: Performed By: #### L 500.3400, L500.4100 #### [facility] [address] [place], [address] Triglyceride [Mass/Vol] 126 mg/dL Normal [facility] Comment on above: Result Comment: The drugs N-Acetylcysteine and Metamizole may falsely depress this assay. Serum Triglycerides Reference Interval Normal <150 mg/dL Borderline high 150 - 199 mg/dL High 200 - 499 mg/dL Very High > or = 500 mg/dL Performed By: #### L 500.3400, L500.4100 #### [facility] [address] [place], [address] Liver Profileon 07-20-2024 Albumin [Mass/Vol] 3.5 g/dL Normal 3.2-5.0 [facility] Comment on above: Performed By: #### L 500.3400, L500.4100 #### [facility] [address] [place], [address] ALK P 133 U/L High 45-117 [facility] Comment on above: Performed By: #### L 500.3400, L500.4100 #### [facility] [address] [place], [address] ALT [Catalytic activity/Vol] 22 U/L Normal 16-61 [facility] Comment on above: Performed By: #### L 500.3400, L500.4100 #### [facility] [address] [place], [address] AST [Catalytic activity/Vol] 13 U/L Low 15-37 [facility] Comment on above: Performed By: #### L 500.3400, L500.4100 #### [facility] [address] [place], [address] Bilirubin [Mass/Vol] 0.60 mg/dL Normal 0.20-1.00 [facility] Comment on above: Result Comment: For patients on eltrombopag therapy, use of Dimension [place] TBIL is not recommended. Performed By: #### L 500.3400, L500.4100 #### [facility] [address] [place], [address] Bilirubin.direct [Mass/Vol] 0.12 mg/dL Normal 0.00-0.30 [facility] Comment on above: Performed By: #### L 500.3400, L500.4100 #### [facility] [address] [place], [address] Globulin (S) [Mass/Vol] 3.5 g/dL Normal 2.2-4.2 [facility] Comment on above: Performed By: #### L 500.3400, L500.4100 #### [facility] [address] [place], [address] T PROT 7.0 g/dL Normal 6.4-8.2 [facility] Comment on above: Performed By: #### L 500.3400, L500.4100 #### [facility] [address] [place], [address] Absolute lymphocyte countOrd ered By: Geena Burroughs on 11-23-2023 Lymphocytes Auto (Unsp spec) [#/Vol] 1.86 10*3/uL 0.83-4.51 [facility] Automated lymphocyte count a s percentage of total leukocytesOrdered By: Geena Burroughs on 11-23-2023 Lymphocytes/100 WBC Auto (Unsp spec) 30.5 % 19-41 [facility] Basophil percentageOrdered B y: Geena Heike on 11-23-2023 Basophil percentage 7.24 ng/mL 0.0-4.0 [facility] Comment on above: This test was perfor med using the TPSA assay method [facility]. Values obtained with differentassay methods cannot be used interchangably.When changing PSA assays in the course of monitoring apatient, additional sequential testing should be carriedout to confirm baseline values. Basophils/100 WBC (Bld) 0.5 % 0-1 [facility] Bilirubin [Mass/Vol] 0.50 mg/dL 0.20-1.00 [facility] Comment on above: For patients on eltr ombopag therapy, use of Dimension [place] TBIL is not recommended. Chloride [Moles/Vol] 110 mmol/L 98-107 [facility] Cholesterol [Mass/Vol] 200 mg/dL <200 [facility] Comment on above: <200 mg/dL Desirable 200-240 mg/dL Borderline >240 mg/dL High Risk Eosinophils/100 WBC (Bld) 3.9 % 0-5 [facility] Glucose [Mass/Vol] 101 mg/dL 74-106 [facility] Comment on above: Fasting Glucose resu lt from 100 to 125 mg/dL suggests IMPAIRED HOMEOSTASIS per A.D.A. criteria. Hemoglobin (Bld) [Mass/Vol] 14.3 g/dL 13.0-16.5 [facility] Monocytes/100 WBC (Bld) 7.4 % 0-10 [facility] Neutrophils (Bld) [#/Vol] 3.5 10*3/uL 2.0-7.7 [facility] Neutrophils/100 WBC (Bld) 57.2 % 47-70 [facility] Potassium [Moles/Vol] 4.9 mmol/L 3.5-5.1 [facility] Protein [Mass/Vol] 6.9 g/dL 6.4-8.2 [facility] Sodium [Moles/Vol] 142 mmol/L 136-145 [facility] Triglyceride [Mass/Vol] 129 mg/dL <199 [facility] Comment on above: The drugs N-Acetylcy steine and Metamizole may falsely depress this assay.Serum Triglycerides Reference Interval Normal <150 mg/dL Borderline high 150 - 199 mg/dL High 200 - 499 mg/dL Very High > or = 500 mg/dL WBC (Bld) [#/Vol] 6.1 10*3/uL 4.4-11.0 [facility] Determination of erythrocyte mean corpuscular volume (MCV)Ordered By: Geena Burroughs on 11-23-2023 MCV (RBC) [Entitic vol] 94.6 fL 80-94 [facility] Direct bilirubinOrdered By: Geena Burroughs on 11-23-2023 Bilirubin.direct [Mass/Vol] 0.12 mg/dL 0.00-0.30 [facility] Erythrocyte distribution wid th ratioOrdered By: Geena Burroughs on 11-23-2023 Erythrocyte distribution width (RBC) [Ratio] 13.2 % 11.6-14.6 [facility] Erythrocyte distribution wid th standard deviationOrdered By: Geenadebora Burroughs on 11-23-2023 Erythrocyte distribution width (RBC) [Entitic vol] 45.6 fL 35.1-43.9 [facility] Hematocrit Auto (Bld) [Volum e fraction]Ordered By: Geena Burroughs on 11-23-2023 Hematocrit (Bld) [Volume fraction] 43.7 % 40-54 [facility] Immature granulocytes/100 WB C Auto (Bld)Ordered By: Geenadebora Burroughs on 11-23-2023 Immature granulocytes/100 WBC (Bld) 0.500 % 0.0-0.9 [facility] Comment on above: IG% - Immature Granu locytes (promyelocytes, myelocytes and metamyelocytes) > 1% indicates that a LEFT SHIFT is Present. Laboratory - Chemistry and C hemistry - challengeOrdered By: Geenadebora Burroughs on 11-23-2023 Albumin/Globulin [Mass ratio] 1.0 {ratio} 0.9-2.4 [facility] ALP [Catalytic activity/Vol] 119 U/L 45-117 [facility] ALT [Catalytic activity/Vol] 23 U/L 16-61 [facility] Cholesterol in HDL [Mass/Vol] 45 mg/dL >40 [facility] Comment on above: The drugs N-Acetylcy steine and Metamizole may falsely depress this assay. Reference Range HDL <40 mg/dL Low HDL Cholesterol HDL >or= 60 mg/dL High HDL Cholesterol Cholesterol in LDL [Mass/Vol] 129 mg/dL 0-130 [facility] CO2 [Moles/Vol] 27.0 mmol/L 21.0-32.0 [facility] Cobalamin (Vitamin B12) [Mass/Vol] 318 pg/mL 211-911 [facility] Globulin (S) [Mass/Vol] 3.4 g/dL 2.2-4.2 [facility] Urea nitrogen/Creatinine [Mass ratio] 14.4 mg/mg 10-20 [facility] - Hematology and Cell countsOrdered By: Geena Burroughs on 11-23-2023 MCH (RBC) [Entitic mass] 31.0 pg 27.0-32.0 [facility] MCHC (RBC) [Mass/Vol] 32.7 g/dL 32-36 [facility] Nucleated RBC/100 WBC (Bld) [Ratio] 0 % 0-5 [facility] Platelet mean volume (Bld) [Entitic vol] 10.0 fL 6.2-12.0 [facility] Platelets (Bld) [#/Vol] 250 10*3/uL 150-450 [facility] No Panel InformationOrdered By: Geena Burroughs on 11-23-2023 Estimated GFR (MDRD) Amer 99 mL/min >60 [facility] Comment on above: GFR Calc Estimated GFR (MDRD) Non-Af Amer 81 mL/min >60 [facility] Comment on above: Non- GFR Calc Vitamin D 25-Hydroxy 28.5 ng/mL [facility] Comment on above: Vitamin D 25(OH) Sta tus Range Deficiency <20 ng/mL (50nmol/L) Insufficiency 20 - 30 ng/mL (50 - 75 nmol/L) Sufficiency 30 - 100 ng/mL (75 - 250 nmol/L) Toxicity >100 ng/mL (>250 nmol/L) VLDL Cholesterol 26 mg/dL 5-40 [facility] RBC Auto (Bld) [#/Vol]Ordere d By: Geena Burroughs on 11-23-2023 RBC (Bld) [#/Vol] 4.62 10*6/uL 4.6-6.2 [facility] Serum or plasma calcium anjel urement (mass/volume)Ordered By: Geena Burroughs on 11-23-2023 Calcium [Mass/Vol] 10.0 mg/dL 8.5-10.1 [facility] Serum or plasma creatinine m easurement (mass/volume)Ordered By: Geena Burroughs on 11-23-2023 Creatinine [Mass/Vol] 0.97 mg/dL 0.70-1.30 [facility] Comment on above: The validity of the calculated GFR & GFRAA in patients over 70 years has not been determined. Clinical correlation is essential. Serum or plasma urea nitroge n measurement (mass/volume)Ordered By: Geena Burroughs on 11-23-2023 Urea nitrogen [Mass/Vol] 14 mg/dL 7-18 [facility] Thin prep Papanicolaou smear with manual screeningOrdered By: Geena Burroughs on 11-23-2023 Thin prep Papanicolaou smear with manual screening 3.5 g/dL 3.2-5.0 [facility] Thin prep Papanicolaou smear with manual screening 14 U/L 15-37 [facility] Thin prep Papanicolaou smear with manual screening 5 5-15 [facility] Basophil percentageOrdered B y: Dr. Vu on 03-18-2023 Basophil percentage < 0.9 mg/dL 0.70-1.30 [facility] No Panel InformationOrdered By: Dr. Vu on 03-18-2023 Bedside Estimated GFR (eGFR) > 60.0000 mL/min >60 [facility] Basophil percentageOrdered B y: Dr. Keen on 03-16-2023 Bilirubin [Mass/Vol] 0.60 mg/dL 0.20-1.00 [facility] Comment on above: For patients on eltr ombopag therapy, use of Dimension [place] TBIL is not recommended. Cholesterol [Mass/Vol] 166 mg/dL <200 [facility] Comment on above: <200 mg/dL Desirable 200-240 mg/dL Borderline >240 mg/dL High Risk Protein [Mass/Vol] 7.1 g/dL 6.4-8.2 [facility] Triglyceride [Mass/Vol] 101 mg/dL <199 [facility] Comment on above: The drugs N-Acetylcy steine and Metamizole may falsely depress this assay.Serum Triglycerides Reference Interval Normal <150 mg/dL Borderline high 150 - 199 mg/dL High 200 - 499 mg/dL Very High > or = 500 mg/dL Direct bilirubinOrdered By: Dr. Keen on 03-16-2023 Bilirubin.direct [Mass/Vol] 0.16 mg/dL 0.00-0.30 [facility] - Chemistry and C hemistry - challengeOrdered By: Dr. Keen on 03-16-2023 ALP [Catalytic activity/Vol] 112 U/L 45-117 [facility] ALT [Catalytic activity/Vol] 25 U/L 16-61 [facility] Globulin (S) [Mass/Vol] 3.7 g/dL 2.2-4.2 [facility] Serum or plasma albumin anjel urement (mass/volume)Ordered By: Dr. Keen on 03-16-2023 Albumin [Mass/Vol] 3.4 g/dL 3.2-5.0 [facility] Serum or plasma cholesterol in HDL measurement (mass/volume)Ordered By: Dr. Keen on 03-16-2023 Cholesterol in HDL [Mass/Vol] 47 mg/dL >40 [facility] Comment on above: The drugs N-Acetylcy steine and Metamizole may falsely depress this assay. Reference Range HDL <40 mg/dL Low HDL Cholesterol HDL >or= 60 mg/dL High HDL Cholesterol Serum or plasma cholesterol in VLDL measurement (mass/volume)Ordered By: Dr. Keen on 03-16-2023 Cholesterol in VLDL [Mass/Vol] 20 mg/dL 5-40 [facility] Serum or plasma low density lipoprotein (LDL) cholesterol measurement (mass/volume)Ordered By: Dr. Keen on 03-16-2023 Cholesterol in LDL [Mass/Vol] 99 mg/dL 0-130 [facility] Thin prep Papanicolaou smear with manual screeningOrdered By: Dr. Keen on 03-16-2023 Thin prep Papanicolaou smear with manual screening 17 U/L 15-37 [facility] No Panel InformationOrdered By: JOSEFINA Valladares on 03-10-2023 Prostate Specific Antigen Screen 15.40 ng/mL 0.00-4.00 [facility] Comment on above: This test was perfor med using the TPSA assay method for the[facility]. Values obtained with differentassay methods cannot be used interchangably.When changing PSA assays in the course of monitoring apatient, additional sequential testing should be carriedout to confirm baseline values. Absolute lymphocyte countOrd ered By: Dr. Pennington on 01-30-2023 Lymphocytes Auto (Unsp spec) [#/Vol] 1.24 10*3/uL 0.83-4.51 [facility] Basophil percentageOrdered B y: Dr. Pennington on 01-30-2023 Basophils/100 WBC (Bld) 0.6 % 0-1 [facility] Chloride [Moles/Vol] 105 mmol/L 98-107 [facility] Eosinophils/100 WBC (Bld) 0.3 % 0-5 [facility] Glucose [Mass/Vol] 94 mg/dL 74-106 [facility] Neutrophils (Bld) [#/Vol] 5.1 10*3/uL 2.0-7.7 [facility] Neutrophils/100 WBC (Bld) 71.8 % 47-70 [facility] Potassium [Moles/Vol] 4.2 mmol/L 3.5-5.1 [facility] Sodium [Moles/Vol] 137 mmol/L 136-145 [facility] WBC (Bld) [#/Vol] 7.1 10*3/uL 4.4-11.0 [facility] Blood erythrocytes count (nu mber/volume)Ordered By: Dr. Pennington on 01-30-2023 RBC (Bld) [#/Vol] 4.06 10*6/uL 4.6-6.2 [facility] Blood hemoglobin measurement (mass/volume)Ordered By: Dr. Pennington on 01-30-2023 Hemoglobin (Bld) [Mass/Vol] 12.6 g/dL 13.0-16.5 [facility] Blood lymphocytes/100 leukoc ytesOrdered By: Dr. Pennington on 01-30-2023 Lymphocytes/100 WBC (Bld) 17.6 % 19-41 [facility] Blood monocytes/100 leukocyt esOrdered By: Dr. Pennington on 01-30-2023 Monocytes/100 WBC (Bld) 9.1 % 0-10 [facility] Blood platelet mean volumeOr dered By: Dr. Pennington on 01-30-2023 Platelet mean volume (Bld) [Entitic vol] 9.5 fL 6.2-12.0 [facility] Determination of erythrocyte mean corpuscular volume (MCV)Ordered By: Dr. Pennington on 01-30-2023 MCV (RBC) [Entitic vol] 96.6 fL 80-94 [facility] Hematocrit Auto (Bld) [Volum e fraction]Ordered By: Dr. Pennington on 01-30-2023 Hematocrit (Bld) [Volume fraction] 39.2 % 40-54 [facility] Influenza virus A and B and SARS-CoV-2 (COVID-19) Ag panel - Upper respiratory specimOrdered By: Dr. Pennington on 01-30-2023 SARS-CoV-2 & FLU Antigen (Rapid) SARS-CoV-2 (COVID 19) [facility] - Chemistry and C hemistry - challengeOrdered By: Dr. Pennington on 01-30-2023 CO2 [Moles/Vol] 26.0 mmol/L 21.0-32.0 [facility] Urea nitrogen/Creatinine [Mass ratio] 13.6 mg/mg 10-20 [facility] - Hematology and Cell countsOrdered By: Dr. Pennington on 01-30-2023 Erythrocyte distribution width (RBC) [Entitic vol] 46.5 fL 35.1-43.9 [facility] Erythrocyte distribution width (RBC) [Ratio] 13.0 % 11.6-14.6 [facility] Immature granulocytes/100 WBC (Bld) 0.600 % 0.0-0.9 [facility] Comment on above: IG% - Immature Granu locytes (promyelocytes, myelocytes and metamyelocytes) > 1% indicates that a LEFT SHIFT is Present. MCH (RBC) [Entitic mass] 31.0 pg 27.0-32.0 [facility] Nucleated RBC/100 WBC (Bld) [Ratio] 0 % 0-5 [facility] MCHC Auto (RBC) [Mass/Vol]Or dered By: Dr. Pennington on 01-30-2023 MCHC (RBC) [Mass/Vol] 32.1 g/dL 32-36 [facility] No Panel InformationOrdered By: Dr. Pennington on 01-30-2023 Estimated Creatinine Clearance Calc 71.25 ml/min [facility] Estimated GFR (MDRD) Amer 101 mL/min >60 [facility] Comment on above: GFR Calc Estimated GFR (MDRD) Non-Af Amer 83 mL/min >60 [facility] Comment on above: Non- GFR Calc Platelets bldOrdered By: Dr. Pennington on 01-30-2023 Platelets (Bld) [#/Vol] 191 10*3/uL 150-450 [facility] Serum or plasma calcium anjel urement (mass/volume)Ordered By: Dr. Pennington on 01-30-2023 Calcium [Mass/Vol] 9.5 mg/dL 8.5-10.1 [facility] Serum or plasma creatinine m easurement (mass/volume)Ordered By: Dr. Pennington on 01-30-2023 Creatinine [Mass/Vol] 0.96 mg/dL 0.70-1.30 [facility] Comment on above: The validity of the calculated GFR & GFRAA in patients over 70 years has not been determined. Clinical correlation is essential. Serum or plasma urea nitroge n measurement (mass/volume)Ordered By: Dr. Pennington on 01-30-2023 Urea nitrogen [Mass/Vol] 13 mg/dL 7-18 [facility] Thin prep Papanicolaou smear with manual screeningOrdered By: Dr. Pennington on 01-30-2023 Thin prep Papanicolaou smear with manual screening 6 5-15 [facility] Absolute lymphocyte countOrd ered By: Dr. Pennington on 12-21-2022 Lymphocytes Auto (Unsp spec) [#/Vol] 1.92 10*3/uL 0.83-4.51 [facility] Basophil percentageOrdered B y: Dr. Pennington on 12-21-2022 Basophils/100 WBC (Bld) 0.4 % 0-1 [facility] Chloride [Moles/Vol] 107 mmol/L 98-107 [facility] Eosinophils/100 WBC (Bld) 3.4 % 0-5 [facility] Glucose [Mass/Vol] 113 mg/dL 74-106 [facility] Comment on above: Fasting Glucose resu lt from 100 to 125 mg/dL suggests IMPAIRED HOMEOSTASIS per A.D.A. criteria. Neutrophils (Bld) [#/Vol] 8.0 10*3/uL 2.0-7.7 [facility] Neutrophils/100 WBC (Bld) 70.8 % 47-70 [facility] Potassium [Moles/Vol] 4.2 mmol/L 3.5-5.1 [facility] Sodium [Moles/Vol] 141 mmol/L 136-145 [facility] WBC (Bld) [#/Vol] 11.3 10*3/uL 4.4-11.0 [facility] Blood erythrocytes count (nu mber/volume)Ordered By: Dr. Pennington on 12-21-2022 RBC (Bld) [#/Vol] 4.39 10*6/uL 4.6-6.2 [facility] Blood hemoglobin measurement (mass/volume)Ordered By: Dr. Pennington on 12-21-2022 Hemoglobin (Bld) [Mass/Vol] 14.1 g/dL 13.0-16.5 [facility] Blood lymphocytes/100 leukoc ytesOrdered By: Dr. Pennington on 12-21-2022 Lymphocytes/100 WBC (Bld) 17.0 % 19-41 [facility] Blood monocytes/100 leukocyt esOrdered By: Dr. Pennington on 12-21-2022 Monocytes/100 WBC (Bld) 7.4 % 0-10 [facility] Blood platelet mean volumeOr dered By: Dr. Pennington on 12-21-2022 Platelet mean volume (Bld) [Entitic vol] 9.3 fL 6.2-12.0 [facility] Determination of erythrocyte mean corpuscular volume (MCV)Ordered By: Dr. Pennington on 12-21-2022 MCV (RBC) [Entitic vol] 95.7 fL 80-94 [facility] Hematocrit Auto (Bld) [Volum e fraction]Ordered By: Dr. Pennington on 12-21-2022 Hematocrit (Bld) [Volume fraction] 42.0 % 40-54 [facility] Laboratory - Chemistry and C hemistry - challengeOrdered By: Dr. Pennington on 12-21-2022 CO2 [Moles/Vol] 27.0 mmol/L 21.0-32.0 [facility] Urea nitrogen/Creatinine [Mass ratio] 17.3 mg/mg 10-20 [facility] - Hematology and Cell countsOrdered By: Dr. Pennington on 12-21-2022 Erythrocyte distribution width (RBC) [Entitic vol] 43.5 fL 35.1-43.9 [facility] Erythrocyte distribution width (RBC) [Ratio] 12.2 % 11.6-14.6 [facility] Immature granulocytes/100 WBC (Bld) 1.000 % 0.0-0.9 [facility] Comment on above: IG% - Immature Granu locytes (promyelocytes, myelocytes and metamyelocytes) > 1% indicates that a LEFT SHIFT is Present. MCH (RBC) [Entitic mass] 32.1 pg 27.0-32.0 [facility] Nucleated RBC/100 WBC (Bld) [Ratio] 0 % 0-5 [facility] MCHC Auto (RBC) [Mass/Vol]Or dered By: Dr. Pennington on 12-21-2022 MCHC (RBC) [Mass/Vol] 33.6 g/dL 32-36 [facility] No Panel InformationOrdered By: Dr. Pennington on 12-21-2022 Estimated Creatinine Clearance Calc 69.80 ml/min [facility] Estimated GFR (MDRD) Amer 97 mL/min >60 [facility] Comment on above: GFR Calc Estimated GFR (MDRD) Non-Af Amer 80 mL/min >60 [facility] Comment on above: Non- GFR Calc Platelets bldOrdered By: Dr. Pennington on 12-21-2022 Platelets (Bld) [#/Vol] 367 10*3/uL 150-450 [facility] Serum or plasma calcium anjel urement (mass/volume)Ordered By: Dr. Pennington on 12-21-2022 Calcium [Mass/Vol] 10.8 mg/dL 8.5-10.1 [facility] Serum or plasma creatinine m easurement (mass/volume)Ordered By: Dr. Pennington on 12-21-2022 Creatinine [Mass/Vol] 0.98 mg/dL 0.70-1.30 [facility] Comment on above: The validity of the calculated GFR & GFRAA in patients over 70 years has not been determined. Clinical correlation is essential. Serum or plasma urea nitroge n measurement (mass/volume)Ordered By: Dr. Pennington on 12-21-2022 Urea nitrogen [Mass/Vol] 17 mg/dL 7-18 [facility] Thin prep Papanicolaou smear with manual screeningOrdered By: Dr. Pennington on 12-21-2022 Thin prep Papanicolaou smear with manual screening 7 5-15 [facility] No Panel InformationOrdered By: Dr. Vu on 12-04-2022 Prostate Specific Antigen Total 17.10 ng/mL 0.0-4.0 [facility] Comment on above: This test was perfor med using the TPSA assay method for the[employer] chemistry system. Values obtained with differentassay methods cannot be used interchangably.When changing PSA assays in the course of monitoring apatient, additional sequential testing should be carriedout to confirm baseline values. Absolute lymphocyte countOrd ered By: Dr. Burroughs on 10-14-2022 Lymphocytes Auto (Unsp spec) [#/Vol] 2.27 10*3/uL 0.83-4.51 [facility] Basophil percentageOrdered B y: Dr. Burroughs on 10-14-2022 Basophils/100 WBC (Bld) 0.5 % 0-1 [facility] Bilirubin [Mass/Vol] 0.60 mg/dL 0.20-1.00 [facility] Comment on above: For patients on eltr ombopag therapy, use of Dimension [place] TBIL is not recommended. Chloride [Moles/Vol] 108 mmol/L 98-107 [facility] Eosinophils/100 WBC (Bld) 1.0 % 0-5 [facility] Glucose [Mass/Vol] 94 mg/dL 74-106 [facility] Neutrophils (Bld) [#/Vol] 4.9 10*3/uL 2.0-7.7 [facility] Neutrophils/100 WBC (Bld) 63.1 % 47-70 [facility] Potassium [Moles/Vol] 4.1 mmol/L 3.5-5.1 [facility] Protein [Mass/Vol] 7.3 g/dL 6.4-8.2 [facility] Sodium [Moles/Vol] 140 mmol/L 136-145 [facility] WBC (Bld) [#/Vol] 7.8 10*3/uL 4.4-11.0 [facility] Blood erythrocytes count (nu mber/volume)Ordered By: Dr. Burroughs on 10-14-2022 RBC (Bld) [#/Vol] 4.77 10*6/uL 4.6-6.2 [facility] Blood hemoglobin measurement (mass/volume)Ordered By: Dr. Burroughs on 10-14-2022 Hemoglobin (Bld) [Mass/Vol] 15.2 g/dL 13.0-16.5 [facility] Blood lymphocytes/100 leukoc ytesOrdered By: Dr. Burroughs on 10-14-2022 Lymphocytes/100 WBC (Bld) 29.1 % 19-41 [facility] Blood monocytes/100 leukocyt esOrdered By: Dr. Burroughs on 10-14-2022 Monocytes/100 WBC (Bld) 6.0 % 0-10 [facility] Blood platelet mean volumeOr dered By: Dr. Burroughs on 10-14-2022 Platelet mean volume (Bld) [Entitic vol] 9.7 fL 6.2-12.0 [facility] Determination of erythrocyte mean corpuscular volume (MCV)Ordered By: Dr. Burroughs on 10-14-2022 MCV (RBC) [Entitic vol] 91.8 fL 80-94 [facility] Hematocrit Auto (Bld) [Volum e fraction]Ordered By: Dr. Burroughs on 10-14-2022 Hematocrit (Bld) [Volume fraction] 43.8 % 40-54 [facility] - Chemistry and C hemistry - challengeOrdered By: Dr. Burroughs on 10-14-2022 ALP [Catalytic activity/Vol] 95 U/L 45-117 [facility] ALT [Catalytic activity/Vol] 36 U/L 16-61 [facility] CO2 [Moles/Vol] 26.0 mmol/L 21.0-32.0 [facility] Globulin (S) [Mass/Vol] 3.4 g/dL 2.2-4.2 [facility] Urea nitrogen/Creatinine [Mass ratio] 16.6 mg/mg 10-20 [facility] - Hematology and Cell countsOrdered By: Dr. Burroughs on 10-14-2022 Erythrocyte distribution width (RBC) [Entitic vol] 42.8 fL 35.1-43.9 [facility] Erythrocyte distribution width (RBC) [Ratio] 12.8 % 11.6-14.6 [facility] Immature granulocytes/100 WBC (Bld) 0.300 % 0.0-0.9 [facility] Comment on above: IG% - Immature Granu locytes (promyelocytes, myelocytes and metamyelocytes) > 1% indicates that a LEFT SHIFT is Present. MCH (RBC) [Entitic mass] 31.9 pg 27.0-32.0 [facility] Nucleated RBC/100 WBC (Bld) [Ratio] 0 % 0-5 [facility] MCHC Auto (RBC) [Mass/Vol]Or dered By: Dr. Burroughs on 10-14-2022 MCHC (RBC) [Mass/Vol] 34.7 g/dL 32-36 [facility] No Panel InformationOrdered By: Dr. Burroughs on 10-14-2022 Estimated GFR (MDRD) Amer 100 mL/min >60 [facility] Comment on above: GFR Calc Estimated GFR (MDRD) Non-Af Amer 82 mL/min >60 [facility] Comment on above: Non- GFR Calc Platelets bldOrdered By: Dr. Burroughs on 10-14-2022 Platelets (Bld) [#/Vol] 264 10*3/uL 150-450 [facility] Serum or plasma albumin anjel urement (mass/volume)Ordered By: Dr. Burroughs on 10-14-2022 Albumin [Mass/Vol] 3.9 g/dL 3.2-5.0 [facility] Serum or plasma albumin/glob ulin mass ratioOrdered By: Dr. Burroughs on 10-14-2022 Albumin/Globulin [Mass ratio] 1.1 {ratio} 0.9-2.4 [facility] Serum or plasma calcium anjel urement (mass/volume)Ordered By: Dr. Burroughs on 10-14-2022 Calcium [Mass/Vol] 9.8 mg/dL 8.5-10.1 [facility] Serum or plasma creatinine m easurement (mass/volume)Ordered By: Dr. Burroughs on 10-14-2022 Creatinine [Mass/Vol] 0.96 mg/dL 0.70-1.30 [facility] Comment on above: The validity of the calculated GFR & GFRAA in patients over 70 years has not been determined. Clinical correlation is essential. Serum or plasma urea nitroge n measurement (mass/volume)Ordered By: Dr. Burroughs on 10-14-2022 Urea nitrogen [Mass/Vol] 16 mg/dL 7-18 [facility] Thin prep Papanicolaou smear with manual screeningOrdered By: Dr. Burroughs on 10-14-2022 Thin prep Papanicolaou smear with manual screening 13 U/L 15-37 [facility] Thin prep Papanicolaou smear with manual screening 6 5-15 [facility] Basophil percentageOrdered B y: Dr. Keen on 08-05-2022 Bilirubin [Mass/Vol] 0.60 mg/dL 0.20-1.00 [facility] Comment on above: For patients on eltr ombopag therapy, use of Dimension [place] TBIL is not recommended. Cholesterol [Mass/Vol] 159 mg/dL <200 [facility] Comment on above: <200 mg/dL Desirable 200-240 mg/dL Borderline >240 mg/dL High Risk Protein [Mass/Vol] 7.3 g/dL 6.4-8.2 [facility] Triglyceride [Mass/Vol] 77 mg/dL <199 [facility] Comment on above: The drugs N-Acetylcy steine and Metamizole may falsely depress this assay.Serum Triglycerides Reference Interval Normal <150 mg/dL Borderline high 150 - 199 mg/dL High 200 - 499 mg/dL Very High > or = 500 mg/dL Direct bilirubinOrdered By: Dr. Keen on 08-05-2022 Bilirubin.direct [Mass/Vol] 0.16 mg/dL 0.00-0.30 [facility] - Chemistry and C hemistry - challengeOrdered By: Dr. Keen on 08-05-2022 ALP [Catalytic activity/Vol] 103 U/L 45-117 [facility] ALT [Catalytic activity/Vol] 27 U/L 16-61 [facility] Globulin (S) [Mass/Vol] 3.7 g/dL 2.2-4.2 [facility] Serum or plasma albumin anjel urement (mass/volume)Ordered By: Dr. Keen on 08-05-2022 Albumin [Mass/Vol] 3.6 g/dL 3.2-5.0 [facility] Serum or plasma cholesterol in HDL measurement (mass/volume)Ordered By: Dr. Keen on 08-05-2022 Cholesterol in HDL [Mass/Vol] 50 mg/dL >40 [facility] Comment on above: The drugs N-Acetylcy steine and Metamizole may falsely depress this assay. Reference Range HDL <40 mg/dL Low HDL Cholesterol HDL >or= 60 mg/dL High HDL Cholesterol Serum or plasma cholesterol in VLDL measurement (mass/volume)Ordered By: Dr. Keen on 08-05-2022 Cholesterol in VLDL [Mass/Vol] 15 mg/dL 5-40 [facility] Serum or plasma low density lipoprotein (LDL) cholesterol measurement (mass/volume)Ordered By: Dr. Keen on 08-05-2022 Cholesterol in LDL [Mass/Vol] 94 mg/dL 0-130 [facility] Thin prep Papanicolaou smear with manual screeningOrdered By: Dr. Keen on 08-05-2022 Thin prep Papanicolaou smear with manual screening 14 U/L 15-37 [facility] .Auto Diffon 07-27-2022 Basophil, Absolute 0.0 10 3/mcL Normal 0.0-0.2 [facility] ([place]) Comment on above: Performed By: #### G , CMP #### [address] [address] Basophils/100 WBC (Bld) 0.5 % Normal 0.0-2.5 [facility] ([place]) Comment on above: Performed By: #### G FR, CMP #### [address] [address] Eosinophil, Absolute 0.2 10 3/mcL Normal 0.0-0.4 [facility] ([place] Comment on above: Performed By: #### G FR, CMP #### [address] [address] Eosinophils/100 WBC (Bld) 2.6 % Normal 0.0-7.0 [facility] ([place] Comment on above: Performed By: #### G FR, CMP #### [address] [address] Lymphocyte, Absolute 2.0 10 3/mcL Normal 0.8-3.9 [facility] ([place] Comment on above: Performed By: #### G FR, CMP #### [address] [address] Lymphocytes/100 WBC (Bld) 34.4 % Normal 10.0-50.0 [facility] ([place] Comment on above: Performed By: #### G FR, CMP #### [address] [address] Monocyte, Absolute 0.4 10 3/mcL Normal 0.2-1.0 [facility] ([place] Comment on above: Performed By: #### G FR, CMP #### [address] [address] Monocytes/100 WBC (Bld) 7.1 % Normal 1.7-13.0 [facility] ([place] Comment on above: Performed By: #### Hugo DEL CID, CMP #### [address] [address] Neutrophils/100 WBC (Bld) 55.4 % Normal 37.0-80.0 [facility] ([place]) Comment on above: Performed By: #### Hugo DEL CID, CMP #### [address] [address] .GFRon 07-27-2022 GFR 103 ml/min/1.73sqm Normal [facility] ([place]) Comment on above: Result Comment: GFR Population mean for , Non- Americans Ages 20-29 = 116 mL/min/1.73 sq.m. Ages 30-39 = 107 mL/min/1.73 sq.m. Ages 40-49 = 99 mL/min/1.73 sq.m. Ages 50-59 = 93 mL/min/1.73 sq.m. Ages 60-69 = 85 mL/min/1.73 sq.m. Ages 70+ = 75 mL/min/1.73 sq.m. Chronic Kidney Disease: Less than 60 mL/min/1.73 square meters End Stage Renal Disease: Less than 15 mL/min/1.73 square meters Performed By: #### Hugo DEL CID, CMP #### [address] [address] GFR Non- 85 ml/min/1.73sqm Normal [facility] ([place]) Comment on above: Result Comment: GFR Population mean for , Non- Americans Ages 20-29 = 116 mL/min/1.73 sq.m. Ages 30-39 = 107 mL/min/1.73 sq.m. Ages 40-49 = 99 mL/min/1.73 sq.m. Ages 50-59 = 93 mL/min/1.73 sq.m. Ages 60-69 = 85 mL/min/1.73 sq.m. Ages 70+ = 75 mL/min/1.73 sq.m. Chronic Kidney Disease: Less than 60 mL/min/1.73 square meters End Stage Renal Disease: Less than 15 mL/min/1.73 square meters Performed By: #### Hugo DEL CID, CMP #### [address] [address] .NEUABSon 07-27-2022 Neutrophil, Absolute 3.2 10 3/mcL Normal 2.9-6.2 [facility] ([place]) Comment on above: Performed By: #### Hugo DEL CID, CMP #### [address] [address] CBCon 07-27-2022 Erythrocyte distribution width (RBC) [Ratio] 13.8 % Normal 11.5-14.5 [facility] ([place]) Comment on above: Performed By: #### Hugo DEL CID, CMP #### [address] [address] Hematocrit (Bld) [Volume fraction] 41.7 % Low 42.0-52.0 [facility] ([place] Comment on above: Performed By: #### Hugo DEL CID, CMP #### [address] [address] Hgb 14.4 G/dL Normal 14.0-18.0 [facility] ([place] Comment on above: Performed By: #### Hugo DEL CID, CMP #### [address] [address] MCH (RBC) [Entitic mass] 31.4 pg High 27.0-31.2 [facility] ([place]) Comment on above: Performed By: #### G , CMP #### [address] [address] MCHC 34.4 G/dL Normal 31.8-35.4 [facility] ([place] Comment on above: Performed By: #### G , CMP #### [address] [address] MCV (RBC) [Entitic vol] 91.0 fL Normal 80.0-94.0 [facility] ([place] Comment on above: Performed By: #### Hugo DEL CID, CMP #### [address] [address] Platelet 254 10 3/mcL Normal 130-400 [facility] ([place]) Comment on above: Performed By: #### G , CMP #### [address] [address] Platelet mean volume (Bld) [Entitic vol] 8.1 fL Normal 7.4-10.4 [facility] ([place]) Comment on above: Performed By: #### G , CMP #### [address] [address] RBC 4.58 10 6/mcL Normal 4.04-6.13 [facility] ([place] Comment on above: Performed By: #### G , CMP #### [address] [address] WBC 5.8 10 3/mcL Normal 4.6-10.8 [facility] ([place] Comment on above: Performed By: #### G FR, CMP #### [address] [address] CMPon 07-27-2022 Albumin Level 3.8 G/dL Normal 3.4-4.8 [facility] ([place] Comment on above: Performed By: #### Hugo FR, CMP #### [address] [address] Albumin/Globulin [Mass ratio] 1.3 {ratio} Normal 1.1-2.5 [facility] ([place] Comment on above: Performed By: #### G , CMP #### [address] [address] ALP [Catalytic activity/Vol] 107 U/L Normal 40-135 [facility] ([place] Comment on above: Performed By: #### G , CMP #### [address] [address] ALT [Catalytic activity/Vol] 29 U/L Normal 16-63 [facility] ([place] Comment on above: Performed By: #### G , CMP #### [address] [address] AST [Catalytic activity/Vol] 19 U/L Normal 10-40 [facility] ([place] Comment on above: Performed By: #### Hugo DEL CID, CMP #### [address] [address] Bili Total 0.6 mg/dL Normal 0.2-1.0 [facility] ([place]) Comment on above: Result Comment: Use of this assay is not recommended for patients undergoing treatment with eltrombopag due to the potential for falsely elevated results. Performed By: #### Hugo DEL CID, CMP #### [address] [address] BUN/Creatinine Ratio 21 ratio Normal 7-27 [facility] ([place]) Comment on above: Performed By: #### G , CMP #### [address] [address] Calcium [Mass/Vol] 9.4 mg/dL Normal 8.4-10.2 [facility] ([place] Comment on above: Performed By: #### Hugo DEL CID, CMP #### [address] [address] Chloride [Moles/Vol] 106 mmol/L Normal 98-107 [facility] ([place] Comment on above: Performed By: #### G , CMP #### [address] [address] CO2 [Moles/Vol] 28 mmol/L Normal 23-31 [facility] ([place] Comment on above: Performed By: #### G FR, CMP #### [address] [address] Creatinine [Mass/Vol] 0.89 mg/dL Normal 0.70-1.30 [facility] ([place]) Comment on above: Performed By: #### G , CMP #### [address] [address] Electrolyte Balance 8.0 mEq/L Normal 4.0-15.0 [facility] ([place]) Comment on above: Performed By: #### Hugo DEL CID, CMP #### [address] [address] Globulin 2.9 G/dL Normal [facility] ([place]) Comment on above: Performed By: #### Hugo DEL CID, CMP #### [address] [address] Glucose [Mass/Vol] 93 mg/dL Normal 80-115 [facility] ([place] Comment on above: Performed By: #### Hugo DEL CID, CMP #### [address] [address] Potassium [Moles/Vol] 4.6 mmol/L Normal 3.5-5.1 [facility] ([place]) Comment on above: Performed By: #### G , CMP #### [address] [address] Sodium [Moles/Vol] 142 mmol/L Normal 136-145 [facility] ([place] Comment on above: Performed By: #### G FR, CMP #### [address] [address] Total Protein 6.7 G/dL Normal 6.4-8.2 [facility] ([place]) Comment on above: Performed By: #### G FR, CMP #### [address] [address] Urea nitrogen [Mass/Vol] 19 mg/dL High 7-18 [facility] ([place]) Comment on above: Performed By: #### G , [facility] #### [address] [address] LABORATORYOrdered By: Nika Mcdaniels on 07-27-2022 Albumin BCP dye [Mass/Vol] 3.8 G/dL Invalid Interpretation Code 3.4 - 4.8 G/dL AO ADM SS Albumin/Globulin [Mass ratio] 1.3 {ratio} Invalid Interpretation Code 1.1 - 2.5 ratio AO ADM SS ALP [Catalytic activity/Vol] 107 U/L Invalid Interpretation Code 40 - 135 U/L AO ADM SS ALT With P-5'-P [Catalytic activity/Vol] 29 U/L Invalid Interpretation Code 16 - 63 U/L AO ADM SS AST With P-5'-P [Catalytic activity/Vol] 19 U/L Invalid Interpretation Code 10 - 40 U/L AO ADM SS Bilirubin [Mass/Vol] 0.6 mg/dL Invalid Interpretation Code 0.2 - 1.0 mg/dL AO ADM SS Calcium [Mass/Vol] 9.4 mg/dL Invalid Interpretation Code 8.4 - 10.2 mg/dL AO ADM SS Chloride [Moles/Vol] 106 mmol/L Invalid Interpretation Code 98 - 107 mmol/L AO ADM SS CO2 [Moles/Vol] 28 mmol/L Invalid Interpretation Code 23 - 31 mmol/L AO ADM SS Creatinine [Mass/Vol] 0.89 mg/dL Invalid Interpretation Code 0.70 - 1.30 mg/dL AO ADM SS Electrolyte Balance 8.0 mEq/L Invalid Interpretation Code 4.0 - 15.0 mEq/L AO ADM SS Globulin 2.9 G/dL Invalid Interpretation Code AO ADM SS Glucose [Mass/Vol] 93 mg/dL Invalid Interpretation Code 80 - 115 mg/dL AO ADM SS Potassium [Moles/Vol] 4.6 mmol/L Invalid Interpretation Code 3.5 - 5.1 mmol/L AO ADM SS Protein [Mass/Vol] 6.7 G/dL Invalid Interpretation Code 6.4 - 8.2 G/dL AO ADM SS Sodium [Moles/Vol] 142 mmol/L Invalid Interpretation Code 136 - 145 mmol/L AO ADM SS Urea nitrogen [Mass/Vol] 19 mg/dL Invalid Interpretation Code 7 - 18 mg/dL AO ADM SS Urea nitrogen/Creatinine [Mass ratio] 21 ratio Invalid Interpretation Code 7 - 27 ratio AO ADM SS LABORATORYOrdered By: Adam Vela on 07-27-2022 Basophil, Absolute 0.0 103/mcL Invalid Interpretation Code 0.0 - 0.2 10^3/mcL AO Workflow SS Basophils/100 WBC (Bld) 0.5 % Invalid Interpretation Code 0.0 - 2.5 % AO Workflow SS Eosinophil, Absolute 0.2 103/mcL Invalid Interpretation Code 0.0 - 0.4 10^3/mcL AO Workflow SS Eosinophils/100 WBC (Bld) 2.6 % Invalid Interpretation Code 0.0 - 7.0 % AO Workflow SS Erythrocyte distribution width (RBC) [Ratio] 13.8 % Invalid Interpretation Code 11.5 - 14.5 % AO Workflow SS Hematocrit (Bld) [Volume fraction] 41.7 % Invalid Interpretation Code 42.0 - 52.0 % AO Workflow SS Hemoglobin (Bld) [Mass/Vol] 14.4 G/dL Invalid Interpretation Code 14.0 - 18.0 G/dL AO Workflow SS Lymphocyte, Absolute 2.0 103/mcL Invalid Interpretation Code 0.8 - 3.9 10^3/mcL AO Workflow SS Lymphocytes/100 WBC (Bld) 34.4 % Invalid Interpretation Code 10.0 - 50.0 % AO Workflow SS MCH (RBC) [Entitic mass] 31.4 pg Invalid Interpretation Code 27.0 - 31.2 pg AO Workflow SS MCHC 34.4 G/dL Invalid Interpretation Code 31.8 - 35.4 G/dL AO Workflow SS MCV (RBC) [Entitic vol] 91.0 fL Invalid Interpretation Code 80.0 - 94.0 fL AO Workflow SS Monocyte, Absolute 0.4 103/mcL Invalid Interpretation Code 0.2 - 1.0 10^3/mcL AO Workflow SS Monocytes/100 WBC (Bld) 7.1 % Invalid Interpretation Code 1.7 - 13.0 % AO Workflow SS Neutrophil, Absolute 3.2 103/mcL Invalid Interpretation Code 2.9 - 6.2 10^3/mcL AO Workflow SS Neutrophils/100 WBC (Bld) 55.4 % Invalid Interpretation Code 37.0 - 80.0 % AO Workflow SS Platelet mean volume (Bld) [Entitic vol] 8.1 fL Invalid Interpretation Code 7.4 - 10.4 fL AO Workflow SS Platelets (Bld) [#/Vol] 254 103/mcL Invalid Interpretation Code 130 - 400 10^3/mcL AO Workflow SS RBC (Bld) [#/Vol] 4.58 106/mcL Invalid Interpretation Code 4.04 - 6.13 10^6/mcL AO Workflow SS WBC (Bld) [#/Vol] 5.8 103/mcL Invalid Interpretation Code 4.6 - 10.8 10^3/mcL AO Workflow SS LABORATORYOrdered By: SYSTEM SYSTEM on 07-27-2022 GFR 103 ml/min/1.73sqm Invalid Interpretation Code AO Chemistry S GFR Non- 85 ml/min/1.73sqm Invalid Interpretation Code AO Chemistry S CNPNon 07-03-2022 CNPN Telephone (PODIWS) DORY DARLING ([id number]) 1955 M Date Time Provider Department 07/03/22 STEPHANIE ASTORGA During your visit today, we recorded the following information about you: Socorro Washington RN 07/03/2022 2:15 PM Signed Patient stopped by office and states Dr. Astorga discussed prescribing him Mobic at his [facility]. At the time patient declined but now he would like to try Mobic. Please send to [facility] in [place]. Socorro Washington RN 07/07/2022 4:15 PM Signed Stephanie Astorga You; [facility] Podiatry Pool 3 days ago Order for mobic prescribed Stephanie Astorga DPM Allergies As of Date: 07/03/2022 (No Known Allergies) Date Reviewed: 06/18/2022 Reviewed by: Tamara Dorantes - Fully Assessed Reason for Visit: Medication Request [138] Prescriptions as of 07/07/2022 - meloxicam (MOBIC) 15 mg tablet Take 1 tablet by mouth once daily. - tamsulosin (FLOMAX) 0.4 mg once daily. - lisinopril (ZESTRIL, PRINIVIL) 5 mg tablet Take 5 mg by mouth once daily. - pravastatin (PRAVACHOL) 20 mg tablet Take 20 mg by mouth once daily. - aspirin 81 mg chewable tablet Take 81 mg by mouth once daily. Problem List As Of Date 07/03/2022 Noted Resolved Elevated PSA [R97.20] 07/24/2014 BPH (benign prostatic hyperplasia) [N40.0] 07/24/2014 Lower urinary tract symptoms (LUTS) [R39.9] 07/24/2014 Prostatitis [N41.9] 09/20/2014 Encounter Status:Closed by SOCORRO WASHINGTON RN on 07/07/22 [facility] CNOVon 06-18-2022 CNOV Office Visit (PODIWS ) DORY DARLING ([id number]) 1955 M Date Time Provider Department 06/18/22 1:45 PM STEPHANIE ASTORGA During your visit today, we recorded the following information about you: Tamara Dorantes 06/19/2022 7:38 AM Signed AMB ROOMING INTAKE FLOWSHEET DATA Risk Screening Do you have concerns about personal safety or safety in the home?: No Pain Pain Level: 3 Pain Location: Foot-Left Description: Burning Duration Amount of Time: 4 Duration Units: Months Frequency: Continuous Intervention/Comfort measure: Relaxation, Massage Original injury was April 02, 2020 Surgery was April 18, 2020 at [facility] Stephanie Astorga DPM 06/19/2022 7:38 AM Signed Initial Podiatric Office Visit: Chief Complaint: This 66 year old male who presents with chief complaint:left foot pain HPI Patient presents to clinic for evaluation of left foot. Patient has history of left calcaneal fracture. He underwent orif at [facility] back in 2019 . He had been doing very well until recently . He is starting to develop pain in the medial aspect of left calf and to the lateral aspect of left 5th metatarsal. Of note, he does report that he broke his left 5th metatarsal long duration ago. He does not recall when and how this happened. Patient states he has some degree of pain everyday. Pateient currently treats with rest. He does use ice prn. He does not take medication for the pain. PAIN EVALUATION 06/18/2022 1333 Pain Level: 3 Pain Location: Foot-Left Description: Burning Duration Amount of Time: 4 Duration Units: Months Frequency: Continuous Intervention/Comfort measure: Relaxation;Massage No results found for: HBA1C PCP: Kaleigh Gould DO PAST MEDICAL HISTORY Diagnosis Date BPH (benign prostatic hyperplasia) Hyperlipidemia Hypertension Renal calculi Current Outpatient Medications Medication Sig tamsulosin (FLOMAX) 0.4 mg once daily. lisinopril (ZESTRIL, PRINIVIL) 5 mg tablet Take 5 mg by mouth once daily. pravastatin (PRAVACHOL) 20 mg tablet Take 20 mg by mouth once daily. aspirin 81 mg chewable tablet Take 81 mg by mouth once daily. No current facility-administered medications for this visit. ALLERGIES No Known Allergies PAST SURGICAL HISTORY Procedure Laterality Date COLONOSCOPY HERNIA REPAIR HX inguinal and umbilical No family history on file. Social History Tobacco Use Smoking status: Never Smokeless tobacco: Never Substance Use Topics Alcohol use: No REVIEW OF SYSTEMS GENERAL: Negative for Malaise, significant weight loss, fever RESPIRATORY: Negative for cough, wheezing and shortness of breath CARDIOVASCULAR: Negative for chest pain, leg swelling and palpitations GI: Negative for abdominal discomfort, blood in stools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 POLICY ASSOCIATE-C Althea Toussaint SENIOR POLICY ASSOCIATE Work Phone: [facility] 10-14-2009 novel influenza-H1N1 -09, preservative-free, injectable SENIOR POLICY ASSOCIATE-C Althea Toussaint SENIOR POLICY ASSOCIATE Work Phone: [facility] Payers Date Payer Category Payer Self-pay [id number] 2019 Medicare MEDICARE MEDICAR E A AND B [id number] 2019-Present [phone] [place] [address] Medicare [id number] 2019 Medicare [id number] 2017 Unknown [id number] 1955 Unknown [id number] Unknown [id number] Unknown [id number] Unknown [id number] Unknown [id number] Unknown [id number] Unknown [id number] Unknown [id number] Social History Date Type Detail Facility Start: 06-18-2022 End: 11-18-2023 Tobacco smoking status WYIS Never smoked tobacco [facility] Work Phone: Start: 06-18-2022 Tobacco use and exposure Smokeless tobacco non-user [facility] Work Phone: Start: 06-18-2022 Alcohol intake 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) [facility] Start: 1955 Sex Assigned At Not on file [facility] Start: 06-08-2022 End: 06-18-2022 Exposure to SARS-CoV-2 (event) Not sure [facility] Work Phone: Start: 1955 Sex Assigned At Male [facility] Start: 08-05-2022 End: 11-18-2023 Tobacco smoking status WYIS Unknown if ever smoked [facility] Start: 04-18-2020 Occasional [facility] Start: 04-18-2020 None [facility] Start: 04-18-2020 With Family [facility] Start: 04-15-2020 Non-smoker [facility] Medical Equipment Procedure Code Equipment Code Equipment Origin al Text Equipment Identifier Dates ORIF, fracture, calcaneus 4.0MM PARTIALLY THREADED SCREW FDA Start: 04-18-2020 ORIF, fracture, calcaneus 5.0MM PARTIALLY THREADED SCREW FDA Start: 04-18-2020 ORIF, fracture, calcaneus HYDROSET XT FDA Start: 04-18-2020 ORIF, fracture, calcaneus 4.0MM PARTIALLY THREADED SCREW FDA Start: 04-18-2020 ORIF, fracture, calcaneus 5.0MM PARTIALLY THREADED SCREW FDA Start: 04-18-2020 ORIF, fracture, calcaneus HYDROSET XT FDA Start: 04-18-2020 ORIF, fracture, calcaneus 4.0MM PARTIALLY THREADED SCREW FDA Start: 04-18-2020 ORIF, fracture, calcaneus 5.0MM PARTIALLY THREADED SCREW FDA Start: 04-18-2020 ORIF, fracture, calcaneus HYDROSET XT FDA Start: 04-18-2020 ORIF, fracture, calcaneus 4.0MM PARTIALLY THREADED SCREW FDA Start: 04-18-2020 ORIF, fracture, calcaneus 5.0MM PARTIALLY THREADED SCREW FDA Start: 04-18-2020 ORIF, fracture, calcaneus HYDROSET XT FDA Start: 04-18-2020 ORIF, fracture, calcaneus 4.0MM PARTIALLY THREADED SCREW FDA Start: 04-18-2020 ORIF, fracture, calcaneus 5.0MM PARTIALLY THREADED SCREW FDA Start: 04-18-2020 ORIF, fracture, calcaneus HYDROSET XT FDA Start: 04-18-2020 ORIF, fracture, calcaneus 4.0MM PARTIALLY THREADED SCREW FDA Start: 04-18-2020 ORIF, fracture, calcaneus 5.0MM PARTIALLY THREADED SCREW FDA Start: 04-18-2020 ORIF, fracture, calcaneus HYDROSET XT FDA Start: 04-18-2020 ORIF, fracture, calcaneus 4.0MM PARTIALLY THREADED SCREW FDA Start: 04-18-2020 ORIF, fracture, calcaneus 5.0MM PARTIALLY THREADED SCREW FDA Start: 04-18-2020 ORIF, fracture, calcaneus HYDROSET XT FDA Start: 04-18-2020 ORIF, fracture, calcaneus 4.0MM PARTIALLY THREADED SCREW FDA Start: 04-18-2020 ORIF, fracture, calcaneus 5.0MM PARTIALLY THREADED SCREW FDA Start: 04-18-2020 ORIF, fracture, calcaneus HYDROSET XT FDA Start: 04-18-2020 Cystoscopy, with retrograde pyelogram and ureteral stent insertion STENT,URETERAL PIGTAIL 6FRx26 FDA Start: 04-14-2021 Cystoscopy, with retrograde pyelogram and ureteral stent insertion STENT,URETERAL PIGTAIL 6FRx26 FDA Start: 04-14-2021 Cystoscopy, with retrograde pyelogram and ureteral stent insertion STENT,URETERAL PIGTAIL 6FRx26 FDA Start: 04-14-2021 Cystoscopy, with retrograde pyelogram and ureteral stent insertion STENT,URETERAL PIGTAIL 6FRx26 FDA Start: 04-14-2021 Cystoscopy, with retrograde pyelogram and ureteral stent insertion STENT,URETERAL PIGTAIL 6FRx26 FDA Start: 04-14-2021 Cystoscopy, with retrograde pyelogram and ureteral stent insertion STENT,URETERAL PIGTAIL 6FRx26 FDA Start: 04-14-2021 Cystoscopy, with retrograde pyelogram and ureteral stent insertion STENT,URETERAL PIGTAIL 6FRx26 FDA Start: 04-14-2021 Cystoscopy, with retrograde pyelogram and ureteral stent insertion STENT,URETERAL PIGTAIL 6FRx26 FDA Start: 04-14-2021 Clinical Notes 06-18-2022 to 12-21-2022 Note Date & Type Note Facility 12-21-2022 Discharge summary Note Date/Time December 21, 2022 3:44pm [facility] Medical Records Department [address] [place] [address] Emergency Department Summary 12/21/22 MR#: [id number] Acct: [id number] Name: DORY DARLING #:[id number] : 1955 67 From: Tripp Pennington MD PCP: Dr. Geena Burroughs MD Status:REG ER Location: ED HPI History of Present Illness Chief Complaint: Cellulitis Informant: patient and spouse/S.O. Narrative Narrative: Patient had a left total shoulder done 1 week ago at [facility]. He states he started to get erythema and rash of his arm while he was still in the hospital. He followed up on Wednesday and saw the nurse practitioner. They statedthey never seen anything like this. They recommend hydrocortisone. He states the rash seems to be where his sling is located. It has not spread away from the left shoulder or arm. He denies fevers chills sweats. He states the area is very pruritic. He feels fine. He states that his shoulder is not hurting and it seems like his shoulder is healing quite well. He states that the rash has had a little weeping near his elbow but he has never had any involvement of the incision itself. He saw physical therapist today who stated he has to be seen in the emergency department right away. Nothing specifically makes this a lot better or worse. 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 BPH (benign prostatic hyperplasia) CAD (coronary artery disease) Cancer Diverticulitis Essential hypertension Flank hernia Fracture GERD (gastroesophageal reflux disease) History of stress test Injury of head and neck Intractable pain Kidney stone Kidney stones Left calcaneal fracture Mild mitral regurgitation Mild pulmonary hypertension Mild tricuspid regurgitation Mitral valve prolapse Non-rheumatic mitral regurgitation Nonrheumatic mitral (valve) prolapse Nonrheumatic tricuspid valve regurgitation LINDA on CPAP Pure hypercholesterolemia Home Medications aspirin 81 mg chewable tablet 81 mg PO DAILY@0800 05/26/17 [History Last Taken 04/12/21] fluticasone propionate 50 mcg/actuation nasal spray,suspension (Flonase Allergy Relief) 50 mcg intranasal BID PRN Allergies 10/13/17 [History Last Taken Unknown] ibuprofen 400 mg tablet 400 mg PO Q4H PRN PRN Pain Score 1-10/Temp > 100.7 F #0 tabs 04/14/21 [Rx Last Taken Unknown] pravastatin 40 mg tablet 40 mg PO QHS #90 tabs 01/19/22 [Rx Last Taken Unknown] lisinopril 5 mg tablet 5 mg PO DAILY #90 tabs 05/06/22 [Rx Last Taken Unknown] meloxicam 15 mg tablet 15 mg PO DAILY PRN 08/05/22 [History Last Taken Unknown] tamsulosin 0.4 mg capsule 0.4 mg PO Q OTHER DAY 08/05/22 [History Last Taken Unknown] alprazolam 0.25 mg tablet (Xanax) 0.25 mg PO DAILY PRN anxiety 10/14/22 [History Last Taken Unknown] escitalopram oxalate 10 mg tablet (Lexapro) 10 mg PO DAILY #30 tabs 12/03/22 [Rx Last Taken Unknown] apixaban 5 mg tablet (Eliquis) 5 mg PO BID #74 tabs 12/21/22 [Rx Last Taken Unknown] methylprednisolone 4 mg tablets in a dose pack (Medrol (Isidro)) 4 mg PO DAILY #21 tabs 12/21/22 [Rx Last Taken Unknown] nystatin 100,000 unit/gram topical ointment 1 applic topical BID #30 grams 12/21/22 [Rx Last Taken Unknown] Allergy/AdvReac Type Severity Reaction Status Date / Time No Known Allergies Allergy Verified 12/21/22 15:04 Family History Father , age 70, multiple MD Myocardial infarction Cancer skin CAD (coronary artery disease) Mother CHF (congestive heart failure) Hypertension Brother Myocardial infarction, Onset Age: 44 Heart disease Grandfather CVA (cerebral vascular accident) Sister Cancer Bone CA Uncle Diabetes Surgical History H/O eye surgery History of bilateral cataract extraction History of mandibular surgery History of right inguinal hernia repair History of umbilical hernia repair Radial nerve laceration S/P ORIF (open reduction internal fixation) fracture Social History household members: spouse current occupational status: retired 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 Smoking Status: Never smoker Electronic Cigarette Use: not used alcohol intake: never substance use type: does not use caffeine: Yes Type: carbonated beverages and coffee what type of physical activity do you participate in: other details: tredmill frequency: 1-2 times per week duration: 15-30 minutes/day seatbelt use: sometimes do you feel safe at home: Yes ROS ROS ED Constitutional Constitutional ED: Denies chills, fever(s), subjective or sweats ENT ENT ED: Denies rhinorrhea or sore throat Cardiovascular Cardiovascular: Denies chest pain, palpitations or racing heartbeat Respiratory/Chest Respiratory/Chest: Denies cough or dyspnea Gastrointestinal Gastrointestinal: Denies nausea or vomiting Musculoskeletal Musculoskeletal: Reports other Details: He states that his shoulder is not really hurting him. He can move it reasonably well. The therapist was happy with his range of motion. ; Denies neck pain Integumentary Reports rash Neurologic Neurologic: Denies paresthesias or weakness Hematologic/Lymphatic Hematologic/Lymphatic: Denies easy bleeding or easy bruising Allergic/Immunologic Allergic/Immunologic ED: Denies mouth swelling or tongue swelling EXAM Physical Exam Narrative Exam Narrative: Patient awake alert no acute distress. He is sitting on chair. We have a movedto the bed for better exam. He is nontoxic. HEENT shows no rash or intraoral petechiae or lesions. Mucous membranes are moist. Eyes show no injection Neck shows no involvement or JVD Lungs are clear bilaterally Heart is regular. Rate about 90. Abdomen soft nontender shows no CVA or suprapubic tenderness Extremity: He has a very well-healing incision in the anterior left shoulder. There is no erythema weeping or drainage of this incision. Its not tender or swollen. This looks like it is healing quite well. Skin there is diffuse erythema and a blotchy pattern around his left shoulder mostly posteriorly on the arm and in the axillary area. This is in the area where his sling crosses. The line on his back seems pretty well demarcated and matches the sling support. The area is red. Its not tender. This looks more allergic than cellulitic to me. Const Vital Signs: 12/21/22 14:59 Temperature 97.9 F Temperature Source Temporal Pulse Rate 115 H Respiratory Rate 18 Blood Pressure 134/92 H Blood Pressure Mean 106 Pulse Ox 96 Oxygen Delivery Method Room Air MDM MDM MDM Narrative Medical decision making narrative: Blood work shows minimal nonspecific elevation of the white count. Hemoglobin platelets are normal. Electrolytes are normal including glucose is just minimally up at 113. Patient's ultrasound does show both superficial and deep clot. I think we clot is likely the cause of some of his swelling. But I do not thinkthis represents the cause of his rash because his rash extends much more proximally. I discussed the case directly with orthopedic surgeon on-call for Dr. Fabien Mendoza. He felt that this could be reaction to the skin prep. It may also be reaction to the sling. He does match the area of sling. With the significant involvement in the axilla, he states that its not uncommon for them to get some yeast involvement in that area so we will start nystatin topically. We will start Medrol dose pack because this rash really looks to be consistent with a topical/contact dermatitis. I will also start Eliquis and I discussed risk benefits and options with the patient. He will follow-up with his orthopedic surgeon later this week. He will contact his private physician and follow-up monika will likely need repeat ultrasound to gauge progress and improvement. Lab Data Labs: Laboratory Results - last 24 hr 12/21/22 12/21/22 13:50 13:50 WBC 11.3 H RBC 4.39 L Hgb 14.1 Hct 42.0 MCV 95.7 H MCH 32.1 H MCHC 33.6 RDW Std Deviation 43.5 RDW Coeff of Linnea 12.2 Plt Count 367 MPV 9.3 Immature Gran % (Auto) 1.000 H Neut % (Auto) 70.8 H Lymph % (Auto) 17.0 L [place] % (Auto) 7.4 Eos % (Auto) 3.4 Baso % (Auto) 0.4 Absolute Neuts (auto) 8.0 H Absolute Lymphs (auto) 1.92 Nucleated RBC % 0 Sodium 141 Potassium 4.2 Chloride 107 Carbon Dioxide 27.0 Anion Gap 7 BUN 17 Creatinine 0.98 Estim Creat Clear Calc 69.80 Est GFR (MDRD) Af Amer 97 Est GFR (MDRD) Non-Af 80 BUN/Creatinine Ratio 17.3 Glucose 113 H Calcium 10.8 H Radiography Diagnostic Testing: Clinical Impression(s) from Imaging Studies Venous Doppler Study 12/21/22 15:38 Interpretation Summary Left Brachial vein acute deep venous thrombosis Superficial thrombophlebitis left basilic vein Normal flow patterns right subclavian vein Ordering Physician: Tripp Pennington Referring Physician: Geena Burroughs Performed By: Earnest Vazquez Jef ??? Discharge Plan Triage Chief Complaint: Cellulitis ED Provider: Tripp Pennington Dx/Rx/DC Orders Clinical Impression: Contact dermatitis, Acute deep vein thrombosis (DVT) of left upper extremity Instructions: ED Contact Dermatitis, ED Deep Vein Thrombosis (DVT) Prescriptions: New Eliquis 5 mg tablet 5 mg PO BID Qty: 74 0RF Rx Instructions: 10 mg twice a day for the first week. Then 5 mg twice a day. nystatin 100,000 unit/gram ointment 1 applic topical BID Qty: 30 0RF methylprednisolone [Medrol (Isidro)] 4 mg tablets,dose pack 4 mg PO DAILY Qty: 21 0RF No Action fluticasone propionate [Flonase Allergy Relief] 50 mcg/actuation spray,suspension 50 mcg INTRANASAL BID PRN (Reason: Allergies) tamsulosin 0.4 mg capsule 0.4 mg PO Q OTHER DAY meloxicam 15 mg tablet 15 mg PO DAILY PRN alprazolam [Xanax] 0.25 mg tablet 0.25 mg PO DAILY PRN (Reason: anxiety) aspirin 81 MG tablet,chewable 81 mg PO DAILY@0800 ibuprofen 400 mg Tablet 400 mg PO Q4H PRN PRN (Reason: Pain Score 1-10/Temp > 100.7 F) Qty: 0 0RF pravastatin 40 mg tablet 40 mg PO QHS Qty: 90 3RF lisinopril 5 mg tablet 5 mg PO DAILY Qty: 90 3RF escitalopram oxalate [Lexapro] 10 mg tablet 10 mg PO DAILY Qty: 30 5RF Primary Care Provider: Geena Burroughs Referrals: Geena Burroughs MD [Primary Care Provider] - As soon as possible Activity Restrictions/Additional Instructions: Follow-up with your orthopedic surgeon later this week. Call them tomorrow for an appointment. Disposition Disposition: Home, Self Care What to do if you have Problems For any increased pain, shortness of breath, bleeding, nausea or vomiting, chestpain, or any unexpected problems, contact your Primary Care Provider. Call [facility] ([phone]) or report to the closest Emergency Room. Call 911 if necessary. 12/21/22 1743 <Electronically signed by Tripp Pennington MD> Cosigner Signature (if applicable): CC: Dr. Geena Burroughs MD ~ Signed [facility] Work Phone: 1(239) 723-969510-04-2022 Miscellaneous Notes* Telephone Encounter - Socorro Washington RN - 07/07/2022 4:14 PM EDT Images from the original note were not included. Stephanie Astorga You; [facility] Podiatry Pool 3 days ago Order for mobic prescribed Stephanie Astorga DPM * Telephone Encounter - Socorro Washington RN - 07/03/2022 2:13 PM EDT Patient stopped by office and states Dr. Astorga discussed prescribing him Mobic at his [facility]. At the time patient declined but now he would like to try Mobic. Please send to [facility] in [place]. [facility] NoteHNO ID: [id number] Author: Stephanie Astorga Service: ? Author Type: Physician Type: Progress Notes Filed: 06/19/2022 7:38 AM Note Text: Initial Podiatric Office Visit: Chief Complaint: This 66 year old male who presents with chief complaint:left foot pain HPI Patient presents to clinic for evaluation of left foot. Patient has history of left calcaneal fracture. He underwent orif at [facility] back in 2019 . He had been doing very well until recently . He is starting to develop pain in the medial aspect of left calf and to the lateral aspect of left 5th metatarsal. Of note, he does report that he broke his left 5th metatarsal long duration ago. He does not recall when and how this happened. Patient states he has some degree of pain everyday. Pateient currently treats with rest. He does use ice prn. He does not take medication for the pain. PAIN EVALUATION 06/18/2022 1333 Pain Level: 3 Pain Location: Foot-Left Description: Burning Duration Amount of Time: 4 Duration Units: Months Frequency: Continuous Intervention/Comfort measure: Relaxation;Massage No results found for: HBA1C PCP: Kaleigh Gould DO PAST MEDICAL HISTORY Diagnosis Date BPH (benign prostatic hyperplasia) Hyperlipidemia Hypertension Renal calculi Current Outpatient Medications Medication Sig tamsulosin (FLOMAX) 0.4 mg once daily. lisinopril (ZESTRIL, PRINIVIL) 5 mg tablet Take 5 mg by mouth once daily. pravastatin (PRAVACHOL) 20 mg tablet Take 20 mg by mouth once daily. aspirin 81 mg chewable tablet Take 81 mg by mouth once daily. No current facility-administered medications for this visit. ALLERGIES No Known Allergies PAST SURGICAL HISTORY Procedure Laterality Date COLONOSCOPY HERNIA REPAIR HX inguinal and umbilical No family history on file. Social History Tobacco Use Smoking status: Never Smokeless tobacco: Never Substance Use Topics Alcohol use: No REVIEW OF SYSTEMS GENERAL: Negative for Malaise, significant weight loss, fever RESPIRATORY: Negative for cough, wheezing and shortness of breath CARDIOVASCULAR: Negative for chest pain, leg swelling and palpitations GI: Negative for abdominal discomfort, blood in stools or black stools and change in bowel habits : Negative for dysuria, frequency and incontinence MUSCULOSKELETAL: Negative for joint pain or swelling, back pain, and muscle pain. SKIN: Negative for lesions, rash, and itching. HEMATOLOGY/LYMPHOLOGY Negative for prolonged bleeding, bruising easily, and swollen nodes. ENDOCRINE: Negative for cold or heat intolerance, polyuria, polydipsia and goiter. NEURO: negative Physical Exam: Constitutional: Pt is a well developed 66 year old male who is alert, oriented and cooperative Eyes: Following during examination. No redness or drainage. Respiratory: RR normal and nonlabored. Even breathing. No evidence of distress or shortness of breath. Psychology: Patient is engaged during conversation. Normal affect and mood. Does not appear depressed or anxious during encounter. Vascular: Dorsalis pedis and posterior tibial pulses palpable as b/l Capillary Fill time < 5 seconds to digits 1-5 b/l Skin temperature warm to warm proximal to distal b/l Hair growth present to digits Neurological: intact light touch/epicritic sensation b/l intact protective sensation no significant neurological deficits Dermatological: Nails 1-5 b/l appear normal. Webspaces clean and dry 1-4 b/l. Skin appears well hydrated and supple. good color, texture, turgor. No open lesions present. No callosities present. Musculoskeletal/Orthopaedic: Patient has pain to palpation of left medial and lateral subtalar joint. Mild pain to base of left 5th metatarsal Foot type is neutral structurally AJ ROM is full with knee extended and flexed Subtalar joint rom is decreased to left foot 1st MPJ is full when loaded and no pain or crepitus are noted with ROM. MTJ, STJ are full and free of pain and crepitus. +5/5 muscle strength dorsiflexion, plantarflexion, inversion, eversion b/l Radiographs: 3 views left foot ordered June 18, 2022: I have personally reviewed and interpreted these XR myself: there has been orif of left calcaneus. There is mild to moderate arthritis of left subtalar joint. 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 History and physical examination performed. 2. XR reviewed with patient and interpreted today 3. Discussed arthrhitis of left subtalar joint as sequlae from calcaneal fracture. Would continue with powerstep inserts or custom orthotics. Can take mobic prn. Offered mobic but he elected to hold on prescription. If pain persists, consider injection 4. Discussed ununted fracture of left 5th metatarsal. If no pain, continue with inserts. If pain were present, could con (more content not included)...[facility]09-15-2022 NoteHNO ID: [id number] Author: Anita Ernst RT(R) Service: Nuclear Medicine Author Type: Technologist Type: Progress Notes Filed: 06/18/2022 1:05 PM Note Text: Radiology Service Progress Note PATIENT NAME: Dory Darling DATE OF SERVICE: June 18, 2022 TIME: 12:54 PM PATIENT IDENTITY VERIFICATION COMPLETED USING TWO (2) IDENTIFIERS: Name and Date of confirmed by patient verbally. FALL SCREENING: Has the patient had 2 falls in the last year or 1 fall with injury or currently using an Ambulatory Assistive Device (Walker, Cane, Wheelchair, Crutches, etc.)? No PATIENT GENDER DATA: Male PATIENT RELEVANT IMPLANT DATA REVIEWED: Not Applicable RADIOLOGY DEPARTMENT: General X-ray: Exam(s) Completed: Lower Extremity X-Ray(s): Foot, Left and Wt. Bearing PERIPHERAL IV DATA: Not applicable SIGNED BY: RT Tiana(R) June 18, 2022 12:54 [facility]09-15-2022 NoteHNO ID: [id number] Author: Tamara Dorantes Service: ? Author Type: ? Type: Progress Notes Filed: 06/19/2022 7:38 AM Note Text: AMB ROOMING INTAKE FLOWSHEET DATA Risk Screening Do you have concerns about personal safety or safety in the home?: No Pain Pain Level: 3 Pain Location: Foot-Left Description: Burning Duration Amount of Time: 4 Duration Units: Months Frequency: Continuous Intervention/Comfort measure: Relaxation, Massage Original injury was April 02, 2020 Surgery was April 18, [address] [facility] 06-18-2022 History of Present illness Narrative* Stephanie Astorga - 06/18/2022 2:15 PM EDT Initial Podiatric Office Visit: Chief Complaint: This 66 year old male who presents with chief complaint:left foot pain HPI Patient presents to clinic for evaluation of left foot. Patient has history of left calcaneal fracture. He underwent orif at [facility] back in 2019 . He had been doing very well until recently. He is starting to develop pain in the medial aspect of left calf and to the lateral aspect of left 5th metatarsal. Of note, he does report that he broke his left 5th metatarsal long duration ago. He does not recall when and how this happened. Patient states he has some degree of pain everyday. Pateient currently treats with rest. He does use ice prn. He does not take medication for the pain. PAIN EVALUATION 06/18/2022 1333 Pain Level: 3 Pain Location: Foot-Left Description: Burning Duration Amount of Time: 4 Duration Units: Months Frequency: Continuous Intervention/Comfort measure: Relaxation;Massage No results found for: HBA1C PCP: Kaleigh Gould, PAST MEDICAL HISTORY Diagnosis Date BPH (benign prostatic hyperplasia) Hyperlipidemia Hypertension Renal calculi Current Outpatient Medications Medication Sig tamsulosin (FLOMAX) 0.4 mg once daily. lisinopril (ZESTRIL, PRINIVIL) 5 mg tablet Take 5 mg by mouth once daily. pravastatin (PRAVACHOL) 20 mg tablet Take 20 mg by mouth once daily. aspirin 81 mg chewable tablet Take 81 mg by mouth once daily. No current facility-administered medications for this visit. ALLERGIES No Known Allergies PAST SURGICAL HISTORY Procedure Laterality Date COLONOSCOPY HERNIA REPAIR HX inguinal and umbilical No family history on file. Social History Tobacco Use Smoking status: Never Smokeless tobacco: Never Substance Use Topics Alcohol use: No REVIEW OF SYSTEMS GENERAL: Negative for Malaise, significant weight loss, fever RESPIRATORY: Negative for cough, wheezing and shortness of breath CARDIOVASCULAR: Negative for chest pain, leg swelling and palpitations GI: Negative for abdominal discomfort, blood in stools or black stools and change in bowel habits : Negative for dysuria, frequency and incontinence MUSCULOSKELETAL: Negative for joint pain or swelling, back pain, and muscle pain. SKIN: Negative for lesions, rash, and itching. HEMATOLOGY/LYMPHOLOGY Negative for prolonged bleeding, bruising easily, and swollen nodes. ENDOCRINE: Negative for cold or heat intolerance, polyuria, polydipsia and goiter. NEURO: negative Physical Exam: Constitutional: Pt is a well developed 66 year old male who is alert, oriented and cooperative Eyes: Following during examination. No redness or drainage. Respiratory: RR normal and nonlabored. Even breathing. No evidence of distress or shortness of breath. Psychology: Patient is engaged during conversation. Normal affect and mood. Does not appear depressed or anxious during encounter. Vascular: Dorsalis pedis and posterior tibial pulses palpable as b/l Capillary Fill time < 5 seconds to digits 1-5 b/l Skin temperature warm to warm proximal to distal b/l Hair growth present to digits Neurological: intact light touch/epicritic sensation b/l intact protective sensation no significant neurological deficits Dermatological: Nails 1-5 b/l appear normal. Webspaces clean and dry 1-4 b/l. Skin appears well hydrated and supple. good color, texture, turgor. No open lesions present. No callosities present. Musculoskeletal/Orthopaedic: Patient has pain to palpation of left medial and lateral subtalar joint. Mild pain to base of left 5th metatarsal Foot type is neutral structurally AJ ROM is full with knee extended and flexed Subtalar joint rom is decreased to left foot 1st MPJ is full when loaded and no pain or crepitus are noted with ROM. MTJ, STJ are full and free of pain and crepitus. +5/5 muscle strength dorsiflexion, plantarflexion, inversion, eversion b/l Radiographs: 3 views left foot ordered June 18, 2022: I have personally reviewed and interpreted these XR myself: there has been orif of left calcaneus. There is mild to moderate arthritis of left subtalar joint. 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 History and physical examination performed. 2. XR reviewed with patient and interpreted today 3. Discussed arthrhitis of left subtalar joint as sequlae from calcaneal fracture. Would continue with powerstep inserts or custom orthotics. Can take mobic prn. Offered mobic but he elected to hold on prescription. If pain persists, consider injection 4. Discussed ununted fracture of left 5th metatarsal. If no pain, continue with inserts. If pain were present, could consider removal 5. F/u prn Stephanie Astorga DPM Podiatry [address] [facility] [address] Dept: [phone] Dept * Tamara Dorantes - 06/18/2022 1:33 PM EDT AMB ROOMING INTAKE FLOWSHEET DATA Risk Screening Do you have concerns about personal safety or safety in the home?: No Pain Pain Level: 3 Pain Location: Foot-Left Description: Burning Duration Amount of Time: 4 Duration Units: Months Frequency: Continuous Intervention/Comfort measure: Relaxation, Massage Original injury was April 02, 2020 [facility] History of Present illness Narrative* Anita Ernst, RT(R) - 06/18/2022 1:50 PM EDT Radiology Service Progress Note PATIENT NAME: Dory Darling DATE OF SERVICE: June 18, 2022 TIME: 12:54 PM PATIENT IDENTITY VERIFICATION COMPLETED USING TWO (2) IDENTIFIERS: Name and Date of confirmedby patient verbally. FALL SCREENING: Has the patient had 2 falls in the last year or 1 fall with injury or currently using an Ambulatory Assistive Device (Walker, Cane, Wheelchair, Crutches, etc.)? No PATIENT GENDER DATA: Male PATIENT RELEVANT IMPLANT DATA REVIEWED: Not Applicable RADIOLOGY DEPARTMENT: General X-ray: Exam(s) Completed: Lower Extremity X- Ray(s): Foot, Left and Wt. Bearing PERIPHERAL IV DATA: Not applicable SIGNED BY: RT Tiana(R) June 18, 2022 12:54 PM [facility] Plan note No data available for this section [facility]* Diagnosis Pain in left foot Pain in limb documented in this encounter [facility] note* Diagnosis Arthritis of right subtalar joint- Primary documented in this encounter [facility] note* Diagnosis Onset Date Resolution Status Atherosclerotic heart diseas e of [place] coronary artery without angina pectoris chronic Essential hypertension chron ic Non-rheumatic mitral regurgitation chronic Nonrheumatic mitral (valve) prolapse chronic Pure hypercholesterolemia [facility] Work Phone: Evaluation note* Diagnosis Onset Date Resolution Status Atherosclerotic heart diseas e of [place] coronary artery without angina pectoris chronic Essential hypertension chron ic Non-rheumatic mitral regurgitation chronic Nonrheumatic mitral (valve) prolapse chronic Pure hypercholesterolemia [facility] BPH (benign prostatic hyperplasia) acute Atherosclerotic heart diseas e of [place] coronary artery without angina pectoris chronic Essential hypertension chron ic LINDA on CPAP chronic Moderate major depression no neactive Immunization due noneactive Establishing care with new doctor, encounter for noneactive Severe anxiety noneactive Bilateral shoulder pain none active [facility] Work Phone: Evaluation note* Diagnosis Onset Date Resolution Status BPH (benign prostatic hyperplasia) acute Atherosclerotic heart diseas e of [place] coronary artery without angina pectoris chronic Essential hypertension chron ic LINDA on CPAP chronic Moderate major depression no neactive Immunization due noneactive Establishing care with new doctor, encounter for noneactive Severe anxiety noneactive Bilateral shoulder pain none active BPH (benign prostatic hyperplasia) acute Atherosclerotic heart diseas e of [place] coronary artery without angina pectoris chronic Essential hypertension chron ic LINDA on CPAP chronic Moderate major depression no neactive Severe anxiety noneactive Bilateral shoulder pain none active [facility] Work Phone: Evaluation note* Diagnosis Onset Date Resolution Status Elevated PSA noneactive Rash and nonspecific skin eruption noneactive 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 noneactive Acute brachial vein thrombosis noneactive [facility] Work Phone: Evaluation note* Diagnosis Onset Date Resolution Status Acute sinusitis acute BPH (benign prostatic hyperplasia) acute Atherosclerotic heart diseas e of [place] coronary artery without angina pectoris chronic Essential hypertension chron ic LINDA on CPAP chronic Moderate major depression no neactive Severe anxiety noneactive [facility] Work Phone: Evaluation noteNo assessment information available [facility] Work Phone: Evbkdivlff note* Diagnosis Onset Date Resolution Status Admit Date Left knee pain noneactive May 1:13pm [facility] Work Phone: Hospital Discharge instructions No data available for this section [facility] Progress note No data available for this section [facility] Reason for referral (narrative)* Diagnostic Procedure Only (Routine) - Closed Specialty Diagnoses / Procedures Referred By Contac t Referred To Contact XR IMAGING Diagnoses Pain in left foot Procedures XR FOOT GENERAL 3V AP/LAT/OBL LEFT RADEX FOOT COMPLETE MINIMUM 3 VIEWS Stephanie Astorga [address] [place] [address] Xr Imaging Referral ID Status Reason Start Date Expiration Date V isits Requested Visits Authorized [id number] Closed Auto-Generate d Referral 06/16/2022 07/16/2023 1 1 [facility] for [facility] (narrative)No reason for referral information availableWBrecks[facility] Work [facility]: Reason for visit Narrative* Diagnostic Procedure Only (Routine) - Closed Specialty Diagnoses / Procedures Referred By Contac t Referred To Contact XR IMAGING Diagnoses Pain in left foot Procedures XR FOOT GENERAL 3V AP/LAT/OBL LEFT RADEX FOOT COMPLETE MINIMUM 3 VIEWS Stephanie Astorga [address] [place] [address] Xr Imaging Referral ID Status Reason Start Date Expiration Date V isits Requested Visits Authorized [id number] Closed Auto-Generate d Referral 06/16/2022 07/16/2023 1 1 [facility] Summary Purpose Family History No Family History Records Found Relationship Condition Age at Onset Recorded Date/T reinier father Myocardial infarction Unknown Malignant neoplasm Unknown Coronary artery disease Unknown mother Congestive heart failure Unknown Hypertension Unknown brother Myocardial infarction 44 Cardiac disease Unknown grandfather Cerebrovascular accident (CVA) Unknown sister Malignant neoplasm Unknown uncle Diabetes mellitus Unknown Advance Directives No Advanced Directives Records Found Advance Directive Response Recorded Date/ Time Living Will Yes April 13, 2021 2:51pm Power of Supervisor Print Line Yes April 13 2:51pm Advance Directive Response Recorded Date/ Time Living Will No December 21, 2022 3:52pm Power of Supervisor Print Line No December 21 3:52pm Advance Directive Response Recorded Date/ Time Name of Medical Power of Supervisor Print Line jacqueline Rich January 30, 2023 1:42pm Living Will Yes January 30, 2023 1:42pm Power of Supervisor Print Line Yes January 30 1:42pm Advance Directive Response Recorded Date/ Time Living Will Yes January 30, 2023 12:42pm Power of Supervisor Print Line Yes January 30 12:42pm Chief Complaint and Reason for Visit Chief Complaint E ORDERS 1 y fu Reason for Visit Atherosclerotic hear t disease of [place] coronary artery without angina pectoris Essential hypertension Non-rheumatic mitral regurgitation Nonrheumatic mitral (valve) prolapse Pure hypercholesterolemia Chief Complaint E ORDERS 1 y fu 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 EST CARE - NEEDS CONSENT 1 M FU cellulitis Reason for Visit BPH (benign prostati c hyperplasia) Atherosclerotic heart disease of [place] coronary artery without angina pectoris Essential hypertension LINDA on CPAP Moderate major depression Immunization due Establishing care with new doctor, encounter for Severe anxiety Bilateral shoulder pain BPH (benign prostatic hyperplasia) Atherosclerotic heart disease of [place] coronary artery without angina pectoris Essential hypertension LINDA on CPAP Moderate major depression Severe anxiety Bilateral shoulder pain Chief Complaint cellulitis Follow up cough EORDERS Elevated prostate specific antigen [PSA] Reason for Visit Elevated PSA Rash and nonspecific skin eruption Status post reverse total arthroplasty of left shoulder Acute brachial vein thrombosis Chief Complaint Cough 6 M FU Reason for Visit Acute sinusitis BPH (benign prostatic hyperplasia) Atherosclerotic heart disease of [place] coronary artery without angina pectoris Essential hypertension LINDA on CPAP Moderate major depression Severe anxiety Chief Complaint Admit Date Left knee May 22, 2025 1: 13pm Reason for Visit Admit Date Left knee pain May 22, 2025 1: 13pm Additional Source Comments Source Comments (unrecognize d section and content) In the event this informatio n is protected by the Federal Confidentiality of Alcohol and Drug Abuse Patient Records regulations: The Federal rules restrict any use of the information to criminally investigate or prosecute any alcohol or drug abuse patient.[facility]In the event this information is protected by the Federal Confidentiality of Alcohol and Drug Abuse Patient Records regulations: The Federal rules restrict any use of the information to criminally investigate or prosecute any alcohol or drug abuse patient.[facility] the event this information is protected by the Federal Confidentiality of Alcohol and Drug Abuse Patient Records regulations: The Federal rules restrict any use of the information to criminally investigate or prosecute any alcohol or drug abuse patient.[facility] the event this information is protected by the Federal Confidentiality of Alcohol and Drug Abuse Patient Records regulations: The Federal rules restrict any use of the information to criminally investigate or prosecute any alcohol or drug abuse patient.[facility] Care Teams (unrecognized sec tion and content) Team Status: Active Member Role Status Dates Dr. Geena Burroughs MD Primary Care Provider Active Team Status: Inactive Member Role Status Dates Dr. Geena Burroughs MD Primary Care Pro vider, Attending Provider, Referring Provider Active Team Status: Inactive Member Role Status Dates Dr. Geena Burroughs MD Primary Care Provider, Referri ng Provider Active TAYLOR Maldonado Attending Provider Active Team Status: Inactive Member Role Status Dates Dr. Geena Burroughs MD Primary Care Provider, Attendi ng Provider Active Team Status: Active Member Role Status Dates Dr. Geena Burroughs MD Primary Care Provider Active Dr. Kaleigh Sánchez MD Attending Provider Active Dr. Tripp Pennington MD Referring Provider Active Team Status: Inactive Member Role Status Dates Dr. Tj Vu MD Attending Provider, Referr ing Provider Active Dr. Geena Burroughs MD Primary Care Provider Active Team Status: Inactive Member Role Status Dates Dr. Geena Burroughs MD Primary Care Provider Active Dr. Tripp Pennington MD Attending Provider, Emergency Provider Active Team Status: Inactive Member Role Status Dates Dr. Geena Burroughs MD Primary Care Provider Active Letha Valladares NP-C Attending Provider Active Team Status: Inactive Member Role Status Dates Dr. Geena Burroughs MD Primary Care Provider Active Dr. Tj Vu MD Attending Provider, Referr ing Provider Active Team Status: Inactive Member Role Status Dates Dr. Geena Burroughs MD Primary Care Provider Active Fiona Cruz PA, PA Attending Provider Active Dr. Chuckie Keen MD Referring Provider Active [employer] Supervisor Relationship Specialty Start Date End Date Bryanna Kaleigh Mingo PCP - General Family Practice 07/18/14 [employer] Supervisor Relationship Specialty Start Date End Date Bryanna Kaleigh Mingo PCP - General Family Practice 07/18/14 [employer] Supervisor Relationship Specialty Start Date End Date Kaleigh Gould PCP - General Family Medicine 07/18/14 [employer] Supervisor Relationship Specialty Start Date End Date Bryanna, Kaleigh Mingo PCP - General Family Medicine 07/18/14 Team Status: Inactive Member Role Status Dates Althea Toussaint SENIOR POLICY ASSOCIATE, SENIOR POLICY ASSOCIATE-C Primary Care Provider, Referrin g Provider Active Dr. Chuckie Keen MD Attending Provider Active Team Status: Inactive Member Role Status Dates Althea Toussaint SENIOR POLICY ASSOCIATE, SENIOR POLICY ASSOCIATE-C Primary Care Provider, Referrin g Provider Active Dr. Geena Burroughs MD Attending Provider Active Team Status: Inactive Member Role Status Dates Althea Toussaint SENIOR POLICY ASSOCIATE, SENIOR POLICY ASSOCIATE-C Primary Care Provider Active Dr. Chuckie Keen MD Attending Provider, Referring Provider Active Team Status: Active Member Role Status Dates Dr. Geena Burroughs MD Primary Care Provider Active Dr. Kaleigh Sánchez MD Attending Provider Active Team Status: Inactive Member Role Status Dates Dr. Geena Burroughs MD Primary Care Provider Active Dr. Tripp Pennington MD Emergency Provider Active Team Status: Inactive Member Role Status Dates Dr. Geena Burroughs MD Primary Care Provider Active Start: February 09, 2025 End: February 09, 2025 Mandie Olguin Attending Provider Active Start : February 09, 2025 End: February 09, 2025 Mandie Olguin Referring Provider Active Start : February 09, 2025 End: February 09, 2025 Team Status: Active Member Role/Relationship Status Dates Dr. Geena Burroughs MD Primary Care Provider Active Team Status: Inactive Member Role/Relationship Status Dates Dr. Geena Burroughs MD Primary Care Provider Active Start: February 09, 2025 End: February 09, 2025 Mandie Exira Attending Provider Active Start : February 09, 2025 End: February 09, 2025 Mandie Phelpsing Referring Provider Active Start : February 09, 2025 End: February 09, 2025 Team Status: Inactive Member Role/Relationship Status Dates Dr. Geena Burroughs MD Primary Care Provider Active Start: May 22, 2025 End: May 22, 2025 Dr. Geena Burroughs MD Attending Provider Active Start: May 22, 2025 End: May 22, 2025 Dr. Geena Burroughs MD Referring Provider Active Start: May 22, 2025 End: May 22, 2025 Reason for Visit (unrecogniz ed section and content) Reason Comments Fracture Pain Reason Comments Medication Request (unrecognized sect ion and content) No Status Records FoundNo Status Records FoundNo Status Records Found INFORMATION SOURCE (unrecogn ized section and content) DATE CREATED AUTHOR 07/09/2022 [facility] DATE CREATED AUTHOR AUTHOR'S ORGANIZ ATION 07/29/2022 [facility] ([place]) DATE CREATED AUTHOR AUTHOR'S ORGANIZ ATION 05/26/2025 [facility] Care Team (unrecognized sect ion and content) Care Team Personnel Name: ALTHEA TOUSSAINT APRN-[employer] Position: P4 Advanced Practice Nurse Member Role: Primary Care Physician Address: Address: [address] [place], [place] [address] Care Team Related Persons Name: KRISTIN DARLING Address: Home [address] [place], [place] [id number] Name: GARRET ALONSO Goals (unrecognized section and content) Goals may be documented in a n alternate section FOR RECORDS PERTAINING TO PATIENTS WHO ARE OR HAVE BEEN ENROLLED IN A CHEMICAL DEPENDENCY/SUBSTANCEABUSE PROGRAM, SOME INFORMATION MAY BE OMITTED. This clinical summary was aggregated from multiple sources. Caution should be exercised in using it in the provision of clinical care. This summary normalizes information from multiple sources, and as a consequence, information in this document may materially change the coding, format and clinical context of patient data. In addition, data may be omitted in some cases. CLINICAL DECISIONS SHOULD BE BASED ON THE PRIMARY CLINICAL RECORDS. [employer] provides no warranty or guarantee of the accuracy or completeness of information in this document.
--- NOTE | 2025-06-07 07:39 | MRI_ITS ---
PROCEDURE: LOWER EXT JOINT ONLY (ROUTINE) 06/07/2025 REASON FOR EXAM: KNEE PAIN, SUSPECT MENISCAL TEAR TECHNIQUE: Procedure Code: MRILEJ Modality: MR Procedure: LOWER EXT JOINT ONLY (ROUTINE) Multiplanar and multisequence images were obtained without IV contrast administration. COMPARISON: COMPARISON : None FINDINGS: Femorotibial: Femorotibial alignment is anatomic. There is no positive MR drawer sign. Proximal tibiofibular congruency is maintained. [id number] knee joint effusion with fluid decompressing into the suprapatellar bursa. No hemarthrosis or lipohemarthrosis seen. Patellofemoral: Patellar height is slightly Rosemary. Axial patellofemoral alignment is anatomic. The femoral trochlea is well formed without dysplasia. The patellar retinacula are intact. No thickened medial parapatellar plica. Bone marrow: There is focal bone marrow edema along the peripheral aspect of the medial tibial plateau anterior greater than posterior. There is a demarcated subchondral segment of bone measuring 4.5 mm. Collectively these findings likely represent a post-traumatic osteochondral injury without displacement and surrounding bone marrow edema. Mild subchondral bone marrow edema is seen involving the peripheral margin of the medial femoral condyle adjacent to the tibial plateau injury, likely from bone contusion. No other bone marrow edema is seen. There is no evidence of red marrow reconversion. No suspicious bone lesion is seen. Articular cartilage: Mild chondromalacia of cartilage seen along the medial weight-bearing femoral condyle. No femorotibial full-thickness articular cartilage loss is seen. No punch lesion is seen. Patchy chondromalacia and small cartilage cleft noted along the central and medial patellar facet. Slight fraying of the lateral patellar facet cartilage noted. Femoral trochlear cartilage appears preserved. Soft tissues: There is mild prepatellar edema of indeterminate significance. Mild popliteal fossa edema surrounding the popliteus musculotendinous junction. No significant Oconnell's cyst. Small synovial cysts along the posterior recesses of the knee. Bursa: No significant prepatellar bursitis. Trace amount of fluid within the deep infrapatellar bursa. No significant superficial infrapatellar bursitis. No pes anserinus bursitis. Muscle: Muscle quality at the knee is preserved. There is no evidence of an acute muscle injury or strain. No chronic asymmetric denervation seen. Extensor mechanism: The extensor mechanism is intact. Fat pad: There is mild edema along the free edge of Hoffa's fat pad. No cyclops lesion. Cruciate ligaments: The anterior cruciate ligament is intact. Slight disorganization of proximal fibers of the anterior cruciate ligament could be related to an old partial injury. Posterior cruciate ligament is intact. Collateral ligaments: There is slight thickening of the proximal medial collateral ligament attachment with trace amount of fluid between its fibers likely representing an old injury. The lateral collateral ligament, popliteus tendon origin, biceps femoris attachment and iliotibial bands are intact. Lateral meniscus: The lateral meniscus is not discoid. No lateral meniscal tear is seen. Lateral meniscal roots are intact. The inferior lateral meniscal posterior fascicular attachment appears discontinuous possibly representing an old injury. Medial meniscus: The medial meniscus is morphologically within normal limits. There is an inferiorly surfacing tear of the posterior horn medial meniscus with tiny intrameniscal cyst formation. There is slight fluid sensitive signal hyperintensity along the posterior medial meniscal capsular junction consistent with mild sprain. Medial meniscal roots are intact. MRI/Lower Ext Joint Only (Routine) IMPRESSION: Osteochondral injury involving the medial tibial plateau and an adjacent bone c ontusion involving the medial femoral condyle. - Medial meniscal tear. - Other findings discussed above in detail. Reading Location: [id number]
== END | disposition home or self-care (01) ==
LOC: OPMRI 07:03
PROVIDERS: PCP Internal Medicine; Referring Provider Internal Medicine; Visit Provider Internal Medicine
DX: M25.562 Pain in left knee (principal)
CPT/HCPCS: 73721

== ENCOUNTER → 2025-06-28 | Outpatient (CLI) | payer MEDICARE, BC, SELFPAY ==
[2025-06-28 12:25] LABS: Hematocrit 41.0 % (40-54); Hemoglobin 14.2 g/dL (13.0-16.5); Mean Corp Hgb Conc 34.6 g/dL (32-36); Mean Corpuscular Volume 90.9 fL (80-94); Mean Platelet Vol. 9.9 fl (6.2-12.0); Platelet Count 244 K/mm3 (150-450); RBC Distribution Width CV 12.9 % (11.6-14.6); RBC Distribution Width SD 42.3 fl (35.1-43.9); Red Blood Count 4.51 M/mm3 (4.6-6.2); White Blood Count 7.2 K/mm3 (4.4-11.0)
[2025-06-28 12:48] LABS: AST(SGOT) 19 U/L (<=37); Alanine Aminotransfer ALT/SGPT 18 U/L (<=46); Albumin, Serum 3.9 g/dL (3.4-4.8); Alkaline Phosphatase 106 U/L (40-129); Bilirubin, Direct 0.15 mg/dL (0.00-0.30); Cholesterol 166 mg/dL (<=200); Globulin 1.1 g/dL (2.2-4.2); Low Density Lipoprotein Calc. 100 mg/dL; Triglycerides 115 mg/dL; Very Low Density Lipoprotein 23 mg/dL (5-40); cholesterol:hdl ratio screen 3.82
[2025-06-28 12:51] LABS: Anion Gap 13 (5-15); BUN 12 mg/dL (4-19); BUN/Creat Ratio 13.7 RATIO (10-20); Calcium,Total 9.7 mg/dL (7.6-11.0); Carbon Dioxide 17.2 mmol/L (21.0-32.0); Chloride 108 mmol/L (98-108); Glucose 74 mg/dL (70-99); Potassium 4.3 mmol/L (3.3-5.1)
== END | disposition home or self-care (01) ==
LOC: MTLAB 10:22
PROVIDERS: Nurse Practitioner Family; PCP Internal Medicine; Referring Provider Nurse Practitioner Family; Visit Provider Nurse Practitioner Family
DX: E78.00 Pure hypercholesterolemia, unspecified (principal); I10 Essential (primary) hypertension
CPT/HCPCS: 36415; 80048; 80061; 80076; 85027

== ENCOUNTER → 2025-07-20 | Outpatient (CLI) | payer MEDICARE, BC, SELFPAY ==
[2025-07-20 10:49] LABS: Anion Gap 7 (5-15); BUN 21 mg/dL (4-19); BUN/Creat Ratio 25.0 RATIO (10-20); Calcium,Total 10.3 mg/dL (7.6-11.0); Carbon Dioxide 24.0 mmol/L (21.0-32.0); Chloride 110 mmol/L (98-108); Glucose 100 mg/dL (70-99); Potassium 4.7 mmol/L (3.3-5.1)
== END | disposition home or self-care (01) ==
LOC: LAB 09:59
PROVIDERS: PCP Internal Medicine; Referring Provider Internal Medicine; Visit Provider Internal Medicine
DX: G47.33 Obstructive sleep apnea (adult) (pediatric) (principal); I10 Essential (primary) hypertension; Z99.89 Dependence on other enabling machines and devices
CPT/HCPCS: 36415; 80048